=== PATIENT | male | born 1965 | race Caucasian/White ===

== ENCOUNTER 2024-12-29 23:50 | Observation (INO) | payer OTHER, SELFPAY ==
[2024-12-29 20:48] VITALS: BP 180/136
[2024-12-29 21:04] LABS: Hematocrit 30.3 % (39.0-52.0); Hemoglobin 10.1 g/dL (13.0-18.0); Mean Corp Hgb Conc. 33.3 g/dL (33.0-37.0); Mean Corpuscular Volume 93.2 fL (80.0-94.0); Nucleated Red Blood Cells % 0 % (-); Platelet Count 281 10^3/uL (130-400); Red Cell Dist. Width 13.2 % (11.5-14.5)
[2024-12-29 21:16] LABS: INR 1.17; PT 15.2 Sec (11.4-14.6)
[2024-12-29 21:17] LABS: APTT 31.5 Sec (23.4-35.0)
[2024-12-29 21:38] LABS: Troponin I 0.012 ng/ml
[2024-12-29 21:57] LABS: Blood Urea Nitrogen 38 mg/dl (9-20); Calcium 8.9 mg/dl (8.4-10.2); Carbon Dioxide 24 mmol/L (22-30); Chloride 108 mmol/L (98-107); Estimated Creatinine Clearance 27 ml/min; Glucose 206 mg/dl (70-99); Sodium 135 mmol/L (135-145); eGFR 24.46
[2024-12-29] MEDS: TYLENOL 1000 MG PO (22:20)
[2024-12-29 22:22] VITALS: BP 130/56
--- NOTE | 2024-12-29 22:23 | ED.GENMED ---
History of Present Illness
General
Chief Complaint: Weakness
Time Seen by Provider: 12/29/24 21:39
Nursing documentation reviewed up to this point in time: agreed with
History of Present Illness
History of Present Illness:
59-year-old male brought to the ER from his long-term care facility for evaluation of worsening left-sided weakness. Patient is status post CVA and has been a resident at a snf since that time. He states that he always has weakness since
the stroke but today felt generally worse. Patient has very limited mobility and is also complaining of pain in his right foot. He denies any nausea or vomiting. No chest pain. No shortness of breath but states he has been coughing today. He
denies headache but may be experiencing more blurriness to his vision.
Review of Systems
Review of Systems
Allergies reviewed?: Yes
Phy Exam
Physical Exam
Physical Exam:
Patient is awake, alert, appears in no acute distress, head is NCAT, PERRL, EOMI mucous membranes moist, conjunctiva pink, heart regular rate and rhythm without murmurs or ectopy, lungs are clear to auscultation without wheezes rales or rhonchi, no
JVD, abdomen is soft and nontender on palpation, extremities without edema, patient with weakness on handgrip left upper extremity comparison to right but no pronator drift noted, patient unable to lift his left leg off of the bed for more than 2
seconds, he has full strength right lower extremity, 2+ DP pulses present symmetric bilateral feet, there is a area of ecchymosis present on the posterior aspect of the right heel without surrounding erythema concerning for pressure wound
Course
Orders/Labs/Results
Orders:
Orders
12/29/24 20:52
Electrocardiogram (*1) Urgent
Reason for Study: Other
Other Reason for Exam: Possible Stroke
CT Head W/o Iv Contrast Urgent
Comment:
Reason For Exam: weakness to left side
Cardiac Monitoring- Treatment ONCE
EKG- Treatment ONCE
IV Insert/Care/Rem.- Treatment PRN
Vital Signs As Directed
Frequency: Other
Weight As Directed
Frequency: Once
Comment: ZERO STRETCHER SCALE FOR ACCURATE WEIGHT
O2 Therapy [RESP] Urgent
Titrate/Wean O2 to maintain O2 sat greater than (%): 93
Special Instructions: MAINTAIN CONTINUOUS O2 SATS > OR = 93%
12/29/24 20:55
Basic Metabolic Panel Urgent
Complete Blood Count/With Diff Urgent
PTT Urgent
Prothrombin Time Urgent
Troponin I Urgent
Urinalysis Reflex To Culture Urgent
Date Specimen was Collected: 12/29/24
Time Specimen was Collected: 20:52
12/29/24 21:45
Acetaminophen [Tylenol] 1,000 mg PO NOW STA
12/29/24 21:47
CR Chest - 2 Views Urgent
Comment:
Reason For Exam: cough
12/29/24 22:26
0.9% Sodium Chloride 500 ml [Nss] 500 ml IV BOLUS
12/29/24 22:38
BMP [Basic Metabolic Panel] Urgent
COVID-19 Antigen Urgent
Source: Nasal Swab
Abnormal Lab Results
12/29/24
20:55
RBC 3.25 L 10^6/uL
(4.70-6.10)
Hgb 10.1 L g/dL
(13.0-18.0)
Hct 30.3 L %
(39.0-52.0)
MCH 31.1 H pg
(27.0-31.0)
Absolute Monos (auto) 0.8 H 10^3/uL
(0.1-0.6)
Lymphocytes % 19.1 L %
(20.5-51.1)
Monocytes % 13.1 H %
(1.7-9.3)
Eosinophils % 8.4 H %
(0-6)
PT 15.2 H Sec
(11.4-14.6)
Chloride 108 H mmol/L
(98-107)
BUN 38 H mg/dl
(9-20)
Creatinine 2.9 H mg/dL
(0.7-1.3)
Glucose 206 H mg/dl
(70-99)
12/29/24 20:55
CBC shows mild anemia, no indication for blood transfusion. Creatinine is elevated at 2.9 along with elevation in BUN. No prior labs for comparison
Vital Signs
Initial and Last Documented VS:
Initial Vital Signs
Temp Pulse Resp BP Pulse Ox
98.4 F 45 16 180/136 96
12/29/24 20:48 12/29/24 20:48 12/29/24 20:48 12/29/24 20:48 12/29/24 20:48
Last Documented Vital Signs
Temp Pulse Resp BP Pulse Ox
98.4 F 43 12 180/136 99
12/29/24 20:48 12/29/24 21:15 12/29/24 21:15 12/29/24 20:48 12/29/24 22:26
MDM/Problems Addressed
Differential Diagnosis Includes:
Differential diagnosis to consider but not limited to new CVA, worsened CVA symptoms related to possible ANUP, electrolyte dyscrasia, infection along with other etiologies considered
Chronic conditions affecting care:
Poor mobility, prior stroke, congestive heart failure, hypertension, hyperlipidemia, diabetes, peripheral vascular disease
*Radiology
Radiology exam reviewed: preliminary read by ED provider (I independently viewed and interpreted two-view chest x-ray showing mild cardiomegaly, no infiltrates) and radiology read reviewed (IMPRESSION: No acute intracranial abnormalities. Small old
right frontal lobe infarct. Findings compatible with diffuse cortical atrophy with nonspecific white matter changes as described above.)
*Pulse Oximetry
SaO2: 99
Oxygen Mode of Delivery: Room air
Patient hypoxic: no
*EKG
Interpreted by ED Provider?: Yes (I independently viewed and interpreted twelve-lead EKG showing sinus bradycardia, rate 44, normal axis, nonspecific ST changes without evidence for acute ischemia, no prior for comparison)
*[employer]ing [employer]ator Interpretation
Rate: bradycardiac (I independently viewed and interpreted rhythm strip showing sinus bradycardia, no ectopy)
*Critical Care Note
Total Time (30-74mins, 75-104mins- exclusive of procedures): Not Applicable
Update Note
Update Note:
Patient resting with stable appearance throughout time in the ER. IV fluids ordered given elevation in creatinine, no prior labs for comparison. I did review medical records brought to the ER from his long-term care facility-no labs were included
but I was able to review medication list. No evidence for acute process seen on CT head. Chest x-ray is clear. I reviewed full patient presentation with the hospitalist accepts patient for admission for further hydration and evaluation in light
of new weakness
ED Attending Note
-
Portions of this chart may have been created with voice recognition software.� Occasional wrong word or��sound alike� substitutions may have occurred due to the inherent limitations of voice recognition software.
Discharge Plan
Departure
Prescriptions:
No Action
atorvastatin 40 mg Tablet
40 mg PO HS
Glucagon Emergency Kit 1 mg Kit
1 mg IM PRN PRN (Reason: bs<60)
acetaminophen 325 mg Tablet
650 mg PO Q6H PRN (Reason: pain/fever)
carvedilol 12.5 mg Tablet
25 mg PO BID
trazodone 50 mg Tablet
50 mg PO DAILY
sennosides-docusate sodium 8.6-50 mg Tablet
1 tab-cap PO HS
dextrose [Glucose Gel] 40 % Gel
10 g PO Q15M PRN (Reason: bs < 60)
clopidogrel 75 mg Tablet
75 mg PO DAILY
levothyroxine 75 mcg Tablet
75 mcg PO DAILY
isosorbide dinitrate [Isordil Titradose] 30 mg Tablet
30 mg PO DAILY
magnesium hydroxide [Milk of Magnesia] 400 mg/5 mL Suspension
5 ml PO DAILY PRN (Reason: no bm)
nifedipine 60 mg Tablet Extended Release 24hr
60 mg PO DAILY
tamsulosin 0.4 mg Capsule
0.4 mg PO HS
bisacodyl 10 mg Suppository
10 mg AR DAILY PRN (Reason: no BM)
hydralazine 100 mg Tablet
100 mg PO TID
Fleet Enema 19-7 gram/118 mL Enema
118 ml AR PRN PRN (Reason: if suppository not affective)
aspirin 81 mg Tablet,Chewable
81 mg PO DAILY
risperidone 1 mg Tablet
1 mg PO BID
nicotine 7 mg/24 hr Patch 24 Hour
1 patch TRANSDERMAL Q24H
insulin lispro 100 unit/mL Insulin Pen
8 unit SC MEALS
Lantus U-100 Insulin 100 unit/mL Cartridge
25 unit SC HS
cholecalciferol (vitamin D3) 1,250 mcg (50,000 unit) Capsule
1,250 mcg PO .MON
calcium acetate 667 mg Tablet
667 mg PO MEALS
Interventions
Interventions:
*Risk Screen - Suicide Last Done: 12/29/24 20:48
*General Assessment Last Done: 12/29/24 20:48
*Neglect/Abuse Screening Last Done: 12/29/24 20:48
*ED- Fall Risk Assessment Last Done: 12/29/24 20:48
*ED COVID-19 Vaccine History Last Done: 12/29/24 20:48
ED- Cardiac Assessment Last Done: 12/29/24 21:10
ED- Neurological Assessment Last Done: 12/29/24 21:13
Discharge Date and Time
Print Language: SAMMARINESE
[2024-12-29] MEDS: NSS 500 IV (22:41)
[2024-12-29 23:00] VITALS: BP 130/61
[2024-12-29 23:03] LABS: COVID-19 Antigen Negative (Negative)
[2024-12-29 23:25] VITALS: BMI 28.4
--- NOTE | 2024-12-29 23:42 | HPS.HSE ---
Family Physician
-
Family Physician:
Chief Complaint
-
Chest Pain
History of Present Illness
Patient is a 59y M with PMH significant for ASCVD, hypertension and CKD who presents to ED complaining of chest pain. Initial EMS paperwork and ED report states that patient presented for increased weakness. Pateint tells me that he woke from a
nap around 8PM this evening with left sided chest pain. He reports associated dizziness, nausea, SOB and diaphoresis. he states that his symptoms have since resolved. He is pain free at present. He reports feeling generally weak - but denies any
new focal weakness. He has chronic L sided weakness following prior CVA 3 years ago.
Patient notes that he is typically hospitalized at [facility] for his medical needs. He was last there about three weeks ago - also for chest pain.
Medical History
Past Medical History
Past Medical History: Reports Other
Additional Past Medical History:
ASCVD (CAD, CVA, PAD)
Multidrug Resistant Hypertension
DM-II
CKD IIIB
CVA with Left Hemiparesis
Chronic Anemia
Depression
GERD
BPH
Past Surgical History: Reports Other
Additional Past Surgical History:
CABG
Other surgeries are unknown
Social History
Tobacco: Former Smoker
Alcohol: None
Drug: None
Living: [facility]
Family History
Family History: Not pertinent
Allergies / Home Medications
Allergies reflects when Allergies were last updated in [employer].
Home Medications with original date entered in [employer]
Allergy/Medication List:
Allergies
Allergy/AdvReac Type Severity Reaction Status Date / Time
Iodinated Contrast Media Allergy Unknown Verified 12/29/24 21:04
shellfish derived Allergy Unknown Verified 12/29/24 21:04
Home Medications
acetaminophen 325 mg tablet 650 mg PO Q6H PRN pain/fever 12/29/24
aspirin 81 mg chewable tablet 81 mg PO DAILY 12/29/24
atorvastatin 40 mg tablet 40 mg PO HS 12/29/24
bisacodyl 10 mg rectal suppository 10 mg [place] DAILY PRN no BM 12/29/24
calcium acetate 667 mg tablet 667 mg PO MEALS 12/29/24
carvedilol 12.5 mg tablet 25 mg PO BID 12/29/24
cholecalciferol (vitamin D3) 1,250 mcg (50,000 unit) capsule 1,250 mcg PO .MON 12/29/24
clopidogrel 75 mg tablet 75 mg PO DAILY 12/29/24
dextrose 40 % oral gel (Glucose Gel) 10 g PO Q15M PRN bs < 60 12/29/24
glucagon 1 mg injection kit 1 mg IM PRN PRN bs<60 12/29/24
hydralazine 100 mg tablet 100 mg PO TID 12/29/24
insulin glargine 100 unit/mL subcutaneous cartridge 25 unit SC HS 12/29/24
insulin lispro 100 unit/mL subcutaneous pen 8 unit SC MEALS 12/29/24
isosorbide dinitrate 30 mg tablet 30 mg PO DAILY 12/29/24
levothyroxine 75 mcg tablet 75 mcg PO DAILY 12/29/24
magnesium hydroxide 400 mg/5 mL oral suspension (Milk of Magnesia) 5 ml PO DAILY PRN no bm 12/29/24
nicotine 7 mg/24 hr daily transdermal patch 1 patch transdermal Q24H 12/29/24
nifedipine 60 mg tablet,extended release 24 hr 60 mg PO DAILY 12/29/24
risperidone 1 mg tablet 1 mg PO BID 12/29/24
sennosides 8.6 mg-docusate sodium 50 mg tablet 1 tab-cap PO HS 12/29/24
sodium phosphates 19 gram-7 gram/118 mL enema (Fleet Enema) 118 ml [place] PRN PRN if suppository not affective 12/29/24
tamsulosin 0.4 mg capsule 0.4 mg PO HS 12/29/24
trazodone 50 mg tablet 50 mg PO DAILY 12/29/24
Review of Systems
-
History Source: Patient
Constitutional: Reports Fatigue; Denies Fever or Chills
EENT: Denies Sore Throat
Respiratory: Reports Trouble Breathing; Denies Cough
Cardiac: Reports Chest Pain and Diaphoresis; Denies Palpitations
Abdomen/GI: Reports Nausea; Denies Abdominal Pain, Vomiting or Diarrhea
: Denies Dysuria, Frequency or Flank Pain
Musculoskeletal: Denies Joint Pain or Edema
Neurological: Reports Dizzy and Weakness; Denies Headache
Psych: Denies Depression or Anxiety
Physical Exam
Vital Signs
Vital Signs
Temp Pulse Resp BP Pulse Ox
98.4 F 43 18 180/136 99
12/29/24 20:48 12/29/24 21:15 12/29/24 22:00 12/29/24 20:48 12/29/24 22:26
Physical Exam
General: Other (59y M with depressed affect is resting comfortably.)
HEENT: Moist mucous membranes and PERRLA
Respiratory: Clear; No Wheezes, Rales or Rhonchi
Cardiac: S1/S2 and Regular Rhythm; No Murmur
GI: Soft, Non Tender, Non Distended and Normal Bowel Sounds
Musculoskeletal: No Clubbing, No Cyanosis and No Edema
Neuro: AO x 3 and Other (L weakness - chronic and unchanged per patient.)
Laboratory Results
-
12/29/24 20:55
Laboratory Results
PT 15.2 Sec (11.4-14.6) H 12/29/24 20:55
INR 1.17 12/29/24 20:55
APTT 31.5 Sec (23.4-35.0) 12/29/24 20:55
Total Bilirubin Cancelled 12/29/24 20:55
AST Cancelled 12/29/24 20:55
ALT Cancelled 12/29/24 20:55
Alkaline Phosphatase Cancelled 12/29/24 20:55
Troponin I 0.012 ng/ml 12/29/24 20:55
Impression/Plan
-
A/P: Patient is a 59y M with PMH significant for ASCVD, L hemiparesis s/p prior CVA and CKD IIIB who presents to ED for evaluation of chest pain +/- weakness.
Chest Pain
ASCVD
- Observe overnight for further evaluation and treatment.
- Initial EKG without evident ischemia. Initial troponin unremarkable.
- Patient notes that he is pain-free at present.
- Monitor on telemetry.
- Follow serial troponin to peak.
- Continue current CV med regimen including DAPT, statin, etc.
- Cardiology evaluation if any recurrent chest pain or significant increase in troponin
- Obtain recent records from [facility] for review.
ANUP v CKD
- Patient has known diagnosis of CKD IIIB per [place] record.
- Current SCr = 2.9 - no prior labs to compare.
- Not clear that this is a significant change from his baseline.
- Obtain prior records as noted above.
- Follow SCr for changes.
Left Hemiparesis as Late Effect of CVA
- Patient with some generalized / global weakness - but no new focal deficits.
- CT head in the ED was unremarkable.
- Follow serial neuro exams.
- Continue current med regimen as noted above.
Multidrug Resistant Hypertension
- BP elevated in the ED.
- Continue extensive multidrug regimen and adjust as needed / able for improved BP control.
- If patient has recurrent chest pain - consider adding IV NTG for pain / BP control (pain free at present).
DM-II
- Stable. Continue basal : bolus insulin regimen.
- Follow glucose and cover with SSI as needed.
- Update A1C.
Anemia of CKD
- Unclear baseline. Obtain prior records as noted.
- Follow H&H for any changes.
Major Depression
- Patient currently with flat / depressed affect.
- Continue trazodone (which is only PRN for sleep).
- Continue risperidone.
DVT Prophylaxis: Subcut Heparin
Code Status: Full
[2024-12-29 23:43] LABS: Blood Urea Nitrogen 37 mg/dl (9-20); Calcium 8.8 mg/dl (8.4-10.2); Carbon Dioxide 24 mmol/L (22-30); Chloride 110 mmol/L (98-107); Estimated Creatinine Clearance 27 ml/min; Glucose 195 mg/dl (70-99); Potassium 4.6 mmol/L (3.5-5.1); Sodium 137 mmol/L (135-145); eGFR 24.46
[2024-12-30] VITALS (11 sets, daily range): BP systolic 111–182; BP diastolic 45–74; PULSE 44; O2SAT 98; BMI 27.6
[2024-12-30 02:05] LABS: Glucose - Point of Care 169 mg/dl (70-99)
[2024-12-30] MEDS: NICODERM TRANSDERMAL 7 MG TRANSDERM (02:27)
[2024-12-30 03:37] LABS: Troponin I 0.013 ng/ml
--- NOTE | 2024-12-30 04:22 | PTCARENOTE ---
Patient received from ED via stretcher and was pulled to bed by staff. He was drowsy with slurred speech but became more arousable. He was oriented to room and surroundings. See nursing assessment for physical findings. NIH 4. See wound care.
WOC consult placed. Call clark in reach.
[2024-12-30] MEDS: SYNTHROID 75 MCG PO (05:01)
[2024-12-30 05:19] LABS: Urine Character Clear (Clear)
[2024-12-30 05:29] LABS: Urine Squamous Cell 0-2 /LPF (Few)
[2024-12-30 05:30] LABS: Urine Red Blood Cell 0-2 /HPF (0-2); Urine White Cell 0-2 /HPF (0-5)
--- NOTE | 2024-12-30 08:07 | W.PN.HOSP.TC ---
Addendum entered and electronically signed by Emma Ravi MD 12/30/24 12:34:
Clarified with geriatric case manager, patient is a [facility] at a [facility]. Will discharge him today back to [place] after review of labs.
Original Note:
Today's Communication/Plan
-
Opponent is negative, and patient is CP free however he states his main issue was acute worsening of weakness. Follow-up PT/OT eval
Patient is on the streets. CM consult
Assessment / Plan
Assessment / Plan
59M w/ CAD, HTN and CKD p/w chest pain.
Chest Pain�resolved
- Initial EKG without evident ischemia. troponin x 3 negative.
- Patient notes that he is pain-free at present.
- Monitor on telemetry.
- Continue current CV med regimen including DAPT, statin, etc.
- Cardiology evaluation if any recurrent chest pain or significant increase in troponin
- Obtain recent records from [facility] for review.
ANUP v CKD
- Patient has known diagnosis of CKD IIIB per [place] record.
- Current SCr = 2.9 - no prior labs to compare.
- Not clear that this is a significant change from his baseline.
- Obtain prior records as noted above.
- Follow SCr for changes.
Left Hemiparesis as Late Effect of CVA
- Patient with some generalized / global weakness - but no new focal deficits.
- CT head in the ED was unremarkable.
- Follow serial neuro exams.
- Continue current med regimen as noted above.
As patient presents states he has worsening weakness, will have PT/OT eval
Multidrug Resistant Hypertension
- BP elevated in the ED. Now controlled
- Continue home multidrug regimen and adjust as needed / able for improved BP control.
- If patient has recurrent chest pain - consider adding IV NTG for pain / BP control (pain free at present).
DM-II
- Stable. Continue basal : bolus insulin regimen.
- Follow glucose and cover with SSI as needed.
- Hgb A1C -9%. Review outpatient labs to find out baseline
Anemia of CKD
- Unclear baseline. Obtain prior records as noted.
- Follow H&H for any changes.
Major Depression
- Patient currently with flat / depressed affect.
- Continue trazodone (which is only PRN for sleep).
- Continue risperidone.
DVT Prophylaxis: Subcut Heparin
Code Status: Full
Anticipated Discharge: Within 24 hours
Subjective/Interval History
-
Date of Service: December 30, 2024
Patient denies chest pain. States that came in because 'I had a stroke', says he woke up with left-sided weakness, similar to his previous stroke, right arm and right leg, and his face felt weak.
Patient states [place] on the streets.
Objective Data
-
Labs:
Laboratory Results
12/29/24 12/29/24 12/30/24
20:55 22:38 07:37
WBC 6.4 Pending
Hgb 10.1 L Pending
Hct 30.3 L Pending
Plt Count 281 Pending
PT 15.2 H
INR 1.17
APTT 31.5
Sodium 135 137 Pending
Potassium 4.6 Pending
Chloride 108 H 110 H Pending
Carbon Dioxide 24 24 Pending
BUN 38 H 37 H Pending
Creatinine 2.9 H 2.9 H Pending
Glucose 206 H 195 H Pending
Calcium 8.9 8.8 Pending
Total Bilirubin Cancelled
AST Cancelled
ALT Cancelled
Alkaline Phosphatase Cancelled
Vital Signs:
Vital Signs
Temp Pulse Resp BP Pulse Ox
97.4 F 54 18 154/64 95
12/30/24 03:24 12/30/24 03:24 12/30/24 03:24 12/30/24 03:24 12/30/24 03:24
Review of Systems
-
All other systems: Reviewed and negative
Physical Exam
-
General: No Apparent Distress
HEENT: Moist Mucous Membranes, Anicteric and PERRLA
Respiratory: Clear to Auscultation; Negative Wheezes, Rales or Rhonchi
Cardiac: Regular Rhythm and S1/S2; Negative Murmur, Rub or Gallop
GI: Soft, Nontender, Nondistended and Normal Bowel Sounds
Musculoskeletal: No Edema
Skin: Warm and Dry; Negative Rash, Ulcers or Lesions
Neuro: Awake, AO x 3 and Other (Strength 4 out of 5 bilateral upper extremity, bilateral lower extremity)
Hematologic / Lymphatic: No Lymphadenopathy
Psych: Calm
Data Reviewed
-
CT Scan: Report Reviewed by me
Labs: Labs Reviewed by me
[2024-12-30 08:30] LABS: Glucose - Point of Care 180 mg/dl (70-99)
[2024-12-30] MEDS: PROCARDIA XL (EXTENDED RELEASE) 60 MG PO (08:36)
[2024-12-30] MEDS: PLAVIX 75 MG PO (08:37)
[2024-12-30] MEDS: LOW STRENGTH ASPIRIN 81 MG PO (08:37)
[2024-12-30] MEDS: APRESOLINE 100 MG PO ×3 (08:37→21:31)
[2024-12-30] MEDS: RISPERDAL 1 MG PO ×2 (08:38→20:03)
[2024-12-30] MEDS: PHOSLO 667 MG PO ×3 (08:38→16:31)
[2024-12-30] MEDS: COREG PO ×2 (08:39→19:39)
[2024-12-30] MEDS: SORBITRATE 30 MG PO (08:39)
[2024-12-30] MEDS: HEPARIN 5000 UNITS SC ×2 (08:39→20:03)
[2024-12-30 08:40] LABS: Hematocrit 32.5 % (39.0-52.0); Hemoglobin 10.9 g/dL (13.0-18.0); Mean Corp Hgb Conc. 33.5 g/dL (33.0-37.0); Mean Corpuscular Volume 94.2 fL (80.0-94.0); Platelet Count 298 10^3/uL (130-400); Red Cell Dist. Width 13.2 % (11.5-14.5)
[2024-12-30] MEDS: CATAPRES 0.2 MG PO ×2 (08:40→20:03)
[2024-12-30] MEDS: NOVOLOG FLEXPEN-LOW RESISTANCE 1 UNITS SC (08:41)
[2024-12-30] MEDS: NOVOLOG FLEXPEN 8 UNITS SC ×3 (08:46→16:32)
[2024-12-30 09:03] LABS: Blood Urea Nitrogen 34 mg/dl (9-20); Calcium 9.2 mg/dl (8.4-10.2); Carbon Dioxide 24 mmol/L (22-30); Chloride 109 mmol/L (98-107); Estimated Creatinine Clearance 26 ml/min; Glucose 169 mg/dl (70-99); HDL Cholesterol 42 mg/dl; LDL Cholesterol, Calculated 77 mg/dl; Potassium 4.3 mmol/L (3.5-5.1); Sodium 139 mmol/L (135-145); Very Low Density Lipoprotein 35 mg/dl (0-30); eGFR 23.49
[2024-12-30 09:14] LABS: Troponin I < 0.012 ng/ml
[2024-12-30 11:15] LABS: Glycohemoglobin (HgbA1c) 9.0 % (4.0-5.6)
--- NOTE | 2024-12-30 11:15 | CM ---
CM reviewed chart, patient seen bedside, initial assessment completed.
Patient is a 59 year old male with PMH significant for ASCVD, hypertension and CKD who presents to ED complaining of chest pain.
Patient is a LTC resident at [facility]. Per Carola (Admissions [facility]) patient is typically AOx3, typically ambulatory with RW assist x1 or contact guard, feed self independently, assist X1 or contact guard for dressing/toileting. Patient
reports he uses WC at facility. PCP James Red, pharmacy [facility]. Per [facility], patient does have MA, working on obtaining LTC MA at facility, patient is currently listed as self-pay. OBS form reviewed, provided, placed in chart.
Plan; return to [facility] LT when stable
[2024-12-30 12:06] LABS: Glucose - Point of Care 254 mg/dl (70-99)
--- NOTE | 2024-12-30 12:12 | PTCARENOTE ---
attending notified pt SB on monitor HR low 40's BP 145/54, asymptomatic drowsy but easily aroused to verbal stimuli.
[2024-12-30] MEDS: NOVOLOG FLEXPEN-LOW RESISTANCE 3 UNITS SC ×2 (12:27→16:32)
[2024-12-30] MEDS: TYLENOL 650 MG PO ×2 (14:16→20:30)
[2024-12-30 16:25] LABS: Glucose - Point of Care 200 mg/dl (70-99)
[2024-12-30 21:26] LABS: Glucose - Point of Care 182 mg/dl (70-99)
[2024-12-30] MEDS: LANTUS 0.25 UNITS SC (21:29)
[2024-12-30] MEDS: FLOMAX 0.4 MG PO (21:32)
[2024-12-30] MEDS: LIPITOR 40 MG PO (21:32)
[2024-12-31] MEDS: NICODERM TRANSDERMAL 7 MG TRANSDERM ×2 (02:04→13:09)
[2024-12-31 02:09] VITALS: BP 172/68
[2024-12-31 03:09] VITALS: BP 173/68
[2024-12-31] MEDS: APRESOLINE 10 MG IV (03:23)
--- NOTE | 2024-12-31 03:25 | PTCARENOTE ---
Pt with elevated BPs throughout shift, House [employer] notified order for 10 mg IV hydralazine- given at 0323 for BP 173/68 HR 57. Rechecked BP at 0504 175/69 HR 56 [place] [employer] aware, no new orders at this time.
[2024-12-31] MEDS: TYLENOL 650 MG PO ×2 (03:48→10:11)
[2024-12-31] MEDS: SYNTHROID 75 MCG PO (04:21)
[2024-12-31 05:04] VITALS: BP 175/69
[2024-12-31 06:00] VITALS: BMI 27.5
[2024-12-31 08:12] LABS: Glucose - Point of Care 141 mg/dl (70-99)
[2024-12-31 08:26] VITALS: BP 177/71
[2024-12-31] MEDS: PHOSLO 667 MG PO ×2 (08:27→12:06)
[2024-12-31] MEDS: NOVOLOG FLEXPEN-LOW RESISTANCE SC (08:27)
[2024-12-31] MEDS: APRESOLINE 100 MG PO (08:28)
[2024-12-31] MEDS: LOW STRENGTH ASPIRIN 81 MG PO (08:28)
[2024-12-31] MEDS: COREG 25 MG PO (08:28)
[2024-12-31] MEDS: CATAPRES 0.2 MG PO (08:29)
[2024-12-31] MEDS: PROCARDIA XL (EXTENDED RELEASE) 60 MG PO (08:29)
[2024-12-31] MEDS: RISPERDAL 1 MG PO (08:29)
[2024-12-31] MEDS: PLAVIX 75 MG PO (08:29)
[2024-12-31] MEDS: HEPARIN 5000 UNITS SC (08:29)
[2024-12-31] MEDS: SORBITRATE 30 MG PO (08:29)
[2024-12-31] MEDS: FLUSH (NSS) 1 FLUSH IV (08:30)
[2024-12-31 09:04] LABS: Hematocrit 33.3 % (39.0-52.0); Hemoglobin 10.9 g/dL (13.0-18.0); Mean Corp Hgb Conc. 32.7 g/dL (33.0-37.0); Mean Corpuscular Volume 95.1 fL (80.0-94.0); Platelet Count 307 10^3/uL (130-400); Red Cell Dist. Width 13.1 % (11.5-14.5)
[2024-12-31] MEDS: NOVOLOG FLEXPEN 8 UNITS SC ×2 (09:38→12:06)
[2024-12-31 09:45] LABS: Blood Urea Nitrogen 38 mg/dl (9-20); Calcium 9.3 mg/dl (8.4-10.2); Carbon Dioxide 24 mmol/L (22-30); Chloride 108 mmol/L (98-107); Estimated Creatinine Clearance 26 ml/min; Glucose 140 mg/dl (70-99); Potassium 4.8 mmol/L (3.5-5.1); Sodium 137 mmol/L (135-145); eGFR 23.49
[2024-12-31 09:51] VITALS: BMI 27.5
[2024-12-31 11:31] LABS: Glucose - Point of Care 244 mg/dl (70-99)
[2024-12-31 11:40] VITALS: BP 166/74
--- NOTE | 2024-12-31 11:46 | W.PN.HOSP.TC ---
Today's Communication/Plan
-
d/c
Assessment / Plan
Assessment / Plan
59M w/ CAD, HTN and CKD p/w chest pain.
Chest Pain�resolved - Initial EKG without evident ischemia. troponin x 3 negative. - Continue current CV med regimen including DAPT, statin, etc.
ANUP v CKD-- Patient has known diagnosis of CKD IIIB per [place] record - Current SCr = 2.9 - no prior labs to compare - Not clear that this is a significant change from his baseline - Obtain prior records as noted above.
Left Hemiparesis as Late Effect of CVA - Patient with some generalized / global weakness - but no new focal deficits.- CT head in the ED was unremarkable.
Multidrug Resistant Hypertension - BP elevated in the ED. Now controlled - Continue home multidrug regimen and adjust as needed / able for improved BP control.
DM-II - Stable. Continue basal : bolus insulin regimen - Follow glucose and cover with SSI as needed - Hgb A1C -9%. Review outpatient labs to find out baseline
Anemia of CKD - Unclear baseline. Obtain prior records as noted - Follow H&H for any changes.
Major Depression - Patient currently with flat / depressed affect - Continue trazodone (which is only PRN for sleep) - Continue risperidone.
DVT Prophylaxis: Subcut Heparin
Code Status: Full
Anticipated Discharge: Today
Subjective/Interval History
-
Date of Service: December 31, 2024
pt is chest pain free
Objective Data
-
Labs:
Laboratory Results
12/31/24
07:31
WBC 5.7
Hgb 10.9 L
Hct 33.3 L
Plt Count 307
Sodium 137
Potassium 4.8
Chloride 108 H
Carbon Dioxide 24
BUN 38 H
Creatinine 3.0 H
Glucose 140 H
Calcium 9.3
Vital Signs:
max temp for 24 hours
12/30/24
23:24
Temp 98.4 F
Vital Signs
Temp Pulse Resp BP Pulse Ox
98 F 54 18 166/74 95
12/31/24 11:40 12/31/24 11:40 12/31/24 11:40 12/31/24 11:40 12/31/24 11:40
I&O
12/30/24 12/31/24 01/01/25
06:59 06:59 06:59
Intake Total 840 / 840 240 / 240
Output Total 1900 / 1900 500 / 500
Balance -1060 / -1060 -260 / -260
Review of Systems
-
All other systems: Reviewed and negative
Physical Exam
-
General: Well Developed, Well Nourished and No Apparent Distress
HEENT: Normocephalic and Atraumatic
Respiratory: Clear to Auscultation; Negative Wheezes or Rhonchi
Cardiac: Regular Rhythm and S1/S2; Negative Murmur
GI: Soft, Nontender, Nondistended and Normal Bowel Sounds
Musculoskeletal: No Clubbing, No Cyanosis and No Edema
Skin: Warm
Neuro: Awake
Psych: Calm
--- NOTE | 2024-12-31 11:47 | CM ---
Chart Reviewed. Met pt at beside. pt to be discharge today per Dr. Perez back to [facility].Requesting insurance info from [facility]: Medicaid number is [id number]. NO family available to transport pt. Will set-up ambulance transfer.
Plan: DC to [facility]
Report# [phone] ask for 1st floor nurses station
[2024-12-31] MEDS: NOVOLOG FLEXPEN-LOW RESISTANCE 2 UNITS SC (12:06)
--- NOTE | 2024-12-31 12:09 | WOUNDNOTE ---
[facility] RN note: Patient admitted with chest pain.
See H&P for complete history.
PMH: Patient is from [facility],Multidrug Resistant Hypertension, DM-II, CKD IIIB, CVA with Left Hemiparesis, Chronic Anemia, Depression
GERD, BPH
Wound Location and type/assessment: Patient admitted with bilateral heel wounds. Left heel is a yellow, ecchymotic DTI and right lateral heel has an unstageable lateral heel DTI. See worklist for measurement and description. No drainage or odor
noted from either heel. Patient with a small, dry linear wound that appears to be from [facility]. The surrounding skin is blanchable red. Patient said he tries to use urinal at [facility] but is often incontinent. He says he sleeps on his side and tries to stay
off of his scrum. He also mentioned that the [facility] recently ordered heel relief boots for him. He says he is able to get OOB to transfer to chair with walker and assistance.
Appetite: fair
Pressure redistribution devices in place: Static air overlay ordered and to be placed on bed. Fiber filled boots ordered. Air cushion applied to chair.
Plan: Applied no-sting barrier and silicone foam to heels and off-loaded heels with pillows under calves until boots arrive. Applied barrier ointment to buttocks, covered with silicone border foam. Encourage use of urinal, consider use of condom
cath. RN Abbey updated. Will confirm orders and update care plan and discharge. Patient should have
Updated care plan and will follow as needed.
Note to case management of equipment requested for discharge: Patient should have air surface at facility.
Recommend follow up at wound care center upon discharge.
--- NOTE | 2024-12-31 12:41 | CM ---
Chart reviewed. Met pt chairside. Pt is discharged today. [facility] aware. Made ambulance arrangement back to [facility] via ambulance at 5:30pm. Pt and primary contact Key notified re transport.
Plan: DC back to [facility] today vai ambulance
--- NOTE | 2024-12-31 14:42 | W.DCSUMMARY ---
Discharge Summary
Discharge Data
Date of Admission: 12/29/24
Date of Discharge: 12/31/24
-
Pending Results: No
Hospital Course
Primary care physician : James Red
Principal Discharge diagnosis : Chest pain
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
Hospital Course : Patient was a 59-year-old male long[facility] who presented with left-sided chest pain. Patient stated that he woke from a nap around 8 PM on the evening of admission. He denied dizziness, nausea, shortness of
breath, or diaphoresis. Symptoms have since resolved. Patient was admitted.
Problem #1: Chest pain. This was resolved prior to his admission. Initial EKG was without any evidence of ischemia and troponins were checked and were negative x 3. He was continued on his current medication regimen.
Problem #2: All other medical issues. 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
major depression. The patient has never been here before. He does have a diagnosis of chronic kidney disease stage IIIb. Creatinine has been stable here since admission (2.9, 2.9, 3.0, 3.0). These medical issues were stable during his
hospitalization. Medications were continued as able.
Patient is stable for discharge back to his [facility] at this time. If there are any questions regarding this dictation or his hospital stay, please do not hesitate to call. Our office number is [phone].
Important imaging findings :
CHEST X-RAY IMPRESSION:
Heart at least top normal in size.
No acute pulmonary process.
HEAD CT SCAN IMPRESSION:
No acute intracranial abnormalities.
Small old right frontal lobe infarct.
Findings compatible with diffuse cortical atrophy with nonspecific white matter changes
Discharge Plan
-
Patient Disposition: [facility]/SNF
Discharge Diagnosis/Procedures: chest pain and weakness
Condition: Good
Diet: Diabetic, Carb Controlled
Activity: With assistance
Driving Restrictions: No driving
Other Services: PT and OT
Activity Restrictions/Additional Instructions:
Wound Care Instructions Sacrum- Apply barrier ointment PRN
Bilateral Heels- Clean with saline. Apply no-sting barrier and silicone foam to heels. Off-load heels with fiber filled boots when in bed
Patient needs air mattress
Air cushion to chair
Encourage frequent turning and repositioning
Follow up at wound care center call for an appointment.
Referrals:
James Red DO [Family Provider, Internal Medicine]
Prescriptions:
Continued
atorvastatin 40 mg Tablet
40 mg PO HS
glucagon 1 mg Kit
1 mg IM PRN PRN (Reason: bs<60)
acetaminophen 325 mg Tablet
650 mg PO Q6H PRN (Reason: pain/fever)
carvedilol 12.5 mg Tablet
25 mg PO BID
trazodone 50 mg Tablet
50 mg PO DAILY PRN (Reason: sleep)
sennosides-docusate sodium 8.6-50 mg Tablet
1 tab-cap PO HS
dextrose [Glucose Gel] 40 % Gel
10 g PO Q15M PRN (Reason: bs < 60)
clopidogrel 75 mg Tablet
75 mg PO DAILY
levothyroxine 75 mcg Tablet
75 mcg PO DAILY
isosorbide dinitrate 30 mg Tablet
30 mg PO DAILY
magnesium hydroxide [Milk of Magnesia] 400 mg/5 mL Suspension
5 ml PO DAILY PRN (Reason: no bm)
nifedipine 60 mg Tablet Extended Release 24hr
60 mg PO DAILY
tamsulosin 0.4 mg Capsule
0.4 mg PO HS
bisacodyl 10 mg Suppository
10 mg NJ DAILY PRN (Reason: no BM)
hydralazine 100 mg Tablet
100 mg PO TID
Fleet Enema 19-7 gram/118 mL Enema
118 ml NJ PRN PRN (Reason: if suppository not affective)
aspirin 81 mg Tablet,Chewable
81 mg PO DAILY
risperidone 1 mg Tablet
1 mg PO BID
nicotine 7 mg/24 hr Patch 24 Hour
1 patch TRANSDERMAL Q24H
insulin lispro 100 unit/mL Insulin Pen
8 unit SC MEALS
insulin glargine 100 unit/mL Cartridge
25 unit SC HS
cholecalciferol (vitamin D3) 1,250 mcg (50,000 unit) Capsule
1,250 mcg PO .MON
calcium acetate 667 mg Tablet
667 mg PO MEALS
Discharge Orders:
Discharge Patient (As Directed); Ordered 12/31/24
Ordered By: Germania Perez
Discharge Date and Time
Print Language: NIGERIAN
== END 2024-12-31 15:03 ==
LOC: 4 EAST ACU 23:50
PROVIDERS: Internal Medicine; ADMITTING PHYSICIAN Hospitalist; ATTENDING PHYSICIAN Internal Medicine; EMERGENCY PHYSICIAN Emergency Medicine; FAMILY PHYSICIAN Internal Medicine
DX: N17.9 Acute kidney failure, unspecified (principal); R53.1 Weakness; I69.352 Hemiplegia and hemiparesis following cerebral infarction affecting left dominant side; M79.671 Pain in right foot; R05.9 Cough, unspecified; I1A.0 Resistant hypertension; D63.1 Anemia in chronic kidney disease; I69.354 Hemiplegia and hemiparesis following cerebral infarction affecting left non-dominant side; I50.9 Heart failure, unspecified; I13.0 Hypertensive heart and chronic kidney disease with heart failure and stage 1 through stage 4 chronic kidney disease, or unspecified chronic kidney disease; E78.5 Hyperlipidemia, unspecified; E11.51 Type 2 diabetes mellitus with diabetic peripheral angiopathy without gangrene; G31.9 Degenerative disease of nervous system, unspecified; R07.89 Other chest pain; I25.10 Atherosclerotic heart disease of native coronary artery without angina pectoris; E11.22 Type 2 diabetes mellitus with diabetic chronic kidney disease; F32.9 Major depressive disorder, single episode, unspecified; R00.1 Bradycardia, unspecified; N18.32 Chronic kidney disease, stage 3b; N40.0 Benign prostatic hyperplasia without lower urinary tract symptoms; K21.9 Gastro-esophageal reflux disease without esophagitis; Z59.02 Unsheltered homelessness; Z95.1 Presence of aortocoronary bypass graft; Z87.891 Personal history of nicotine dependence; Z79.4 Long term (current) use of insulin; Z79.82 Long term (current) use of aspirin; Z79.890 Hormone replacement therapy; Z79.899 Other long term (current) drug therapy; Z91.041 Radiographic dye allergy status; Z91.013 Allergy to seafood; Z79.02 Long term (current) use of antithrombotics/antiplatelets
CPT/HCPCS: 70450; 71046; 80048; 80061; 81003; 81015; 82962; 83036; 84484; 85025; 85027; 85610; 85730; 87070; 87811; 93005; 96360; 96361; 97163; 99285; G0378

== ENCOUNTER 2025-01-08 10:47 | Emergency (ER) | payer OTHER, SELFPAY ==
[2025-01-08 10:51] VITALS: BP 142/57
[2025-01-08 10:54] VITALS: BP 142/57
[2025-01-08 10:55] LABS: Glucose - Point of Care 306 mg/dl (70-99)
[2025-01-08 11:38] VITALS: BP 121/68
[2025-01-08 12:08] LABS: Hematocrit 33.0 % (39.0-52.0); Hemoglobin 11.4 g/dL (13.0-18.0); Mean Corp Hgb Conc. 34.5 g/dL (33.0-37.0); Mean Corpuscular Volume 89.4 fL (80.0-94.0); Nucleated Red Blood Cells % 0 % (-); Platelet Count 331 10^3/uL (130-400); Red Cell Dist. Width 12.9 % (11.5-14.5)
[2025-01-08 12:17] LABS: APTT 29.5 Sec (23.4-35.0); INR 1.17; PT 15.2 Sec (11.4-14.6)
[2025-01-08 12:22] LABS: ALT (SGPT) 13 U/L (0-50); AST (SGOT) 12 U/L (17-59); Albumin 3.4 g/dl (3.5-5.0); Alkaline Phosphatase 89 U/L (38-126); Blood Urea Nitrogen 44 mg/dl (9-20); Calcium 9.0 mg/dl (8.4-10.2); Carbon Dioxide 23 mmol/L (22-30); Chloride 105 mmol/L (98-107); Glucose 302 mg/dl (70-99); Potassium 4.9 mmol/L (3.5-5.1); Sodium 135 mmol/L (135-145); Total Protein 6.2 g/dl (6.3-8.2); eGFR 19.52
--- NOTE | 2025-01-08 12:24 | ED.CVA ---
History of Present Illness
General
Chief Complaint: CVA/TIA Symptoms
Source: patient
Exam Limitations: none
Time Seen by Provider: 01/08/25 11:03
Nursing documentation reviewed up to this point in time: agreed with
Onset of Stroke Symptoms
Onset of symptoms known: No
Time pt last seen normal is known: No
History of Present Illness
History of Present Illness:
Patient is a 59-year-old male from [facility] with past medical history of CHF hypertension hyperlipidemia stroke with left hemiparesis type 2 diabetes anemia chronic kidney disease stage IIIb presents to the ER from [facility]. He was
reported the patient was leaning over to his left side while in the shower. When EMS arrived symptoms were resolved. Patient presents awake alert oriented x 3 he is able to give full history. He has chronic left upper and left lower extremity
weakness from previous CVA he does not feel a change in his chronic weakness at this time.
I spoke to nurse who reports he was in a chair in the shower and pt was not responding to her and leaning to the right. this lasted for 10- 15 min. Patient does not recall this. He does recall being in the shower.
Patient was recently admitted here December 29 and discharged December 31. That time he complained of chest pain. Had negative workup and was discharged back to long-term
Phy Exam
General Physical Exam
General Presentation: no apparent distress
General age: appears older than age
General Skin: warm and dry
General Habitus: normal
General Mental: alert
General Hydration: dry mucous membranes
Cardiovascular Exam
Cardiovascular Exam: regular rate/rhythm and no murmur
Pulmonary Exam
Pulmonary Exam: lungs clear and no respiratory distress
Neurological Exam
Neurological Exam: alert and oriented x3
[place] Coma Scale
Eye Opening: Spontaneous
Verbal Response: Oriented
Motor Response: Obeys Commands
GCS Total Score: 15
Musculoskeletal Exam
Musculoskeletal Exam: full ROM
Course
Orders/Labs/Results
Orders:
Orders
01/08/25 11:00
EKG [Electrocardiogram (*1)] Urgent
Reason for Study: Bradycardia / Tachycardia
01/08/25 11:01
EKG- Treatment ONCE
01/08/25 11:53
Cardiac Monitoring- Treatment ONCE
Vital Signs As Directed
Frequency: Other
Weight As Directed
Frequency: Once
Comment: ZERO STRETCHER SCALE FOR ACCURATE WEIGHT
01/08/25 11:58
Complete Blood Count/With Diff Urgent
Comprehensive Metabolic Panel Urgent
PTT Urgent
Prothrombin Time Urgent
Troponin I Urgent
01/08/25 13:24
CT Head W/o Iv Contrast Urgent
Comment:
Reason For Exam: change in ms
01/08/25 16:12
UA Reflex to Culture [Urinalysis Reflex To Culture] Urgent
Date Specimen was Collected: 01/08/25
Time Specimen was Collected: 16:11
Urine Microscopic Reflex Cult Urgent
01/08/25 16:34
0.9% Sodium Chloride 500 ml [Nss] 500 ml IV BOLUS
Abnormal Lab Results
01/08/25 01/08/25 01/08/25
10:54 11:58 16:12
RBC 3.69 L 10^6/uL
(4.70-6.10)
Hgb 11.4 L g/dL
(13.0-18.0)
Hct 33.0 L %
(39.0-52.0)
Absolute Lymphs (auto) 0.9 L 10^3/uL
(1.2-3.4)
Absolute Monos (auto) 0.7 H 10^3/uL
(0.1-0.6)
Absolute Eos (auto) 0.8 H 10^3/uL
(0-0.7)
Lymphocytes % 9.7 L %
(20.5-51.1)
Eosinophils % 9.2 H %
(0-6)
PT 15.2 H Sec
(11.4-14.6)
BUN 44 H mg/dl
(9-20)
Creatinine 3.5 H mg/dL
(0.7-1.3)
Glucose 302 H mg/dl
(70-99)
AST 12 L U/L
(17-59)
Total Protein 6.2 L g/dl
(6.3-8.2)
Albumin 3.4 L g/dl
(3.5-5.0)
Urine Bacteria (Reflex) Few A
(Negative)
Urine Glucose 1+ A
(Negative)
Urine Albumin (Reflex) 4+ A
(Neg - Trace)
POC Glucose 306 H mg/dl
(70-99)
01/08/25
16:47
RBC
Hgb
Hct
Absolute Lymphs (auto)
Absolute Monos (auto)
Absolute Eos (auto)
Lymphocytes %
Eosinophils %
PT
BUN
Creatinine
Glucose
AST
Total Protein
Albumin
Urine Bacteria (Reflex)
Urine Glucose
Urine Albumin (Reflex)
POC Glucose 169 H mg/dl
(70-99)
01/08/25 11:58
01/08/25 11:58
Vital Signs
Initial and Last Documented VS:
Initial Vital Signs
BP
142/57
01/08/25 10:51
Last Documented Vital Signs
Temp Pulse Resp BP Pulse Ox
98 F 80 17 146/71 98
01/08/25 10:54 01/08/25 17:30 01/08/25 17:15 01/08/25 16:00 01/08/25 16:45
Leather Grainer consulted with Physician
Leather Grainer consulted with physician?: Yes
Name of Physician Consulted: [facility]
MDM/Problems Addressed
Differential Diagnosis Includes:
Not limited to TIA, dehydration
MDM/Problems Addressed:
Patient is a 59-year-old male history of stroke with left-sided weakness sent from [facility]. Patient was getting a shower in the wheelchair and had an episode of unresponsiveness for about 10 minutes and was leaning to the right. Patient
presented awake alert symptoms were resolved when EMS reported to the nursing care facility. He has been asymptomatic here he has chronic left upper and lower extremity weakness but that is baseline. He has good range of motion to his right upper
and lower extremity. He answers questions he is not confused. He denies any chest pain shortness of breath. His CAT scan is negative. His urine appears negative. Sugar minimally elevated will give small bolus of fluids. No acute findings or
changes on EKG. No complaints of chest pain or shortness of breath. He has been awake alert and remained neurologically intact throughout the ER stay. This possible the patient had a syncopal episode however stable for d/c back to facility. d/c
w/ ed attending
*Radiology
Radiology exam reviewed: radiology read reviewed
*Pulse Oximetry
SaO2: 98
Oxygen Mode of Delivery: Room air
Patient hypoxic: no
*EKG
Interpreted by ED Provider?: Yes
*Critical Care Note
Total Time (30-74mins, 75-104mins- exclusive of procedures): Not Applicable
ED Attending Note
-
Portions of this chart may have been created with voice recognition software.� Occasional wrong word or��sound alike� substitutions may have occurred due to the inherent limitations of voice recognition software.
Discharge Plan
Departure
Patient Disposition: Longterm/SNF
Date of Disposition: 09/30/25
Time of Disposition: 16:42
Patient with high blood pressure during this ER visit?: Yes
Condition: Fair
Covid-19: Not Applicable
Discharge Problem:
Mental status change resolved
Instructions: BLOOD PRESSURE
Prescriptions:
No Action
atorvastatin 40 mg Tablet
40 mg PO HS
acetaminophen 325 mg Tablet
650 mg PO Q6HPRN PRN (Reason: MILD pain/fever)
carvedilol 12.5 mg Tablet
25 mg PO BID
trazodone 50 mg Tablet
50 mg PO DAILYPRN PRN (Reason: sleep)
sennosides-docusate sodium 8.6-50 mg Tablet
1 tab-cap PO HS
clopidogrel 75 mg Tablet
75 mg PO DAILY
levothyroxine 75 mcg Tablet
75 mcg PO DAILY
isosorbide dinitrate 30 mg Tablet
30 mg PO DAILY
magnesium hydroxide [Milk of Magnesia] 400 mg/5 mL Suspension
2,400 mg PO DAILYPRN PRN (Reason: no bm BY 3RD DAY)
nifedipine 60 mg Tablet Extended Release 24hr
60 mg PO DAILY
tamsulosin 0.4 mg Capsule
0.4 mg PO HS
bisacodyl 10 mg Suppository
10 mg ND DAILYPRN PRN (Reason: no BM AFTR MOM)
hydralazine 100 mg Tablet
100 mg PO TID
Fleet Enema 19-7 gram/118 mL Enema
118 ml ND DAILYPRN PRN (Reason: if suppository not affective)
aspirin 81 mg Tablet,Chewable
81 mg PO DAILY
risperidone 1 mg Tablet
1 mg PO BID
nicotine 7 mg/24 hr Patch 24 Hour
1 patch TRANSDERMAL Q24H
insulin lispro 100 unit/mL Insulin Pen
8 unit SC MEALS
cholecalciferol (vitamin D3) 1,250 mcg (50,000 unit) Capsule
1,250 mcg PO MO
calcium acetate 667 mg Tablet
667 mg PO MEALS
clonidine HCl 0.2 mg Tablet
0.2 mg PO BID
sodium bicarbonate 650 mg Tablet
1,300 mg PO BID
diphenhydramine HCl [Benadryl] 25 mg Capsule
25 mg PO BID
fluoxetine [Prozac] 10 mg Capsule
10 mg PO DAILY
hydroxyzine HCl 25 mg Tablet
25 mg PO TID
insulin glargine [Lantus Solostar U-100 Insulin] 100 unit/mL (3 mL) Insulin Pen
25 unit SC HS
Referrals:
Linda Galvan MD [Family Provider]
Activity Restrictions/Additional Instructions:
Patient presented here awake and alert in no acute distress at baseline. CAT scan negative no complaints of chest pain blood sugar minimally elevated patient was given small fluid bolus. Urinalysis looks negative he is afebrile with a normal white
renal function at baseline Return if any woresning of symtpoms
Interventions
Interventions:
*Risk Screen - Suicide Last Done: 01/08/25 10:54
*General Assessment Last Done: 01/08/25 13:18
*Neglect/Abuse Screening Last Done: 01/08/25 10:54
*ED- Fall Risk Assessment Last Done: 01/08/25 11:41
*ED COVID-19 Vaccine History Last Done: 01/08/25 11:41
*ED Influenza Vaccine History Last Done: 01/08/25 11:41
*Nursing Disposition Last Done: 01/08/25 19:04
ED- Pulmonary Assessment Last Done: 01/08/25 11:41
ED- Neurological Assessment Last Done: 01/08/25 11:41
ED- Cardiac Assessment Last Done: 01/08/25 11:41
Discharge Date and Time
Discharge Date/Time: 01/08/25 19:04
Print Language: ITALIAN
[2025-01-08 12:33] LABS: Troponin I 0.017 ng/ml
[2025-01-08 14:02] VITALS: BP 113/16
[2025-01-08 15:31] VITALS: BP 141/71
[2025-01-08 16:00] VITALS: BP 146/71
[2025-01-08 16:19] LABS: Urine Character Clear (Clear)
[2025-01-08 16:27] LABS: Urine Squamous Cell 0-2 /LPF (Few)
[2025-01-08 16:28] LABS: Urine Red Blood Cell 0-2 /HPF (0-2)
[2025-01-08] MEDS: NSS 500 IV (16:45)
[2025-01-08 16:49] LABS: Glucose - Point of Care 169 mg/dl (70-99)
== END 2025-01-08 19:04 ==
LOC: EMR 10:47
PROVIDERS: Nurse Practitioner; EMERGENCY PHYSICIAN Emergency Medicine; FAMILY PHYSICIAN Internal Medicine
DX: R41.82 Altered mental status, unspecified (principal); I13.0 Hypertensive heart and chronic kidney disease with heart failure and stage 1 through stage 4 chronic kidney disease, or unspecified chronic kidney disease; E11.22 Type 2 diabetes mellitus with diabetic chronic kidney disease; I50.9 Heart failure, unspecified; D63.1 Anemia in chronic kidney disease; N18.32 Chronic kidney disease, stage 3b; E78.5 Hyperlipidemia, unspecified; I69.354 Hemiplegia and hemiparesis following cerebral infarction affecting left non-dominant side
CPT/HCPCS: 99284; 96360; 70450; 80053; 81003; 81015; 82962; 84484; 85025; 85610; 85730; 93005

== ENCOUNTER 2025-01-31 02:35 | Inpatient (IN) | payer MEDICAID, SELFPAY ==
[2025-01-30 22:30] VITALS: BP 113/58
[2025-01-30 22:33] VITALS: BP 113/58
[2025-01-30 23:00] VITALS: BP 131/57
[2025-01-30 23:49] LABS: Hematocrit 31.7 % (39.0-52.0); Hemoglobin 10.7 g/dL (13.0-18.0); Mean Corp Hgb Conc. 33.8 g/dL (33.0-37.0); Mean Corpuscular Volume 92.7 fL (80.0-94.0); Nucleated Red Blood Cells % 0 % (-); Platelet Count 241 10^3/uL (130-400); Red Cell Dist. Width 12.7 % (11.5-14.5)
[2025-01-31] VITALS (26 sets, daily range): BP systolic 63–159; BP diastolic 47–72; PULSE 42–54; O2SAT 95–98; BMI 26.2; BMI 26.3
[2025-01-31 00:01] LABS: ALT (SGPT) 25 U/L (0-50); AST (SGOT) 26 U/L (17-59); Albumin 3.1 g/dl (3.5-5.0); Alkaline Phosphatase 73 U/L (38-126); Blood Urea Nitrogen 45 mg/dl (9-20); Calcium 9.2 mg/dl (8.4-10.2); Carbon Dioxide 28 mmol/L (22-30); Chloride 103 mmol/L (98-107); Estimated Creatinine Clearance 21 ml/min; Glucose 214 mg/dl (70-99); Magnesium 2.0 mg/dl (1.6-2.3); Potassium 4.3 mmol/L (3.5-5.1); Sodium 138 mmol/L (135-145); Total Protein 5.5 g/dl (6.3-8.2); eGFR 17.69
[2025-01-31 00:13] LABS: Troponin I 0.022 ng/ml
--- NOTE | 2025-01-31 00:15 | ED.GENMED ---
History of Present Illness
<JERRY Allen Jr. Last Filed: 01/31/25 02:33>
General
Chief Complaint: Change Level of Consciousness
Source: patient
Exam Limitations: none
Time Seen by Provider: 01/30/25 22:58
Nursing documentation reviewed up to this point in time: agreed with
History of Present Illness
History of Present Illness:
59-year-old male past medical history of CHF hypertension hyperlipidemia previous CVA CKD, diabetes presenting to the emergency department today with concerns of an episode where he became lethargic at his nursing facility blood pressure in the 70s
systolic. EMS was then called blood pressure was for EMS. He claims to have some vague ongoing headedness but denies any specific chest pain shortness of breath nausea vomiting numbness focal weakness.
Review of Systems
<Gaurang Champion Jr., PA-C - Last Filed: 01/31/25 02:33>
Review of Systems
Allergies reviewed?: Yes
All Other Systems: ROS reviewed and negative except as documented in HPI and ROS
Phy Exam
<JERRY Allen Jr. Last Filed: 01/31/25 02:33>
Physical Exam
Physical Exam:
GENERAL: Alert , in no apparent distress
EYE: pupils equal and reactive
NECK: Supple, no significant adenopathy.
ENT: o/p clr, mmm.
CARDIAC: Regular rate and rhythm .
LUNGS: Clear breath sounds bilaterally, no acute respiratory distress, no wheezes/rales/rhonchi
ABDOMEN: Soft, without focal tenderness, no r/g, no cvat
NEUROLOGICAL: Alert and oriented, no focal neuro deficits
SKIN: Warm and dry, skin intact.
MUSCULOSKELETAL: No edema, well perfused.
PSYCH: Normal and appropriate interaction.
Course
<JERRY Allen Jr. Last Filed: 01/31/25 02:33>
Orders/Labs/Results
Orders:
Orders
01/30/25 22:36
EKG [Electrocardiogram (*1)] Urgent
Reason for Study: Bradycardia / Tachycardia
EKG- Treatment ONCE
01/30/25 23:28
Urinalysis Reflex To Culture Urgent
01/30/25 23:35
Complete Blood Count/With Diff Urgent
Comprehensive Metabolic Panel Urgent
Magnesium Urgent
TSH Urgent
Troponin I Urgent
01/31/25 00:50
Orthostatic VS- Treatment ONCE
01/31/25 00:52
0.9% Sodium Chloride 500 ml [Nss] 500 ml IV BOLUS
01/31/25 02:16
Admit/Transfer Patient As Directed
Co-Sign Provider:
Level of Care: Inpatient admission
Assign to:: Telemetry
Physician / Group: Geovany
Diagnosis: Bradycardia / Hypotension
Reason for Telemetry: Arrhythmia
Date to Stop Telemetry: 02/03/25
Time to Stop Telemetry: 11:00
Reason for Hospitalization: Bradycardia / Hypotension
Expected length of stay greater than two midnights?: Yes
ELOS- Estimated Length of Stay in days: 2
I certify the patient meets the requirements for IP care: Yes
01/31/25 02:17
PRN Pain Medication Management As Directed
May give lesser potent ordered pain med per pt: Yes
preference::
Protocol:: Medication orders for pain may be administered in a
manner that supports deferring to patient preference
when the pt is:
- Requesting an ordered lesser potent pain medication.
Least to most potent pain medications are defined
as: acetaminophen < NSAID < tramadol < opioids
(morphine, oxycodone, hydromorphone).
- Requesting a lesser dose of the same medication IF
ORDERED.
- Requesting a less intrusive route of administration
if both routes are prescribed by the provider (PO <
IV).
01/31/25 02:19
Code Status As Directed
Resuscitation Status: Full Code
02/03/25 11:00
DC Protocol for Telemetry ONCE
Abnormal Lab Results
01/30/25
23:35
RBC 3.42 L 10^6/uL
(4.70-6.10)
Hgb 10.7 L g/dL
(13.0-18.0)
Hct 31.7 L %
(39.0-52.0)
MCH 31.3 H pg
(27.0-31.0)
Absolute Monos (auto) 1.0 H 10^3/uL
(0.1-0.6)
Absolute Eos (auto) 1.5 H 10^3/uL
(0-0.7)
Monocytes % 12.7 H %
(1.7-9.3)
Eosinophils % 20.0 H %
(0-6)
BUN 45 H mg/dl
(9-20)
Creatinine 3.8 H mg/dL
(0.7-1.3)
Glucose 214 H mg/dl
(70-99)
Total Protein 5.5 L g/dl
(6.3-8.2)
Albumin 3.1 L g/dl
(3.5-5.0)
01/30/25 23:35
01/30/25 23:35
Vital Signs
Initial and Last Documented VS:
Initial Vital Signs
Temp Pulse Resp BP Pulse Ox
97.5 F 52 17 113/58 98
01/30/25 22:30 01/30/25 22:30 01/30/25 22:30 01/30/25 22:30 01/30/25 22:30
Last Documented Vital Signs
Temp Pulse Resp BP Pulse Ox
97.5 F 43 11 114/57 94
01/30/25 22:30 01/31/25 02:00 01/31/25 00:15 01/31/25 02:00 01/31/25 02:00
<Rubia Patiño, DO - Last Filed: 01/31/25 01:29>
Orders/Labs/Results
Orders:
Orders
01/30/25 22:36
EKG [Electrocardiogram (*1)] Urgent
Reason for Study: Bradycardia / Tachycardia
EKG- Treatment ONCE
01/30/25 23:28
Urinalysis Reflex To Culture Urgent
01/30/25 23:35
Complete Blood Count/With Diff Urgent
Comprehensive Metabolic Panel Urgent
Magnesium Urgent
TSH Urgent
Troponin I Urgent
01/31/25 00:50
Orthostatic VS- Treatment ONCE
01/31/25 00:52
0.9% Sodium Chloride 500 ml [Nss] 500 ml IV BOLUS
01/31/25 02:16
Admit/Transfer Patient As Directed
Co-Sign Provider:
Level of Care: Inpatient admission
Assign to:: Telemetry
Physician / Group: Geovany
Diagnosis: Bradycardia / Hypotension
Reason for Telemetry: Arrhythmia
Date to Stop Telemetry: 02/03/25
Time to Stop Telemetry: 11:00
Reason for Hospitalization: Bradycardia / Hypotension
Expected length of stay greater than two midnights?: Yes
ELOS- Estimated Length of Stay in days: 2
I certify the patient meets the requirements for IP care: Yes
01/31/25 02:17
PRN Pain Medication Management As Directed
May give lesser potent ordered pain med per pt: Yes
preference::
Protocol:: Medication orders for pain may be administered in a
manner that supports deferring to patient preference
when the pt is:
- Requesting an ordered lesser potent pain medication.
Least to most potent pain medications are defined
as: acetaminophen < NSAID < tramadol < opioids
(morphine, oxycodone, hydromorphone).
- Requesting a lesser dose of the same medication IF
ORDERED.
- Requesting a less intrusive route of administration
if both routes are prescribed by the provider (PO <
IV).
01/31/25 02:19
Code Status As Directed
Resuscitation Status: Full Code
02/03/25 11:00
DC Protocol for Telemetry ONCE
Abnormal Lab Results
01/30/25
23:35
RBC 3.42 L 10^6/uL
(4.70-6.10)
Hgb 10.7 L g/dL
(13.0-18.0)
Hct 31.7 L %
(39.0-52.0)
MCH 31.3 H pg
(27.0-31.0)
Absolute Monos (auto) 1.0 H 10^3/uL
(0.1-0.6)
Absolute Eos (auto) 1.5 H 10^3/uL
(0-0.7)
Monocytes % 12.7 H %
(1.7-9.3)
Eosinophils % 20.0 H %
(0-6)
BUN 45 H mg/dl
(9-20)
Creatinine 3.8 H mg/dL
(0.7-1.3)
Glucose 214 H mg/dl
(70-99)
Total Protein 5.5 L g/dl
(6.3-8.2)
Albumin 3.1 L g/dl
(3.5-5.0)
01/30/25 23:35
01/30/25 23:35
Vital Signs
Initial and Last Documented VS:
Initial Vital Signs
Temp Pulse Resp BP Pulse Ox
97.5 F 52 17 113/58 98
01/30/25 22:30 01/30/25 22:30 01/30/25 22:30 01/30/25 22:30 01/30/25 22:30
Last Documented Vital Signs
Temp Pulse Resp BP Pulse Ox
97.5 F 43 11 114/57 94
01/30/25 22:30 01/31/25 02:00 01/31/25 00:15 01/31/25 02:00 01/31/25 02:00
<Gaurang Champion Jr., PA-C - Last Filed: 01/31/25 02:33>
MDM/Problems Addressed
MDM/Problems Addressed:
59-year-old male presenting to the emergency department from nursing facility with concerns of episode of lethargy where his blood pressure was in the 70s systolic. He denies any specific symptoms other than 'wooziness'. On arrival heart rate in
the 50s blood pressure normal afebrile. Patient in no distress denies any chest pain shortness of breath nausea vomiting or any specific symptoms. Patient denies any pain. Labs were obtained showing baseline kidney function slightly elevated
sugar level hemoglobin at baseline. 12-year-old female with concerning the patient's slight elevation of creatinine and BUN patient was given fluids. Patient then had orthostatic vital signs with significant decreased and systolic blood pressure.
Considering this plan to admit for monitoring.
<Gaurang Champion Jr., PA-C - Last Filed: 01/31/25 02:33>
*Pulse Oximetry
SaO2: 95
Oxygen Mode of Delivery: Room air
Patient hypoxic: no (94)
*Critical Care Note
Total Time (30-74mins, 75-104mins- exclusive of procedures): Not Applicable
ED Attending Note
<Gaurang Champion Jr., PA-C - Last Filed: 01/31/25 02:33>
-
Portions of this chart may have been created with voice recognition software.� Occasional wrong word or��sound alike� substitutions may have occurred due to the inherent limitations of voice recognition software.
<Rubia Patiño DO - Last Filed: 01/31/25 01:29>
ED Attending Note
Patient seen and examined by attending physician: Yes
I performed a history and physical exam of patient and discussed management with resident, I reviewed resident's note and agree with documented findings and plan of care.: Yes
ED Attending Note:
59-year-old gentleman with complex past medical history including insulin dependent diabetes, CHF, multidrug resistant hypertension, chronic kidney disease stage III-IV, hyperlipidemia, prior history of CVA with left hemiparesis. He is a resident
of a local correction.
Presents from correction after an episode of lethargy with noted hypotension with systolic blood pressure in the 70s. Upon EMS arrival patient awake and alert with blood pressure 100-110.
Prior records reviewed.
Patient hospitalized December 29 to December 31 for evaluation of chest pain. Unremarkable cardiac workup. During that hospitalization noted to have some episodes of sinus bradycardia but no episodes of hypotension. No change in medications and
discharged back to [facility].
Then an ED visit January 08 when patient was noted to have an episode of unresponsiveness while seated in a shower chair taking a shower. Unremarkable cardiac as well as neurologic evaluation. Labs were stable and unchanged from previous.
Patient remains awake and alert since arrival to the ED.
Oral mucosa is minimally dry.
Heart is regular rhythm, bradycardic in the 40s.
Lungs are clear to auscultation.
Blood pressure 113-126 systolic. Monitor shows sinus bradycardia in the 40s to 60s. Similar sporadic bradycardia noted during visits in December.
Blood pressure however is much improved compared to hospitalization in December where her systolic blood pressure was in the 170s. Improved to the 140s during ED visit January 08.
Upon review of medications, patient had been maintained on Coreg 12.5 mg twice daily during hospitalization in December. Coreg currently 25 mg twice daily. At this point unclear when Coreg was titrated up.
Labs are remarkable for uptrend in creatinine, previously 2.9-3.0, now 3.8. All other labs stable and unchanged.
With episode of hypotension, concern for overcorrection of hypertension combined with an element of mild dehydration, acute on chronic kidney disease.
Will check orthostatic vital signs and plan for gentle hydration with an IV bolus of normal saline solution.
01:20
Orthostatic vital signs markedly positive with systolic blood pressure dropping to 60 with sitting up accompanied with lethargy, lightheadedness.
As such patient will require acute hospitalization for continued IV hydration, medical management/adjustment of antihypertensive medications. Would start by titrating Coreg down to 12.5 twice daily.
Discharge Plan
Departure
Patient Disposition: Admit
Date of Disposition: 01/31/25
Time of Disposition: 02:33
Admit to: Med/Surg
Admit to doctor: Geovany
Presentation/result/management discussed w/ accepting MD/DO: Hospitalist
Patient with high blood pressure during this ER visit?: No
Condition: Good
Covid-19: Not Applicable
Discharge Problem:
Hypotension, Bradycardia, Dehydration
Prescriptions:
No Action
atorvastatin 40 mg Tablet
40 mg PO HS
acetaminophen 325 mg Tablet
650 mg PO Q6HPRN PRN (Reason: MILD pain/fever)
carvedilol 12.5 mg Tablet
25 mg PO BID
trazodone 50 mg Tablet
50 mg PO DAILYPRN PRN (Reason: sleep)
sennosides-docusate sodium 8.6-50 mg Tablet
1 tab-cap PO HS
clopidogrel 75 mg Tablet
75 mg PO DAILY
levothyroxine 75 mcg Tablet
75 mcg PO DAILY
isosorbide dinitrate 30 mg Tablet
30 mg PO DAILY
magnesium hydroxide [Milk of Magnesia] 400 mg/5 mL Suspension
2,400 mg PO DAILYPRN PRN (Reason: no bm BY 3RD DAY)
nifedipine 60 mg Tablet Extended Release 24hr
60 mg PO DAILY
tamsulosin 0.4 mg Capsule
0.4 mg PO HS
bisacodyl 10 mg Suppository
10 mg AR DAILYPRN PRN (Reason: no BM AFTR MOM)
hydralazine 100 mg Tablet
100 mg PO TID
Fleet Enema 19-7 gram/118 mL Enema
118 ml AR DAILYPRN PRN (Reason: if suppository not affective)
aspirin 81 mg Tablet,Chewable
81 mg PO DAILY
risperidone 1 mg Tablet
1 mg PO BID
nicotine 7 mg/24 hr Patch 24 Hour
1 patch TRANSDERMAL Q24H
insulin lispro 100 unit/mL Insulin Pen
8 unit SC MEALS
cholecalciferol (vitamin D3) 1,250 mcg (50,000 unit) Capsule
1,250 mcg PO MO
calcium acetate 667 mg Tablet
667 mg PO MEALS
clonidine HCl 0.2 mg Tablet
0.2 mg PO BID
sodium bicarbonate 650 mg Tablet
1,300 mg PO BID
fluoxetine [Prozac] 10 mg Capsule
10 mg PO DAILY
hydroxyzine HCl 25 mg Tablet
25 mg PO TID
insulin glargine [Lantus Solostar U-100 Insulin] 100 unit/mL (3 mL) Insulin Pen
25 unit SC HS
tramadol 100 mg Tablet
100 mg PO BID PRN (Reason: moderate pain )
Patient Comments:
give 1 tablet by mouth two times a day for moderate pain.
Referrals:
Linda Galvan MD [Family Provider]
Interventions
Interventions:
*Risk Screen - Suicide Last Done: 01/30/25 22:40
*General Assessment Last Done: 01/30/25 22:39
*Neglect/Abuse Screening Last Done: 01/30/25 22:39
*ED- Fall Risk Assessment Last Done: 01/30/25 22:37
*ED COVID-19 Vaccine History Last Done: 01/30/25 22:35
*ED Influenza Vaccine History Last Done: 01/30/25 22:35
ED- Cardiac Assessment Last Done: 01/30/25 22:37
ED- Neurological Assessment Last Done: 01/30/25 22:37
ED-Psychological Assessment Last Done: 01/30/25 22:38
ED- Pulmonary Assessment Last Done: 01/30/25 22:37
Discharge Date and Time
Print Language: MARTINIQUAIS
[2025-01-31 00:33] LABS: TSH 1.34 uIU/ml (0.47-4.68)
[2025-01-31] MEDS: NSS 500 IV (01:05)
--- NOTE | 2025-01-31 02:21 | HPS.HSE ---
Family Physician
-
Family Physician: Linda Galvan
Chief Complaint
-
Lethargy
History of Present Illness
Patient is a 59y M with PMH significant for ASCVD, hypertension and CKD who presents to ED for evaluation of lethargy. Patient was noted to be sleepy / lethargic at his nursing facility today. His vitals were checked and he was noted to be
bradycardia and hypotensive. BP was reportedly in the 70s at [facility]. He was sent to the ED for further evaluation. In the ED he was noted to have heart rates in the 40s and initial BP = 112/58. He received IVFs with improvement in his BP. Patient
denies any specific complaints other than feeling tired. He states that this only started today.
Review of [place] record shows new Rx for tramadol 100mg BID that started this AM. No other new medications / changes.
Medical History
Past Medical History
Past Medical History: Reports Other
Additional Past Medical History:
ASCVD (CAD, CVA, PAD)
Multidrug Resistant Hypertension
DM-II
CKD IIIB
CVA with Left Hemiparesis
Chronic Anemia
Depression
GERD
BPH
Past Surgical History: Reports Other
Additional Past Surgical History:
CABG
Other surgeries are unknown
Social History
Tobacco: Former Smoker
Alcohol: None
Drug: None
Living: Alf
Family History
Family History: Not pertinent
Allergies / Home Medications
Allergies reflects when Allergies were last updated in [facility].
Home Medications with original date entered in [facility]
Allergy/Medication List:
Allergies
Allergy/AdvReac Type Severity Reaction Status Date / Time
Iodinated Contrast Media Allergy Unknown Verified 01/30/25 22:37
shellfish derived Allergy Unknown Verified 01/30/25 22:37
Home Medications
acetaminophen 325 mg tablet 650 mg PO Q6HPRN PRN MILD pain/fever 12/29/24
aspirin 81 mg chewable tablet 81 mg PO DAILY Blood Clot Prevention/Tx 12/29/24
atorvastatin 40 mg tablet 40 mg PO HS High Cholesterol 12/29/24
bisacodyl 10 mg rectal suppository 10 mg NE DAILYPRN PRN no BM AFTR MOM 12/29/24
calcium acetate 667 mg tablet 667 mg PO MEALS Supplement 12/29/24
carvedilol 12.5 mg tablet 25 mg PO BID Blood Pressure 12/29/24
cholecalciferol (vitamin D3) 1,250 mcg (50,000 unit) capsule 1,250 mcg PO MO Supplement 12/29/24
clopidogrel 75 mg tablet 75 mg PO DAILY Blood Clot Prevention/Tx 12/29/24
hydralazine 100 mg tablet 100 mg PO TID Blood Pressure 12/29/24
insulin lispro 100 unit/mL subcutaneous pen 8 unit SC MEALS Diabetes 12/29/24
isosorbide dinitrate 30 mg tablet 30 mg PO DAILY Blood Pressure 12/29/24
levothyroxine 75 mcg tablet 75 mcg PO DAILY Thyroid 12/29/24
magnesium hydroxide 400 mg/5 mL oral suspension (Milk of Magnesia) 2,400 mg PO DAILYPRN PRN no bm BY 3RD DAY 12/29/24
nicotine 7 mg/24 hr daily transdermal patch 1 patch transdermal Q24H Smoking Cessation 12/29/24
nifedipine 60 mg tablet,extended release 24 hr 60 mg PO DAILY Blood Pressure 12/29/24
risperidone 1 mg tablet 1 mg PO BID Mental Health/Anxiety 12/29/24
sennosides 8.6 mg-docusate sodium 50 mg tablet 1 tab-cap PO HS Constipation 12/29/24
sodium phosphates 19 gram-7 gram/118 mL enema (Fleet Enema) 118 ml NE DAILYPRN PRN if suppository not affective 12/29/24
tamsulosin 0.4 mg capsule 0.4 mg PO HS Urinary Issue 12/29/24
trazodone 50 mg tablet 50 mg PO DAILYPRN PRN sleep 12/29/24
clonidine HCl 0.2 mg tablet 0.2 mg PO BID 01/08/25
fluoxetine 10 mg capsule (Prozac) 10 mg PO DAILY 01/08/25
hydroxyzine HCl 25 mg tablet 25 mg PO TID 01/08/25
insulin glargine 100 unit/mL (3 mL) subcutaneous pen (Lantus Solostar U-100 Insulin) 25 unit SC HS 01/08/25
sodium bicarbonate 650 mg tablet 1,300 mg PO BID 01/08/25
tramadol 100 mg tablet 100 mg PO BID PRN moderate pain 01/31/25
Review of Systems
-
History Source: Patient
A 12 point ROS was completed and negative except as noted: Yes
Constitutional: Reports Fatigue; Denies Fever or Chills
Respiratory: Denies Cough or Trouble Breathing
Cardiac: Denies Chest Pain or Palpitations
Abdomen/GI: Denies Abdominal Pain, Nausea, Vomiting or Diarrhea
: Denies Dysuria, Frequency or Flank Pain
Musculoskeletal: Denies Joint Pain or Edema
Neurological: Reports Weakness (chronic L sided weakness); Denies Dizzy or Headache
Physical Exam
Vital Signs
Vital Signs
Temp Pulse Resp BP Pulse Ox
97.5 F 43 11 114/57 94
01/30/25 22:30 01/31/25 02:00 01/31/25 00:15 01/31/25 02:00 01/31/25 02:00
Physical Exam
General: Other (59y M appears lethargic - but wakes and answers questions / follows commands.)
HEENT: Other (Dry MM. Neck supple.)
Respiratory: Clear; No Wheezes, Rales or Rhonchi
Cardiac: S1/S2 and Bradycardia; No Murmur
GI: Soft, Non Tender, Non Distended and Normal Bowel Sounds
Musculoskeletal: No Clubbing, No Cyanosis and No Edema
Neuro: AO x 3 and Other (L hemiparesis from prior CVA. No new findings.)
Laboratory Results
-
01/30/25 23:35
01/30/25 23:35
Laboratory Results
Total Bilirubin 0.2 mg/dl (0.2-1.3) 01/30/25 23:35
AST 26 U/L (17-59) 01/30/25 23:35
ALT 25 U/L (0-50) 01/30/25 23:35
Alkaline Phosphatase 73 U/L (38-126) 01/30/25 23:35
Troponin I 0.022 ng/ml 01/30/25 23:35
Impression/Plan
-
A/P: Patient is a 59y M with PMH significant for ASCVD, L hemiparesis s/p prior CVA and CKD IIIB who presents to ED for evaluation of lethargy, bradycardia and hypotension.
Lethargy
Bradycardia
Hypotension
- Admit for further evaluation and treatment.
- ? med effect from tramadol 100mg BID which was started this AM.
- No other new meds / changes per [place] [facility] and prior records.
- Monitor on telemetry overnight.
- IVF support.
- Hold usual BP medications acutely and resume as BP / HR improve.
- Avoid further tramadol / opioids.
- Follow orthostatic signs.
- PT / OT evaluations.
ANUP on CKD III
- SCr = 3.8 and has gradually increased since his initial visit here (2.9).
- ? some increase due to decreased perfusion, hypotension, etc.
- Holding BP meds acutely as noted above. Holding parameters to avoid hypotension.
- IVF overnight and follow for improvement in labs / lytes.
Left Hemiparesis as Late Effect of CVA
- Patient with some generalized / global weakness - but no new focal deficits.
- Continue ASA, Plavix, statin, etc.
Multidrug Resistant Hypertension
- Currently relatively hypotensive.
- Follow for changes overnight with holding meds, IVFs, etc.
- Resume usual med regimen gradually as BP improves.
DM-II
- Stable. Continue basal : bolus insulin regimen.
- Follow glucose and cover with SSI as needed.
- A1C last month was 9%.
Anemia of CKD
- Stable. Hgb is at / near known baseline.
- Follow H&H for any changes.
Major Depression
- Continue current psychotropic med regimen.
- Holding parameters to avoid excessive sedation.
DVT Prophylaxis: Subcut heparin
Code Status: Full
[2025-01-31] MEDS: LR 1000 IV ×2 (03:46→16:49)
[2025-01-31 05:19] LABS: Urine Character Clear (Clear)
[2025-01-31] MEDS: SYNTHROID 75 MCG PO (06:25)
[2025-01-31 06:35] LABS: Hematocrit 31.8 % (39.0-52.0); Hemoglobin 10.7 g/dL (13.0-18.0); Mean Corp Hgb Conc. 33.6 g/dL (33.0-37.0); Mean Corpuscular Volume 93.0 fL (80.0-94.0); Platelet Count 238 10^3/uL (130-400); Red Cell Dist. Width 12.8 % (11.5-14.5)
[2025-01-31 07:01] LABS: Blood Urea Nitrogen 46 mg/dl (9-20); Calcium 8.9 mg/dl (8.4-10.2); Carbon Dioxide 25 mmol/L (22-30); Chloride 106 mmol/L (98-107); Estimated Creatinine Clearance 22 ml/min; Glucose 154 mg/dl (70-99); Potassium 4.8 mmol/L (3.5-5.1); Sodium 137 mmol/L (135-145); eGFR 18.87
--- NOTE | 2025-01-31 07:46 | W.PN.HOSP.TC ---
Today's Communication/Plan
-
Please continue to monitor on telemetry
Continue IV fluids
Assessment / Plan
Assessment / Plan
Physical Exam
General: Not in acute distress
HEENT: Normocephalic
Respiratory: Clear to Auscultation Bilaterally
Cardiac: S1/S2 and Bradycardia
GI: Soft, Non Tender, Non Distended and Normal Bowel Sounds
Musculoskeletal: No Cyanosis and No Edema
Neuro: AAO x 3 and Other (L hemiparesis from prior CVA. No new findings.)
Assessment/Plan
59 y/o male with past medical history significant for ASCVD, hypertension and CKD who presented to [facility] ED for evaluation of lethargy. Patient was noted to be sleepy/lethargic at his nursing facility on 01/30/25. His vitals were checked and he was
noted to be bradycardic and hypotensive. Systolic Blood Pressure was reportedly in the 70s mmHg at [facility]. Patient was sent to the emergency department for further evaluation. In the ED, he was noted to have heart rates in the 40s bpm and
initial blood pressure = 112/58. He received intravenous fluids with improvement in his blood pressure. At the time of admission, patient denied any specific complaints other than feeling tired. Review of [facility] showed new prescription
for Tramadol 100 mg BID that started on 01/30/25 morning. There were no other new medications / changes.
Lethargy Secondary to Bradycardia and Hypotension
Bradycardia
Hypotension
- ? med effect from tramadol 100mg BID which was started this AM.
- No other new meds / changes per [place] [facility] and prior records.
- Monitor on telemetry
- IVF support.
- Hold usual BP medications acutely and resume as BP / HR improve.
- Suspected prerenal ANUP in setting of dehydration also playing a role since Cr improving as of 01/31/25 and blood pressure also improving
- Avoid further tramadol / opioids.
- Follow orthostatic signs.
- PT / OT evaluations.
ANUP on CKD IIIb
- SCr = 3.8-->3.6 and has gradually increased since his initial visit here (2.9).
- ? some increase due to decreased perfusion, hypotension, etc.
- Holding BP meds acutely as noted above. Holding parameters to avoid hypotension.
- IV fluids
ASCVD
Left Hemiparesis as Late Effect of CVA
- Patient with some generalized / global weakness - but no new focal deficits.
- Continue ASA, Plavix, statin, etc.
Multidrug Resistant Hypertension
- Relatively hypotension is improving significantly
- Follow for changes overnight with holding meds, IVFs, etc.
- Resume usual med regimen gradually as BP improves.
DM-II
- Stable. Continue basal : bolus insulin regimen -- except reduce home Lantus by half as not sure how reliable patient's oral intake is
- Follow glucose and cover with SSI as needed.
- A1C last month was 9%.
Anemia of CKD
- Stable. Hgb is at / near known baseline.
- Follow H&H for any changes.
Major Depression
- Continue current psychotropic med regimen.
- Holding parameters to avoid excessive sedation.
DVT Prophylaxis: Subcut heparin
Code Status: Full Code
This is a non-billable note.
Anticipated Discharge: 24 - 48 hours
Subjective/Interval History
-
Date of Service: January 31, 2025
Patient was seen and examined. He reported feeling okay and denied any new symptoms or complaints.
Objective Data
-
Labs:
Laboratory Results
01/30/25 01/31/25
23:35 06:22
WBC 7.5 7.6
Hgb 10.7 L 10.7 L
Hct 31.7 L 31.8 L
Plt Count 241 238
Sodium 138 137
Potassium 4.3 4.8
Chloride 103 106
Carbon Dioxide 28 25
BUN 45 H 46 H
Creatinine 3.8 H 3.6 H
Glucose 214 H 154 H
Calcium 9.2 8.9
Total Bilirubin 0.2
AST 26
ALT 25
Alkaline Phosphatase 73
Vital Signs:
Vital Signs
Temp Pulse Resp BP Pulse Ox
97.6 F 42 12 124/56 96
01/31/25 06:15 01/31/25 06:15 01/31/25 06:15 01/31/25 06:15 01/31/25 06:15
I&O
01/30/25 01/31/25 02/01/25
06:59 06:59 06:59
Output Total 1000 / 1000
Balance -1000 / -1000
[2025-01-31 08:10] LABS: Urine Squamous Cell 0-2 /LPF (Few)
[2025-01-31 08:16] LABS: Glucose - Point of Care 156 mg/dl (70-99)
[2025-01-31] MEDS: PROZAC 10 MG PO (08:31)
[2025-01-31] MEDS: SODIUM BICARBONATE 1300 MG PO ×2 (08:31→21:21)
[2025-01-31] MEDS: PLAVIX 75 MG PO (08:31)
[2025-01-31] MEDS: LOW STRENGTH ASPIRIN 81 MG PO (08:31)
[2025-01-31] MEDS: PHOSLO 667 MG PO ×2 (08:31→17:09)
[2025-01-31] MEDS: HEPARIN 5000 UNITS SC ×2 (08:32→21:21)
[2025-01-31] MEDS: RISPERDAL 1 MG PO (08:32)
[2025-01-31] MEDS: SORBITRATE 30 MG PO (08:32)
[2025-01-31] MEDS: NOVOLOG FLEXPEN-LOW RESISTANCE 1 UNITS SC (09:42)
[2025-01-31] MEDS: NOVOLOG FLEXPEN 8 UNITS SC ×2 (09:43→17:36)
--- NOTE | 2025-01-31 10:31 | EDCM ---
CM reviewed chart and met with pt bedside in ED. Pt resides at [facility] in LTC, he has been there about 3 weeks.
Needs assistance with ADLs and personal care, can ambulate with RW short distances but prefers to use wheelchair.
PCP: James Red
Pharmacy: [facility]
Anticipate return to [facility] when medically stable, CM will continue to follow.
[2025-01-31 13:12] LABS: Glucose - Point of Care 158 mg/dl (70-99)
[2025-01-31] MEDS: NOVOLOG FLEXPEN SC (14:18)
[2025-01-31] MEDS: PHOSLO PO (14:18)
[2025-01-31] MEDS: NOVOLOG FLEXPEN-LOW RESISTANCE SC ×2 (14:18→17:37)
[2025-01-31 16:54] LABS: Glucose - Point of Care 142 mg/dl (70-99)
[2025-01-31] MEDS: TYLENOL 650 MG PO (17:32)
[2025-01-31] MEDS: LIPITOR 40 MG PO (21:20)
[2025-01-31] MEDS: RISPERDAL PO ×2 (21:21→22:14)
[2025-01-31] MEDS: FLOMAX 0.4 MG PO (21:21)
[2025-01-31 22:14] LABS: Glucose - Point of Care 218 mg/dl (70-99)
[2025-01-31] MEDS: LANTUS 0.1 UNITS SC (22:14)
[2025-02-01] VITALS (9 sets, daily range): BP systolic 101–193; BP diastolic 48–85; PULSE 56–57; BMI 26.3
[2025-02-01] MEDS: SYNTHROID 75 MCG PO (05:31)
[2025-02-01] MEDS: LR 1000 IV ×2 (05:31→13:54)
[2025-02-01 08:34] LABS: Glucose - Point of Care 163 mg/dl (70-99)
[2025-02-01] MEDS: PROZAC 10 MG PO (08:50)
[2025-02-01] MEDS: PHOSLO 667 MG PO ×3 (08:50→18:12)
[2025-02-01] MEDS: HEPARIN 5000 UNITS SC ×2 (08:50→21:12)
[2025-02-01] MEDS: SORBITRATE 30 MG PO (08:50)
[2025-02-01] MEDS: PLAVIX 75 MG PO (08:50)
[2025-02-01] MEDS: SODIUM BICARBONATE 1300 MG PO ×2 (08:50→21:12)
[2025-02-01] MEDS: NOVOLOG FLEXPEN-LOW RESISTANCE 1 UNITS SC ×2 (08:51→18:12)
[2025-02-01] MEDS: LOW STRENGTH ASPIRIN 81 MG PO (08:51)
[2025-02-01] MEDS: RISPERDAL 1 MG PO ×2 (08:51→21:12)
[2025-02-01] MEDS: NOVOLOG FLEXPEN 8 UNITS SC ×3 (08:51→18:12)
[2025-02-01 10:10] LABS: Blood Urea Nitrogen 43 mg/dl (9-20); Calcium 8.7 mg/dl (8.4-10.2); Carbon Dioxide 26 mmol/L (22-30); Chloride 108 mmol/L (98-107); Estimated Creatinine Clearance 24 ml/min; Glucose 146 mg/dl (70-99); Potassium 4.7 mmol/L (3.5-5.1); Sodium 134 mmol/L (135-145); eGFR 20.95
--- NOTE | 2025-02-01 12:59 | WOUNDNOTE ---
LEFT HEEL DTI 1967, [id number]
--- NOTE | 2025-02-01 12:59 | WOUNDNOTE ---
RIGHT HEEL UNSTAGEABLE WOUND
[2025-02-01 13:03] LABS: Glucose - Point of Care 237 mg/dl (70-99)
[2025-02-01] MEDS: NOVOLOG FLEXPEN-LOW RESISTANCE 2 UNITS SC (13:04)
--- NOTE | 2025-02-01 13:12 | WOUNDNOTE ---
[facility] RN note: Patient admitted with lethargy from [facility]
See H&P for complete history.
PMH: ASCVD (CAD, CVA, PAD)
Multidrug Resistant Hypertension
DM-II
CKD IIIB
CVA with Left Hemiparesis
Chronic Anemia
Depression
GERD
BPH
Wound Location and type/assessment: Patient admitted with right heel unstageable PI and left heel DTI. Right heel unstageable is dry and no drainage or purulence noted. Left heel with small red ecchymotic area. See worklist fot additional details
and measurements. Patient reports pain in the right heel where unstageable wound is located. Faint pulses are audible by doppler. Dr. Myers TT with findings wound and doppler assessment. Sacrum intact and patient turns but needs encouragement.
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
Plan: Fiber filled boot ordered for offloading of bilateral heels. Static air overlay recommended for bed as patient exhibits poor mobility and has PI upon admission. Local wound care provided to both heels with no-sting barrier and silicone border
foam. Per Dr. Myers, will check SHANELLE. Will confirm orders with hospitalist and update nurse. Updated care plan and will follow as needed.
Note to case management of equipment requested for discharge:
Recommend follow up at wound care center upon discharge.
--- NOTE | 2025-02-01 13:13 | W.PN.HOSP.TC ---
Today's Communication/Plan
-
See plan
Assessment / Plan
Assessment / Plan
Physical Exam
General: Not in acute distress
HEENT: Normocephalic
Respiratory: Clear to Auscultation Bilaterally
Cardiac: S1/S2 and Bradycardia
GI: Soft, Non Tender, Non Distended and Normal Bowel Sounds
Musculoskeletal: No Cyanosis and No Edema
Neuro: AAO x 3 and Other (L hemiparesis from prior CVA. No new findings.)
Assessment/Plan
59 y/o male with past medical history significant for ASCVD, hypertension and CKD who presented to [facility] ED for evaluation of lethargy. Patient was noted to be sleepy/lethargic at his nursing facility on 01/30/25. His vitals were checked and he was
noted to be bradycardic and hypotensive. Systolic Blood Pressure was reportedly in the 70s mmHg at [facility]. Patient was sent to the emergency department for further evaluation. In the ED, he was noted to have heart rates in the 40s bpm and
initial blood pressure = 112/58. He received intravenous fluids with improvement in his blood pressure. At the time of admission, patient denied any specific complaints other than feeling tired. Review of [facility] records showed new prescription
for Tramadol 100 mg BID that started on 01/30/25 morning. There were no other new medications / changes.
Lethargy Secondary to Bradycardia and Hypotension
Bradycardia
Suspected Orthostatic Hypotension
- ? med effect from tramadol 100mg BID which was started this AM.
- No other new meds / changes per [place] [facility] and prior records.
- Monitor on telemetry
- IVF support -- patient still very orthostatic as of 02/01/25 -- continue IV fluids
- Hold usual BP medications acutely and resume as BP / HR improve.
- Suspected prerenal ANUP in setting of dehydration also playing a role since Cr improving as of 02/01/25 and blood pressure also improving
- Avoid further tramadol / opioids or AV parker blockers
- Follow orthostatic signs.
- PT / OT evaluations.
ANUP on CKD IIIb
- SCr = 3.8-->3.6-->3.3 and has gradually increased since his initial visit here (2.9).
- ? some increase due to decreased perfusion, hypotension, etc.
- Holding BP meds acutely as noted above. Holding parameters to avoid hypotension.
- IV fluids
ASCVD
Left Hemiparesis as Late Effect of CVA
- Patient with some generalized / global weakness - but no new focal deficits.
- Continue ASA, Plavix, statin, etc.
Multidrug Resistant Hypertension
- Relatively hypotension is improving significantly
- Follow for changes overnight with holding meds, IVFs, etc.
- Resume usual med regimen gradually as BP improves.
DM-II
- Stable. Continue basal : bolus insulin regimen -- except reduce home Lantus by about half as not sure how reliable patient's oral intake is
- Follow glucose and cover with SSI as needed.
- A1C last month was 9%.
Anemia of CKD
- Stable. Hgb is at / near known baseline.
- Follow H&H for any changes.
Major Depression
- Continue current psychotropic med regimen.
- Holding parameters to avoid excessive sedation.
Right heel unstageable
Left heel with small red ecchymotic area
-Patient reported pain in the right heel where unstageable wound is located
-Per wound care, faint pulses present
-Check SHANELLE either inpatient or outpatient
-Recommend follow up at wound care center upon discharge.
DVT Prophylaxis: Subcut heparin
Code Status: Full Code
Anticipated Discharge: 24 - 48 hours
Subjective/Interval History
-
Date of Service: February 01, 2025
Patient was seen and examined. He was still very orthostatic as per patient's nurse.
Objective Data
-
Labs:
Laboratory Results
02/01/25
09:35
Sodium 134 L
Potassium 4.7
Chloride 108 H
Carbon Dioxide 26
BUN 43 H
Creatinine 3.3 H
Glucose 146 H
Calcium 8.7
Vital Signs:
Vital Signs
Temp Pulse Resp BP Pulse Ox
97.7 F 57 18 127/59 98
02/01/25 11:22 02/01/25 11:22 02/01/25 11:22 02/01/25 11:22 02/01/25 11:22
I&O
01/31/25 02/01/25 02/02/25
06:59 06:59 06:59
Intake Total 1080 / 1080
Output Total 1000 / 1000 1700 / 1700 510 / 510
Balance -1000 / -1000 -620 / -620 -510 / -510
--- NOTE | 2025-02-01 14:05 | PN.CDI ---
CDI
- -
CDI:
Physician Documentation Request
Admit Date: 01/31/25 02:35
Dear Doctor Louis,
WOCN note states 'Patient admitted with right heel unstageable PI and left heel DTI, Right heel unstageable is dry and no drainage or purulence noted. Left heel with small red ecchymotic area'
Physician documentation of the type and location of wounds is required for compliant documentation. Based on the above clinical findings and your assessment, please provide the following in your progress note:
1. Location of the ulcer/wound, including laterality.
2. Type (etiology) of ulcer/wound:
- Diabetic ulcer
- Arterial (ischemic) ulcer
- Traumatic wound
- Venous stasis ulcer
- Pressure (decubitus) ulcer
- Other
Use of terms such as suspected, likely, concern for, or probable (associated with a specific diagnosis that is being evaluated, monitored, or treated as if it exists) are acceptable and can be coded in the inpatient setting, when documented at the
time of discharge.
Thank you,
Sariah Garcia RN, BSN
CDI Specialist
tiger text
Please use your independent medical judgment in providing your response.
*Source: National Pressure Ulcer Advisory Panel (NPUAP)
[2025-02-01 17:46] LABS: Glucose - Point of Care 155 mg/dl (70-99)
[2025-02-01 20:17] LABS: Glucose - Point of Care 191 mg/dl (70-99)
[2025-02-01] MEDS: LIPITOR 40 MG PO (21:12)
[2025-02-01] MEDS: FLOMAX 0.4 MG PO (21:12)
[2025-02-01] MEDS: LANTUS 0.1 UNITS SC (21:40)
[2025-02-02] MEDS: LR 1000 IV ×2 (02:59→12:52)
[2025-02-02 03:17] VITALS: BP 166/78
[2025-02-02] MEDS: SYNTHROID 75 MCG PO (05:05)
[2025-02-02 07:57] LABS: Glucose - Point of Care 107 mg/dl (70-99)
[2025-02-02] MEDS: SODIUM BICARBONATE 1300 MG PO (08:07)
[2025-02-02] MEDS: PROZAC 10 MG PO (08:07)
[2025-02-02] MEDS: PHOSLO 667 MG PO ×2 (08:07→12:52)
[2025-02-02] MEDS: SORBITRATE 30 MG PO (08:07)
[2025-02-02] MEDS: HEPARIN 5000 UNITS SC (08:07)
[2025-02-02] MEDS: RISPERDAL 1 MG PO (08:08)
[2025-02-02] MEDS: PLAVIX 75 MG PO (08:08)
[2025-02-02] MEDS: LOW STRENGTH ASPIRIN 81 MG PO (08:08)
[2025-02-02] MEDS: NOVOLOG FLEXPEN-LOW RESISTANCE SC (08:18)
--- NOTE | 2025-02-02 08:23 | W.PN.HOSP.TC ---
Addendum entered and electronically signed by Isidro Myers MD 02/05/25 10:16:
Suspected ANUP on CKD 3b was present and is a clinical diagnosis based on initial Cr 3.8 dropping to 3.0 (more than 0.3) later in the admission after intravenous fluids were given
Original Note:
Today's Communication/Plan
-
Discharge today
Assessment / Plan
Assessment / Plan
Physical Exam
General: Not in acute distress
HEENT: Normocephalic
Respiratory: Clear to Auscultation Bilaterally
Cardiac: S1/S2 and Bradycardia
GI: Soft, Non Tender, Non Distended and Normal Bowel Sounds
Musculoskeletal: No Cyanosis and No Edema
Neuro: AAO x 3 and Other (L hemiparesis from prior CVA. No new findings.)
Assessment/Plan
59 y/o male with past medical history significant for ASCVD, hypertension and CKD who presented to [facility] ED for evaluation of lethargy. Patient was noted to be sleepy/lethargic at his nursing facility on 01/30/25. His vitals were checked and he was
noted to be bradycardic and hypotensive. Systolic Blood Pressure was reportedly in the 70s mmHg at [facility]. Patient was sent to the emergency department for further evaluation. In the ED, he was noted to have heart rates in the 40s bpm and
initial blood pressure = 112/58. He received intravenous fluids with improvement in his blood pressure. At the time of admission, patient denied any specific complaints other than feeling tired. [facility] showed [facility]
for Tramadol 100 mg BID that started on 01/30/25 morning. There were no other new medications / changes.
Lethargy Secondary to Bradycardia and Hypotension
Bradycardia
Suspected Orthostatic Hypotension
- ? med effect from tramadol 100mg BID which was started this AM.
- No other new meds / changes per [place] [facility] and prior records.
- Monitor on telemetry
- IVF support -- patient still very orthostatic as of 02/01/25
- Hold usual BP medications acutely and resume as BP / HR improve.
- Suspected prerenal ANUP in setting of dehydration also playing a role since Cr improving as of 02/01/25 and blood pressure also improving
- Avoid further tramadol/opioids
- Avoid atrioventricular parker blockers
- Follow orthostatic signs.
- PT / OT evaluations.
QTc prolongation on electrocardiogram
- Stop Risperisone and Prozac
- Recheck EKG outpatient
- Monitor labs outpatient
- Recheck EKG outpatient
ANUP on CKD IIIb
- SCr = 3.8-->3.6-->3.3-->3.0 and has gradually increased since his initial visit here (2.9).
- ? some increase due to decreased perfusion, hypotension, etc.
- Holding BP meds acutely as noted above. Holding parameters to avoid hypotension.
- IV fluids
ASCVD
Left Hemiparesis as Late Effect of CVA
- Patient with some generalized / global weakness - but no new focal deficits.
- Continue ASA, Plavix, statin, etc.
Multidrug Resistant Hypertension
- Relative hypotension is improving significantly
- Resume usual med regimen gradually as BP improves.
DM-II
- Stable. Continue basal : bolus insulin regimen -- except reduce home Lantus by about half as not sure how reliable patient's oral intake is
- Follow glucose and cover with SSI as needed.
- A1C last month was 9%.
Anemia of CKD
- Stable. Hgb is at / near known baseline.
- Follow H&H for any changes.
Major Depression
- Continue current psychotropic med regimen.
- Holding parameters to avoid excessive sedation.
Right heel unstageable
Left heel with small red ecchymotic area
-Patient reported pain in the right heel where unstageable wound is located
-Per wound care, faint pulses present
-Check SHANELLE either inpatient or outpatient
-Recommend follow up at wound care center upon discharge.
DVT Prophylaxis: Subcut heparin
Code Status: Full Code
More than 30 minutes spent in discharge including
Final examination of the patient
Summarizing hospital stay
Instructions for continuing care to all relevant caregivers
Preparation of discharge records, prescriptions, and referral forms
Total time spent (in minutes): 41
Anticipated Discharge: Today
Subjective/Interval History
-
Date of Service: February 02, 2025
Patient was seen and examined. He denied any new symptoms or complaints.
Objective Data
-
Labs:
Laboratory Results
02/02/25
07:38
Sodium Pending
Potassium Pending
Chloride Pending
Carbon Dioxide Pending
BUN Pending
Creatinine Pending
Glucose Pending
Calcium Pending
Vital Signs:
Vital Signs
Temp Pulse Resp BP Pulse Ox
98.1 F 69 18 166/78 98
02/02/25 03:17 02/02/25 03:17 02/02/25 03:17 02/02/25 03:17 02/02/25 03:17
I&O
02/01/25 02/02/25 02/03/25
06:59 06:59 06:59
Intake Total 1080 / 1080 480 / 480
Output Total 1700 / 1700 2965 / 2965
Balance -620 / -620 -2485 / -2485
[2025-02-02 08:34] VITALS: BP 191/90
[2025-02-02 09:18] VITALS: BP 156/78
[2025-02-02 09:20] LABS: Blood Urea Nitrogen 36 mg/dl (9-20); Calcium 8.9 mg/dl (8.4-10.2); Carbon Dioxide 25 mmol/L (22-30); Chloride 109 mmol/L (98-107); Estimated Creatinine Clearance 26 ml/min; Glucose 114 mg/dl (70-99); Potassium 5.0 mmol/L (3.5-5.1); Sodium 140 mmol/L (135-145); eGFR 23.49
[2025-02-02] MEDS: NOVOLOG FLEXPEN 8 UNITS SC ×2 (10:02→12:51)
[2025-02-02 12:12] LABS: Glucose - Point of Care 188 mg/dl (70-99)
[2025-02-02] MEDS: NOVOLOG FLEXPEN-LOW RESISTANCE 1 UNITS SC (12:51)
[2025-02-02 13:00] VITALS: BP 197/75
[2025-02-02 13:01] VITALS: BP 177/69; BP 197/75; PULSE 97; PULSE 99
[2025-02-02] MEDS: APRESOLINE 100 MG PO (13:56)
--- NOTE | 2025-02-02 14:51 | W.DCSUMMARY ---
Addendum entered and electronically signed by Isidro Myers MD 02/04/25 07:43:
Correction to below: '.......therefore his home Hydralazine was resumed with good antihypertensive response prior to discharge.'
Original Note:
Discharge Summary
Discharge Data
Date of Admission: 01/31/25
Date of Discharge: 02/02/25
Total time spent discharging patient (in min): 41
-
Pending Results: No
Hospital Course
59 y/o male with past medical history significant for ASCVD, hypertension, insulin dependent diabetes mellitus, CHF, multidrug resistant hypertension, chronic kidney disease stage III-IV, hyperlipidemia and prior history of CVA with left
hemiparesis, who presented to the [facility] emergency room for evaluation of lethargy. Patient was noted to be sleepy/lethargic at his nursing facility on the day of presentation. His vital signs were checked and he was noted to be bradycardic and
hypotensive. SBP was reportedly in the 70s mmHg at his [facility]. In the ED, he was noted to have heart rates in the 40s bpm and initial BP = 112/58. Patient was also found to have significant orthostatic hypotension. He received intravenous
fluids with improvement in his blood pressure. [facility] record showed new prescription for tramadol 100mg BID that started on the morning of presentation. At the time of admission, patient's Tramadol, Clonidine, Hydralazine, Coreg and
Nifedipine were all held given his severe symptomatic hypotension and bradycardia. Patient had creatinine of 3.8, which improved to 2.9 with IV fluids. Patient's blood pressure gradually improved to normal and started becoming elevated, therefore
his home Hydralazine was resumed with good antihypertensive prior to discharge. On discharge, patient's Nifedipine was also continued, in addition to the hydralazine. Coreg and Clonidine were held due to persistent bradycardia and given that patient
had severe hypotension and bradycardia on presentation. Patient would need close monitoring of his blood pressure outpatient and titrating blood pressure meds as appropriate.
Discharge Plan
-
Patient Disposition: Assisted/SNF
Discharge Diagnosis/Procedures: Lethargy Secondary to Bradycardia and Hypotension
Bradycardia
Suspected Orthostatic Hypotension
QTc prolongation on electrocardiogram
ANUP on CKD IIIb
ASCVD
Left Hemiparesis as Late Effect of CVA
Multidrug Resistant Hypertension
Type 2 Diabetes Mellitus
Anemia of CKD
Major Depression
Right heel unstageable
Left heel with small red ecchymotic area
Condition: Fair
Diet: Low Sodium
Blood Work: Check CBC, BMP and Magnesium in 2 to 3 days
Activity Restrictions/Additional Instructions:
Patient needs arterial brachial index checked in both of his lower extremities within 1 week, as he was found to have faint pulses in his feet with right heel wound.
Patient should follow-up at [facility] wound care center upon discharge.
Avoid atrioventricular parker janneth type of medications and also avoid clonidine, since patient came in with hypotension and bradycardia.
Avoid tramadol/opioids.
Risperidone and Prozac have been stopped given that patient was found to have QTc prolongation (QTc was 506 ms) on EKG in the hospital. Patient's electrocardiogram needs to be checked again as outpatient in 3 to 4 days.
Patient's serum potassium needs to be kept at 4 mmol/L and serum magnesium needs to be kept at 2.0 mg/dL.
Wound Care Instructions Right Heel- No-sting barrier wipe to dried eschar on right heel daily. May cover with silicone border foam and change foam Q 48 hours.
Left Heel- No sting barrier wipe to DTI of left heel. May cover with silicone border foam and change foam Q 48 hours.
Air overlay
Turning schedule
Fiber filled boots
Referrals:
Linda Galvan MD [Family Provider]
Additional Discharge Medication Instructions: Risperidone and Prozac have been stopped given that patient was found to have QTc prolongation on EKG in the hospital.
Prescriptions:
Continued
atorvastatin 40 mg Tablet
40 mg PO HS
acetaminophen 325 mg Tablet
650 mg PO Q6HPRN PRN (Reason: MILD pain/fever)
sennosides-docusate sodium 8.6-50 mg Tablet
1 tab-cap PO HS
clopidogrel 75 mg Tablet
75 mg PO DAILY
levothyroxine 75 mcg Tablet
75 mcg PO DAILY
isosorbide dinitrate 30 mg Tablet
30 mg PO DAILY
nifedipine 60 mg Tablet Extended Release 24hr
60 mg PO DAILY
tamsulosin 0.4 mg Capsule
0.4 mg PO HS
bisacodyl 10 mg Suppository
10 mg NV DAILYPRN PRN (Reason: no BM AFTR MOM)
hydralazine 100 mg Tablet
100 mg PO TID
Fleet Enema 19-7 gram/118 mL Enema
118 ml NV DAILYPRN PRN (Reason: if suppository not affective)
aspirin 81 mg Tablet,Chewable
81 mg PO DAILY
nicotine 7 mg/24 hr Patch 24 Hour
1 patch TRANSDERMAL Q24H
insulin lispro 100 unit/mL Insulin Pen
8 unit SC MEALS
cholecalciferol (vitamin D3) 1,250 mcg (50,000 unit) Capsule
1,250 mcg PO MO
calcium acetate 667 mg Tablet
667 mg PO AC
sodium bicarbonate 650 mg Tablet
1,300 mg PO BID
Changed
insulin glargine [Lantus Solostar U-100 Insulin] 100 unit/mL (3 mL) Insulin Pen
10 unit SC HS Qty: 0 0RF
Discontinued
carvedilol 12.5 mg Tablet
25 mg PO BID
trazodone 50 mg Tablet
50 mg PO DAILYPRN PRN (Reason: sleep)
magnesium hydroxide [Milk of Magnesia] 400 mg/5 mL Suspension
2,400 mg PO DAILYPRN PRN (Reason: no bm BY 3RD DAY)
risperidone 1 mg Tablet
1 mg PO BID
clonidine HCl 0.2 mg Tablet
0.2 mg PO BID
fluoxetine [Prozac] 10 mg Capsule
10 mg PO DAILY
hydroxyzine HCl 25 mg Tablet
25 mg PO TID
tramadol 100 mg Tablet
100 mg PO BID PRN (Reason: moderate pain )
Patient Comments:
give 1 tablet by mouth two times a day for moderate pain.
No Action
magnesium hydroxide [Milk of Magnesia] 400 mg/5 mL Suspension
30 ml PO [id number] PRN (Reason: constipation)
Discharge Orders:
Discharge Patient (As Directed); Ordered 02/02/25
Ordered By: Isidro Myers
Discharge Date and Time
Discharge Date/Time: 02/02/25 16:50
Print Language: PRYDEINIG
--- NOTE | 2025-02-02 15:21 | CM ---
Patient has been medically cleared to return to [facility] for resumption of LTC. Therapy recommendation for skilled services. DARRYL RN included in report. Transport scheduled for 4:30PM.
Nurse to Nurse Report #: [phone]
Fax#: [phone]
[2025-02-02 15:35] VITALS: BP 172/64
--- NOTE | 2025-02-04 10:22 | PN.CDI ---
CDI
- -
CDI:
Physician Documentation Request
Admit Date: 01/31/25 02:35
Dear Doctor Louis,
Patient presented with lethargy secondary to suspected orthostatic hypotension and bradycardia.
Progress notes include a diagnosis of ANUP.
'ANUP on CKD IIIb - SCr = 3.8-->3.6-->3.3-->3.0 and has gradually increased since his initial visit here (2.9)'
Criteria for ANUP*
1 Increase in serum creatinine by > or = to 0.3 mg/dL (> or = to 26.5 micromol/L) within 48 hours, OR
2 Increase in serum creatinine to > or = to 1.5 times baseline, which is known or presumed to have occurred within 7 days, OR
3 Urine volume < 0.5 nL/kg/hour for six hours
Based on the above information and the recognized standard for ANUP could you please verify this diagnoses is still accurate and reflective of the patient�s condition to ensure quality of the medical record.
Please clarify in the Progress Notes:
�ANUP is/was present and is a clinical diagnosis based on (please include this additional support in the medical record)
�After study ANUP has been ruled out
�Other
Use of terms such as suspected, likely, concern for, or probable (associated with a specific diagnosis that is being evaluated, monitored, or treated as if it exists) are acceptable and can be coded in the inpatient setting, when documented at the
time of discharge.
Thank you,
Sariah Garcia RN, BSN
CDI Specialist
tiger text
Please use your independent medical judgment in providing your response.
== END 2025-02-02 16:50 | DRG 312 ==
LOC: 3 WEST ACU 02:35
PROVIDERS: Physician Assistant; ADMITTING PHYSICIAN Hospitalist; ATTENDING PHYSICIAN Hospitalist; EMERGENCY PHYSICIAN Emergency Medicine; FAMILY PHYSICIAN Internal Medicine
DX: I95.1 Orthostatic hypotension (principal); I13.0 Hypertensive heart and chronic kidney disease with heart failure and stage 1 through stage 4 chronic kidney disease, or unspecified chronic kidney disease; N17.9 Acute kidney failure, unspecified; I69.354 Hemiplegia and hemiparesis following cerebral infarction affecting left non-dominant side; R00.1 Bradycardia, unspecified; E86.0 Dehydration; N18.32 Chronic kidney disease, stage 3b; I25.10 Atherosclerotic heart disease of native coronary artery without angina pectoris; D63.1 Anemia in chronic kidney disease; F32.9 Major depressive disorder, single episode, unspecified; K21.9 Gastro-esophageal reflux disease without esophagitis; N40.0 Benign prostatic hyperplasia without lower urinary tract symptoms; I1A.0 Resistant hypertension; E78.5 Hyperlipidemia, unspecified; E11.22 Type 2 diabetes mellitus with diabetic chronic kidney disease; I50.9 Heart failure, unspecified; S91.302A Unspecified open wound, left foot, initial encounter; X58.XXXA Exposure to other specified factors, initial encounter; Z95.1 Presence of aortocoronary bypass graft; Z87.891 Personal history of nicotine dependence; Z91.041 Radiographic dye allergy status; Z79.4 Long term (current) use of insulin
CPT/HCPCS: 80048; 80053; 81003; 81015; 82962; 83735; 84443; 84484; 85025; 85027; 93005; 97167

== ENCOUNTER 2025-02-03 15:57 | Inpatient (IN) | payer MEDICAID, SELFPAY ==
[2025-02-03] VITALS (32 sets, daily range): BP systolic 129–242; BP diastolic 60–205; BMI 27.9
[2025-02-03 05:30] LABS: Hematocrit 34.2 % (39.0-52.0); Hemoglobin 11.6 g/dL (13.0-18.0); Mean Corp Hgb Conc. 33.9 g/dL (33.0-37.0); Mean Corpuscular Volume 91.0 fL (80.0-94.0); Nucleated Red Blood Cells % 0 % (-); Platelet Count 273 10^3/uL (130-400); Red Cell Dist. Width 13.0 % (11.5-14.5)
[2025-02-03 06:10] LABS: ALT (SGPT) 22 U/L (0-50); AST (SGOT) 19 U/L (17-59); Albumin 3.2 g/dl (3.5-5.0); Alkaline Phosphatase 76 U/L (38-126); Blood Urea Nitrogen 34 mg/dl (9-20); Calcium 8.9 mg/dl (8.4-10.2); Carbon Dioxide 25 mmol/L (22-30); Chloride 111 mmol/L (98-107); Estimated Creatinine Clearance 26 ml/min; Glucose 109 mg/dl (70-99); Potassium 5.0 mmol/L (3.5-5.1); Sodium 140 mmol/L (135-145); Total Protein 6.0 g/dl (6.3-8.2); eGFR 23.34
--- NOTE | 2025-02-03 07:25 | EDRN ---
EKG ordered was not performed, EKG being performed now
--- NOTE | 2025-02-03 08:04 | ED.GENMED ---
Addendum entered and electronically signed by Ed Salgado DO 02/03/25 14:51:
I reviewed and agree with history treatment plan by Mayo Vuong PA-C. My exam revealed
Physical Exam
General: Hypertensive
Neck: supple. no meningeal signs. normal posterior pharynx
Heart: s1/s2 regular rate and rhythm, no murmur. equal radial
pulses.
HEENT: Pupils equal round reactive to light, EOMI
Lungs: no acute respiratory distress. clear bilaterally
Abdomen: normal bowel sounds. not tender. no CVAT
Neuro: alert and oriented. no focal neurological deficits cranial nerves II through XII intact
Skin: no rash
Psychiatric: well kept. interactive and cooperative
Extremities: no edema. no calf tenderness. negative homans. good distal pulses
60-year-old male with continued hypertensive urgency. Will admit patient for labile hypertension. Chronic renal failure.
Addendum entered and electronically signed by Ramiro Vuong PA-C 02/03/25 14:47:
Reassessment of patient. Blood pressure remains elevated. Family in room with concern that his management of blood pressure is not well controlled at the facility. Given the slightly elevated troponins in the setting of persistently elevated
blood pressure which is now 230s over 80s will keep in hospital for hypertensive urgency.
Original Note:
History of Present Illness
General
Chief Complaint: Blood Pressure Problem
Source: patient
Exam Limitations: none
Time Seen by Provider: 02/03/25 07:59
History of Present Illness
History of Present Illness:
60-year-old male with history of stroke, CHF, chronic renal failure, insulin-dependent diabetes presents from nursing facility with elevated blood pressure readings. Patient did complain that he had chest pain 2 days ago but currently does not have
chest pain. He denies headache. No other complaints at this time
Phy Exam
Physical Exam
Physical Exam:
General: Chronically ill-appearing male in no acute respiratory distress
HEENT normal cephalic atraumatic
Heart: Regular rate and rhythm
Lungs: Clear no wheeze
Abdomen is soft nontender
Neurologic exam: Alert responsive verbal stimuli answering questions appropriately
Course
Orders/Labs/Results
Orders:
Orders
02/03/25 05:06
Electrocardiogram (*1) Urgent
Reason for Study: Other
Other Reason for Exam: hypertension
EKG- Treatment ONCE
02/03/25 05:16
CMP [Comprehensive Metabolic Panel] Urgent
Complete Blood Count/With Diff Urgent
02/03/25 08:29
Troponin I Urgent
02/03/25 11:55
Troponin I Urgent
02/03/25 12:38
HydrALAZINE [Apresoline] 100 mg PO NOW STA
Abnormal Lab Results
02/03/25 02/03/25 02/03/25
05:16 08:29 11:55
RBC 3.76 L 10^6/uL
(4.70-6.10)
Hgb 11.6 L g/dL
(13.0-18.0)
Hct 34.2 L %
(39.0-52.0)
Absolute Monos (auto) 0.9 H 10^3/uL
(0.1-0.6)
Absolute Eos (auto) 1.2 H 10^3/uL
(0-0.7)
Monocytes % 11.0 H %
(1.7-9.3)
Eosinophils % 15.2 H %
(0-6)
Chloride 111 H mmol/L
(98-107)
BUN 34 H mg/dl
(9-20)
Creatinine 3.0 H mg/dL
(0.7-1.3)
Glucose 109 H mg/dl
(70-99)
Troponin I 0.052 H* ng/ml 0.048 H* ng/ml
Total Protein 6.0 L g/dl
(6.3-8.2)
Albumin 3.2 L g/dl
(3.5-5.0)
02/03/25 05:16
02/03/25 05:16
Vital Signs
Initial and Last Documented VS:
Initial Vital Signs
Pulse Resp
64 18
02/03/25 05:04 02/03/25 05:04
Last Documented Vital Signs
Temp Pulse Resp BP Pulse Ox
98.6 F 74 13 213/84 99
02/03/25 13:22 02/03/25 13:49 02/03/25 13:49 02/03/25 13:55 02/03/25 13:22
MDM/Problems Addressed
Differential Diagnosis Includes:
Patient sent here for elevated blood pressure readings most recent blood pressure check in the room was 155/64. He currently has no complaints but did have chest pain 2 days ago. EKG shows sinus bradycardia here will add a troponin. Continue to
monitor blood pressure.
*Pulse Oximetry
SaO2: 100
Oxygen Mode of Delivery: Room air
Patient hypoxic: no
*Critical Care Note
Total Time (30-74mins, 75-104mins- exclusive of procedures): Not Applicable
Update Note
Update Note:
Patient given his hydralazine as he was due for initial troponin slightly elevated patient does not have any chest pain. 3 hours later repeat troponin was improved. Still with no chest pain. No indication for admission at this point. Recommended
continued blood pressure management. Stable for discharge back to facility
ED Attending Note
-
Portions of this chart may have been created with voice recognition software.� Occasional wrong word or��sound alike� substitutions may have occurred due to the inherent limitations of voice recognition software.
Discharge Plan
Departure
Patient Disposition: Home (Routine Discharge)
Date of Disposition: 02/03/25
Time of Disposition: 14:10
Patient with high blood pressure during this ER visit?: No
Discharge Problem:
Elevated blood pressure reading
Prescriptions:
No Action
atorvastatin 40 mg Tablet
40 mg PO HS
acetaminophen 325 mg Tablet
650 mg PO Q6HPRN PRN (Reason: MILD pain/fever)
sennosides-docusate sodium 8.6-50 mg Tablet
1 tab-cap PO HS
clopidogrel 75 mg Tablet
75 mg PO DAILY
levothyroxine 75 mcg Tablet
75 mcg PO DAILY
isosorbide dinitrate 30 mg Tablet
30 mg PO DAILY
nifedipine 60 mg Tablet Extended Release 24hr
60 mg PO DAILY
tamsulosin 0.4 mg Capsule
0.4 mg PO HS
bisacodyl 10 mg Suppository
10 mg DC DAILYPRN PRN (Reason: no BM AFTR MOM)
hydralazine 100 mg Tablet
100 mg PO TID
Fleet Enema 19-7 gram/118 mL Enema
118 ml DC DAILYPRN PRN (Reason: if suppository not affective)
aspirin 81 mg Tablet,Chewable
81 mg PO DAILY
nicotine 7 mg/24 hr Patch 24 Hour
1 patch TRANSDERMAL Q24H
insulin lispro 100 unit/mL Insulin Pen
8 unit SC MEALS
cholecalciferol (vitamin D3) 1,250 mcg (50,000 unit) Capsule
1,250 mcg PO MO
calcium acetate 667 mg Tablet
667 mg PO AC
sodium bicarbonate 650 mg Tablet
1,300 mg PO BID
insulin glargine [Lantus Solostar U-100 Insulin] 100 unit/mL (3 mL) Insulin Pen
10 unit SC HS Qty: 0 0RF
magnesium hydroxide [Milk of Magnesia] 400 mg/5 mL Suspension
30 ml PO [id number] PRN (Reason: constipation)
Referrals:
Linda Galvan MD [Family Provider]
Activity Restrictions/Additional Instructions:
Continue current blood pressure regimen. Return if worse otherwise
Interventions
Interventions:
*Risk Screen - Suicide Last Done: 02/03/25 05:06
*General Assessment Last Done: 02/03/25 05:06
*Neglect/Abuse Screening Last Done: 02/03/25 05:06
*ED- Fall Risk Assessment Last Done: 02/03/25 05:09
*ED COVID-19 Vaccine History Last Done: 02/03/25 05:09
*ED Influenza Vaccine History Last Done: 02/03/25 05:09
ED- Cardiac Assessment Last Done: 02/03/25 05:13
ED- Neurological Assessment Last Done: 02/03/25 05:09
ED- Pulmonary Assessment Last Done: 02/03/25 05:13
Discharge Date and Time
Print Language: SAUDI ARABIAN
[2025-02-03 09:06] LABS: Troponin I 0.052 ng/ml
--- NOTE | 2025-02-03 12:03 | EDRN ---
provider Mayo [place] notified of hypertension
[2025-02-03 12:39] LABS: Troponin I 0.048 ng/ml
[2025-02-03] MEDS: APRESOLINE 100 MG PO ×2 (13:21→20:35)
--- NOTE | 2025-02-03 14:37 | EDRN ---
the pts family is at the pts bedside and requested to speak to the provider, this RN notified Mayo Vuong, the pt is currently still hypertensive
--- NOTE | 2025-02-03 14:43 | ED.GENMED ---
History of Present Illness
General
Chief Complaint: Blood Pressure Problem
Source: patient
Exam Limitations: none
Time Seen by Provider: 02/03/25 07:59
History of Present Illness
History of Present Illness:
60-year-old male from [facility] with complaints of elevated blood pressure reading at the facility. He states 2 days ago he had chest discomfort. His blood pressure remains elevated and I sent him here. Currently he does not
have chest pain. He denies shortness of breath. No other complaints at this time
Phy Exam
Physical Exam
Physical Exam:
General: Well-appearing male no acute respiratory distress
Course
Orders/Labs/Results
Orders:
Orders
02/03/25 05:06
Electrocardiogram (*1) Urgent
Reason for Study: Other
Other Reason for Exam: hypertension
EKG- Treatment ONCE
02/03/25 05:16
CMP [Comprehensive Metabolic Panel] Urgent
Complete Blood Count/With Diff Urgent
02/03/25 08:29
Troponin I Urgent
02/03/25 11:55
Troponin I Urgent
02/03/25 12:38
HydrALAZINE [Apresoline] 100 mg PO NOW STA
Abnormal Lab Results
02/03/25 02/03/25 02/03/25
05:16 08:29 11:55
RBC 3.76 L 10^6/uL
(4.70-6.10)
Hgb 11.6 L g/dL
(13.0-18.0)
Hct 34.2 L %
(39.0-52.0)
Absolute Monos (auto) 0.9 H 10^3/uL
(0.1-0.6)
Absolute Eos (auto) 1.2 H 10^3/uL
(0-0.7)
Monocytes % 11.0 H %
(1.7-9.3)
Eosinophils % 15.2 H %
(0-6)
Chloride 111 H mmol/L
(98-107)
BUN 34 H mg/dl
(9-20)
Creatinine 3.0 H mg/dL
(0.7-1.3)
Glucose 109 H mg/dl
(70-99)
Troponin I 0.052 H* ng/ml 0.048 H* ng/ml
Total Protein 6.0 L g/dl
(6.3-8.2)
Albumin 3.2 L g/dl
(3.5-5.0)
02/03/25 05:16
02/03/25 05:16
Vital Signs
Initial and Last Documented VS:
Initial Vital Signs
Pulse Resp
64 18
02/03/25 05:04 02/03/25 05:04
Last Documented Vital Signs
Temp Pulse Resp BP Pulse Ox
98.6 F 74 13 230/88 99
02/03/25 13:22 02/03/25 13:49 02/03/25 13:49 02/03/25 14:37 02/03/25 13:22
*Pulse Oximetry
SaO2: 99
Oxygen Mode of Delivery: Room air
ED Attending Note
-
Portions of this chart may have been created with voice recognition software.� Occasional wrong word or��sound alike� substitutions may have occurred due to the inherent limitations of voice recognition software.
Discharge Plan
Departure
Patient Disposition: Admit
Date of Disposition: 02/03/25
Time of Disposition: 14:10
Presentation/result/management discussed w/ accepting MD/DO: Hospitalist
Patient with high blood pressure during this ER visit?: No
Discharge Problem:
Elevated blood pressure reading, Hypertensive urgency
Prescriptions:
No Action
atorvastatin 40 mg Tablet
40 mg PO HS
acetaminophen 325 mg Tablet
650 mg PO Q6HPRN PRN (Reason: MILD pain/fever)
sennosides-docusate sodium 8.6-50 mg Tablet
1 tab-cap PO HS
clopidogrel 75 mg Tablet
75 mg PO DAILY
levothyroxine 75 mcg Tablet
75 mcg PO DAILY
isosorbide dinitrate 30 mg Tablet
30 mg PO DAILY
nifedipine 60 mg Tablet Extended Release 24hr
60 mg PO DAILY
tamsulosin 0.4 mg Capsule
0.4 mg PO HS
bisacodyl 10 mg Suppository
10 mg HI DAILYPRN PRN (Reason: no BM AFTR MOM)
hydralazine 100 mg Tablet
100 mg PO TID
Fleet Enema 19-7 gram/118 mL Enema
118 ml HI DAILYPRN PRN (Reason: if suppository not affective)
aspirin 81 mg Tablet,Chewable
81 mg PO DAILY
nicotine 7 mg/24 hr Patch 24 Hour
1 patch TRANSDERMAL Q24H
insulin lispro 100 unit/mL Insulin Pen
8 unit SC MEALS
cholecalciferol (vitamin D3) 1,250 mcg (50,000 unit) Capsule
1,250 mcg PO MO
calcium acetate 667 mg Tablet
667 mg PO AC
sodium bicarbonate 650 mg Tablet
1,300 mg PO BID
insulin glargine [Lantus Solostar U-100 Insulin] 100 unit/mL (3 mL) Insulin Pen
10 unit SC HS Qty: 0 0RF
magnesium hydroxide [Milk of Magnesia] 400 mg/5 mL Suspension
30 ml PO [id number] PRN (Reason: constipation)
Referrals:
Linda Galvan MD [Family Provider]
Activity Restrictions/Additional Instructions:
Continue current blood pressure regimen. Return if worse otherwise
Interventions
Interventions:
*Risk Screen - Suicide Last Done: 02/03/25 05:06
*General Assessment Last Done: 02/03/25 05:06
*Neglect/Abuse Screening Last Done: 02/03/25 05:06
*ED- Fall Risk Assessment Last Done: 02/03/25 05:09
*ED COVID-19 Vaccine History Last Done: 02/03/25 05:09
*ED Influenza Vaccine History Last Done: 02/03/25 05:09
ED- Cardiac Assessment Last Done: 02/03/25 05:13
ED- Neurological Assessment Last Done: 02/03/25 05:09
ED- Pulmonary Assessment Last Done: 02/03/25 05:13
Discharge Date and Time
Print Language: KIS[place]HIL[place]
--- NOTE | 2025-02-03 14:46 | ED.GENMED ---
History of Present Illness
General
Chief Complaint: Blood Pressure Problem
Time Seen by Provider: 02/03/25 07:59
Course
Orders/Labs/Results
Orders:
Orders
02/03/25 05:06
Electrocardiogram (*1) Urgent
Reason for Study: Other
Other Reason for Exam: hypertension
EKG- Treatment ONCE
02/03/25 05:16
CMP [Comprehensive Metabolic Panel] Urgent
Complete Blood Count/With Diff Urgent
02/03/25 08:29
Troponin I Urgent
02/03/25 11:55
Troponin I Urgent
02/03/25 12:38
HydrALAZINE [Apresoline] 100 mg PO NOW STA
Abnormal Lab Results
02/03/25 02/03/25 02/03/25
05:16 08:29 11:55
RBC 3.76 L 10^6/uL
(4.70-6.10)
Hgb 11.6 L g/dL
(13.0-18.0)
Hct 34.2 L %
(39.0-52.0)
Absolute Monos (auto) 0.9 H 10^3/uL
(0.1-0.6)
Absolute Eos (auto) 1.2 H 10^3/uL
(0-0.7)
Monocytes % 11.0 H %
(1.7-9.3)
Eosinophils % 15.2 H %
(0-6)
Chloride 111 H mmol/L
(98-107)
BUN 34 H mg/dl
(9-20)
Creatinine 3.0 H mg/dL
(0.7-1.3)
Glucose 109 H mg/dl
(70-99)
Troponin I 0.052 H* ng/ml 0.048 H* ng/ml
Total Protein 6.0 L g/dl
(6.3-8.2)
Albumin 3.2 L g/dl
(3.5-5.0)
02/03/25 05:16
02/03/25 05:16
Vital Signs
Initial and Last Documented VS:
Initial Vital Signs
Pulse Resp
64 18
02/03/25 05:04 02/03/25 05:04
Last Documented Vital Signs
Temp Pulse Resp BP Pulse Ox
98.6 F 74 13 230/88 99
02/03/25 13:22 02/03/25 13:49 02/03/25 13:49 02/03/25 14:37 02/03/25 13:22
*Pulse Oximetry
SaO2: 99
Oxygen Mode of Delivery: Room air
ED Attending Note
ED Attending Note
Patient seen and examined by attending physician: Yes
ED Attending Note:
I reviewed and agree with history treatment plan by Mayo Vuong PA-C. My exam revealed
Physical Exam
General: Hypertensive
Neck: supple. no meningeal signs. normal posterior pharynx
Heart: s1/s2 regular rate and rhythm, no murmur. equal radial
pulses.
HEENT: Pupils equal round reactive to light, EOMI
Lungs: no acute respiratory distress. clear bilaterally
Abdomen: normal bowel sounds. not tender. no CVAT
Neuro: alert and oriented. no focal neurological deficits cranial nerves II through XII intact
Skin: no rash
Psychiatric: well kept. interactive and cooperative
Extremities: no edema. no calf tenderness. negative homans. good distal pulses
60-year-old male with continued hypertensive urgency. Will admit patient for labile hypertension. Chronic renal failure.
-
Portions of this chart may have been created with voice recognition software.� Occasional wrong word or��sound alike� substitutions may have occurred due to the inherent limitations of voice recognition software.
Discharge Plan
Departure
Patient Disposition: Admit
Date of Disposition: 02/03/25
Time of Disposition: 14:10
Presentation/result/management discussed w/ accepting MD/DO: Hospitalist
Patient with high blood pressure during this ER visit?: No
Discharge Problem:
Elevated blood pressure reading, Hypertensive urgency
Prescriptions:
No Action
atorvastatin 40 mg Tablet
40 mg PO HS
acetaminophen 325 mg Tablet
650 mg PO Q6HPRN PRN (Reason: MILD pain/fever)
sennosides-docusate sodium 8.6-50 mg Tablet
1 tab-cap PO HS
clopidogrel 75 mg Tablet
75 mg PO DAILY
levothyroxine 75 mcg Tablet
75 mcg PO DAILY
isosorbide dinitrate 30 mg Tablet
30 mg PO DAILY
nifedipine 60 mg Tablet Extended Release 24hr
60 mg PO DAILY
tamsulosin 0.4 mg Capsule
0.4 mg PO HS
bisacodyl 10 mg Suppository
10 mg LA DAILYPRN PRN (Reason: no BM AFTR MOM)
hydralazine 100 mg Tablet
100 mg PO TID
Fleet Enema 19-7 gram/118 mL Enema
118 ml LA DAILYPRN PRN (Reason: if suppository not affective)
aspirin 81 mg Tablet,Chewable
81 mg PO DAILY
nicotine 7 mg/24 hr Patch 24 Hour
1 patch TRANSDERMAL Q24H
insulin lispro 100 unit/mL Insulin Pen
8 unit SC MEALS
cholecalciferol (vitamin D3) 1,250 mcg (50,000 unit) Capsule
1,250 mcg PO MO
calcium acetate 667 mg Tablet
667 mg PO AC
sodium bicarbonate 650 mg Tablet
1,300 mg PO BID
insulin glargine [Lantus Solostar U-100 Insulin] 100 unit/mL (3 mL) Insulin Pen
10 unit SC HS Qty: 0 0RF
magnesium hydroxide [Milk of Magnesia] 400 mg/5 mL Suspension
30 ml PO [id number] PRN (Reason: constipation)
Referrals:
Linda Galvan MD [Family Provider]
Activity Restrictions/Additional Instructions:
Continue current blood pressure regimen. Return if worse otherwise
Interventions
Interventions:
*Risk Screen - Suicide Last Done: 02/03/25 05:06
*General Assessment Last Done: 02/03/25 05:06
*Neglect/Abuse Screening Last Done: 02/03/25 05:06
*ED- Fall Risk Assessment Last Done: 02/03/25 05:09
*ED COVID-19 Vaccine History Last Done: 02/03/25 05:09
*ED Influenza Vaccine History Last Done: 02/03/25 05:09
ED- Cardiac Assessment Last Done: 02/03/25 05:13
ED- Neurological Assessment Last Done: 02/03/25 05:09
ED- Pulmonary Assessment Last Done: 02/03/25 05:13
Discharge Date and Time
Print Language: MALAYSIAN
[2025-02-03] MEDS: APRESOLINE 10 MG IV (14:57)
--- NOTE | 2025-02-03 15:08 | HPS.HSE ---
Family Physician
-
Family Physician: Linda Galvan
Chief Complaint
-
htn
History of Present Illness
60-year-old male from [facility] with asymptomatic hypertension. He reportedly returned to [facility] yesterday from the hospital however blood pressure medications were not resumed given hypertension that developed. Patient denies
headache, blurred vision, fever, chills, chest pain, palpitations, cough, shortness breath, abdominal pain, nausea, vomiting, diarrhea. He is complaining of urinary retention that required straight cath 4 times yesterday 02/02/2025. His sisters at
bedside state he has on and off urinary retention due to prior urethral meatus tear.
He had a recent admission due to ANUP, hypotension with BP in the 70s and bradycardia heart rate in the 40s. He received IV fluids all BP meds were held and to be resumed when blood pressure stabilized. He did have new recent
prescription for tramadol 100 mg twice daily started on 01/30/2025 just recommended being stopped. His Prozac and risperidone were also stopped due to QTc prolongation
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
Medical History
Past Medical History
Past Medical History: Reports Other
Additional Past Medical History:
ASCVD (CAD, CVA, PAD)
Multidrug Resistant Hypertension
DM-II
CKD IIIB
CVA with Left Hemiparesis
Memory impairment due to CVA
Chronic ambulatory dysfunction
Chronic Anemia
Depression
GERD
BPH
Past Surgical History: Reports Other
Additional Past Surgical History:
CABG
Other surgeries are unknown
Social History
Tobacco: Former Smoker
Alcohol: None
Drug: None
Living: Alf
Employment: Disabled
Family History
Family History: Not pertinent
Allergies / Home Medications
Allergies reflects when Allergies were last updated in [employer].
Home Medications with original date entered in [employer]
Allergy/Medication List:
Allergies
Allergy/AdvReac Type Severity Reaction Status Date / Time
Iodinated Contrast Media Allergy Unknown Verified 02/03/25 05:13
shellfish derived Allergy Unknown Verified 02/03/25 05:13
Home Medications
acetaminophen 325 mg tablet 650 mg PO Q6HPRN PRN MILD pain/fever 12/29/24
aspirin 81 mg chewable tablet 81 mg PO DAILY Blood Clot Prevention/Tx 12/29/24
atorvastatin 40 mg tablet 40 mg PO HS High Cholesterol 12/29/24
bisacodyl 10 mg rectal suppository 10 mg MN DAILYPRN PRN no BM AFTR MOM 12/29/24
calcium acetate 667 mg tablet 667 mg PO AC Supplement 12/29/24
cholecalciferol (vitamin D3) 1,250 mcg (50,000 unit) capsule 1,250 mcg PO MO Supplement 12/29/24
clopidogrel 75 mg tablet 75 mg PO DAILY Blood Clot Prevention/Tx 12/29/24
hydralazine 100 mg tablet 100 mg PO TID Blood Pressure 12/29/24
insulin lispro 100 unit/mL subcutaneous pen 8 unit SC MEALS Diabetes 12/29/24
isosorbide dinitrate 30 mg tablet 30 mg PO DAILY Blood Pressure 12/29/24
levothyroxine 75 mcg tablet 75 mcg PO DAILY Thyroid 12/29/24
nicotine 7 mg/24 hr daily transdermal patch 1 patch transdermal Q24H Smoking Cessation 12/29/24
nifedipine 60 mg tablet,extended release 24 hr 60 mg PO DAILY Blood Pressure 12/29/24
sennosides 8.6 mg-docusate sodium 50 mg tablet 1 tab-cap PO HS Constipation 12/29/24
sodium phosphates 19 gram-7 gram/118 mL enema (Fleet Enema) 118 ml MN DAILYPRN PRN if suppository not affective 12/29/24
tamsulosin 0.4 mg capsule 0.4 mg PO HS Urinary Issue 12/29/24
sodium bicarbonate 650 mg tablet 1,300 mg PO BID Supplement 01/08/25
insulin glargine 100 unit/mL (3 mL) subcutaneous pen (Lantus Solostar U-100 Insulin) 10 unit (0.1 mL) SC HS Diabetes #0 mL 02/02/25
magnesium hydroxide 400 mg/5 mL oral suspension (Milk of Magnesia) 30 ml PO [id number] PRN constipation 02/03/25
Review of Systems
-
History Source: Patient and Family (Sisters at bedside)
A 12 point ROS was completed and negative except as noted: Yes
Constitutional: Denies Fever or Chills
EENT: Denies Sore Throat or Runny Nose
Respiratory: Denies Cough or Trouble Breathing
Cardiac: Denies Chest Pain, Diaphoresis, Palpitations or Syncope
Abdomen/GI: Denies Abdominal Pain, Nausea, Vomiting, Diarrhea, Constipated or Bloody Stools
: Reports Urgency; Denies Dysuria, Frequency or Flank Pain
Musculoskeletal: Denies Joint Pain or Edema
Skin: Denies Itching or Rash
Neurological: Denies Dizzy, Headache or Weakness
Endocrine: Reports No Symptoms
Hematologic/Lymphatic: Reports No Symptoms
Psych: Reports Calm
Physical Exam
Vital Signs
Vital Signs
Temp Pulse Resp BP Pulse Ox
98.6 F 98 13 230/88 99
02/03/25 13:22 02/03/25 14:57 02/03/25 13:49 02/03/25 14:57 02/03/25 14:48
Physical Exam
General: Conversant; No Fever or Chills
HEENT: NormoCephalic, Anicteric, Moist mucous membranes, PERRLA, [place] Conjunctivae and No Ptosis
Respiratory: Clear; No Wheezes, Rales or Rhonchi
Cardiac: S1/S2 and Bradycardia; No Murmur, Rub, Gallop or Peripheral Edema
Breast: Deferred by me
GI: Soft, Non Tender, Non Distended, Normal Bowel Sounds and No Hepatosplenomegaly
Rectal: Deferred by Provider
Genito-urinary: Deferred by me
Musculoskeletal: No Clubbing, No Cyanosis and No Edema
Skin: Warm, Dry and Other (Multi-Podus boots in place)
Neuro: Awake, Alert and Oriented (To name, place, sisters but not history); No Slurred Speech, Facial Droop, Tremors or Sedated
Psych: Calm
Laboratory Results
-
02/03/25 05:16
02/03/25 05:16
Laboratory Results
APTT Cancelled 02/03/25 12:40
Total Bilirubin 0.4 mg/dl (0.2-1.3) 02/03/25 05:16
AST 19 U/L (17-59) 02/03/25 05:16
ALT 22 U/L (0-50) 02/03/25 05:16
Alkaline Phosphatase 76 U/L (38-126) 02/03/25 05:16
Troponin I 0.048 ng/ml H* 02/03/25 11:55
Impression/Plan
-
Impression/plan:
Admit to telemetry
#Hypertensive urgency due to BP meds held recent hypotension bradycardia admission
#Multidrug Resistant Hypertension
Admitted Hypotension/ANUP systolic 70s/bradycardia 40s all BP meds were held
BP 230/88
-Patient was on hydralazine 100 mg 3 times daily, Imdur 30 mg daily, nifedipine 60 mg daily prior to 01/30/2025
IV hydralazine 10 mg given in ER BP 179/81
-Will resume hydralazine 100 mg p.o. 3 times daily
-hold imdur, nifedipine may slowly add back medications if blood pressure tolerates
#Acute on chronic bradycardia unclear
Heart rate currently 58 bpm >92 post iv hydralazine
TSH within normal limits
# Elevated troponin
0.052> 0.048 will trend
Follow EKG
#History urinary retention due to prior trauma urethral meatus
Patient reports needed bladder scan with straight cath 4 times yesterday 02/02/2025
Will BladderScan and straight cath if needed according to protocol
-Bladder scan in ER 350 cc
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
#CKD 4
-Creatinine 3 appears baseline since DC 02/02/2025
--Continue sodium bicarb 1300 mg twice daily, calcium acetate 667 p.o. with meals
#Recent QTc prolongation 01/30/2025/current QTc prolongation
Acute on chronic cognitive impairment, restlessness, depression due to CVA
-Patient's Prozac and risperidone were stopped on 01/30/2025
Do to prolong QTc will give IV Valium now and as needed
-Consult placed to psychiatry Dr. Anguiano aware need for replacement medication
QTc 506 MS
- Follow QTc
-
EKG sinus bradycardia 58 bpm with prolonged QTc otherwise normal
#Hypothyroidism
-Continue levothyroxine 75 mcg p.o. daily
#Cognitive impairment due to CVA
#Left Hemiparesis as Late Effect of CVA
Patient is oriented to name, sister, place but not to past history or years of occurrence
- Continue ASA, Plavix, statin, etc.
# DM-II
-Accu-Cheks with SSI, Hgb last month 9%
-Continue Lantus 10 units SQ at bedtime
#Anemia of CKD
- Stable. Hgb is at / near known baseline.
#Major Depression
- Continue current psychotropic med regimen.
- Holding parameters to avoid excessive sedation
#Right heel unstageable wound POA recent admission
Left heel small ecchymotic area POA recent admission
Was advised outpatient follow-up with wound care
- Continue Multi-Podus boots
#Former smoker
Continue nicotine patch
DVT Prophylaxis: Subcut heparin
Code Status: Full
--- NOTE | 2025-02-03 15:09 | W.PN.UPDATE ---
Update Note
Progress Note Update
This note serves as an addendum to the H&P by clinical assistant professor Nathalia Jenkins
HPI�
60M sent from [facility], HX HTN ( Hydralazine) IDDM ( Lantus and Lispro) s ASCVD, , CKD seen at ER
- he was sent from [facility] with elevated BP 230s/80 - IV Hydralazine 10mg plus PO 100mg at ER
- Report CP 2 days ago, No CP on arrival
- admission TPNI 0.052
- DC'd on 02/02/25 - holding anti HTN Meds due to ANUP, Hypotension and bradycardia
PHX
02/03/25
12:02 02/03/25
13:22
Temp 98.6 F
Pulse 60 69
Resp Rate 16
Blood pressure 204/74 174/92
SaO2 98 99
Oxygen Mode of Delivery Room air Room air
PE:
Gen:NAD
HEENT: anicteric
Neck: supple
Lungs:CTA
Cor: RRR S1 S2
Abdomen:� Soft, Non Tender, Non Distended
CHEMICAL MANAGER: AAO3 - chr L motor hemiparesis from prior CVA
MS:no edema
Psych:
Relevant Data
01/31/25 02/02/25 02/03/25
06:22 07:38 05:16
WBC 7.6 8.2
Hgb 10.7 L 11.6 L
Potassium 5.0 5.0
Carbon Dioxide
BUN 36 H 34 H
Creatinine 3.0 H 3.0 H
eGFR 23.49 23.34
01/30/25 02/03/25 02/03/25
23:35 08:29 11:55
Troponin I 0.022 0.052 H* 0.048 H*
Last hospitalist admission: 01/31/25 - 02/02/25
ASSESSMENT & PLAN
Pending Rx reconciliation
HTN urgency due to holding Anti HTN Meds due to ANUP, hypotension on last admission
Bradycardia
HX multidrug resistant HTN
- Improved BP s/p PO Hydralazine PO and IV
- To resume IMN as BP tolerates
- add IV Hydralazine PRN
Bradycardia
Suspected Orthostatic Hypotension
- check TSH
- TL monitor
HX QTc prolongation on EKG
QTc 506
- DC' d Risperidone and Prozac on last admission
- TLM monitor
[place] Cr at 3
Recent ANUP
HX CKD3b/4
HX Anemia of CKD
- Trend Cr
- Observe Cr and BP while reintroducing BP Meds
- Hgb near known baseline
- Follow H&H
ASCVD HX
Left Hemiparesis a s/p CVA
- Continue ASA, Plavix, statin, etc.
IDDM
- c/w basal bolus regimen -
- add SSI low
- A1C last month was 9%.
Major Depression
- c/w current psychotropic med regimen.
- Holding parameters to avoid excessive sedation.
Right heel unstageable
Left heel with small red ecchymotic area
- wound care consult
DVT Px - SQH
Full code
IP TLM
--- NOTE | 2025-02-03 17:08 | EDRN ---
the pt had an episode of incontinence, this RN and PCT cleaned the pt up and repositioned the pt for comfort, this RN provided a new gown and linens and covidian for the pt, the pt is still hypertensive however when blood pressure goes off the pt
will not be still the pt will move his arm
--- NOTE | 2025-02-03 17:14 | EDRN ---
this RN called the receiving unit and notified them that paper report was going to be tubed up
--- NOTE | 2025-02-03 17:16 | EDRN ---
this RN spoke to Jeanie Jenkins STEEL FABRICATING SUPERVISOR regarding the pts continued hypertension, no new orders received at this time
[2025-02-03] MEDS: VALIUM INJECTION 2 MG IV ×2 (17:36→23:27)
--- NOTE | 2025-02-03 17:45 | EDRN ---
the pt started to attempt to climb out of bed and continued to yell out and kept scratching his forehead which caused an abrasion, this RN cleansed the forehead and placed a band aid over the abrasion, this RN attempted to calm the pt down with
therapeutic communication and a relaxation video and the pt continued to scream out 'help someone help me', this RN notified Jeanie Jenkins FUR REPAIRER and per her orders this RN administered Valium IV
[2025-02-03 19:48] LABS: Glucose - Point of Care 327 mg/dl (70-99)
[2025-02-03] MEDS: HEPARIN 5000 UNITS SC (20:35)
[2025-02-03] MEDS: NOVOLOG FLEXPEN 8 UNITS SC (20:35)
[2025-02-03] MEDS: PHOSLO 667 MG PO (20:37)
[2025-02-03] MEDS: NICODERM TRANSDERMAL 7 MG TRANSDERM (20:37)
[2025-02-03] MEDS: SODIUM BICARBONATE 1300 MG PO (20:37)
[2025-02-03 21:41] LABS: Urine Character Clear (Clear)
[2025-02-03 21:51] LABS: Urine Squamous Cell 0-2 /LPF (Few)
[2025-02-03 22:04] LABS: Glucose - Point of Care 291 mg/dl (70-99)
[2025-02-03] MEDS: FLOMAX 0.4 MG PO (22:28)
[2025-02-03] MEDS: LIPITOR 40 MG PO (22:28)
[2025-02-03] MEDS: LANTUS 0.1 UNITS SC (22:28)
[2025-02-03] MEDS: SENOKOT-S 1 TABLET PO (22:28)
[2025-02-04] VITALS (8 sets, daily range): BP systolic 135–189; BP diastolic 66–93; PULSE 74; O2SAT 99; BMI 27.9
[2025-02-04] MEDS: DESYREL 25 MG PO ×2 (02:00→22:29)
[2025-02-04] MEDS: APRESOLINE 10 MG IV (02:27)
[2025-02-04] MEDS: SYNTHROID 75 MCG PO (05:47)
[2025-02-04 06:28] LABS: Hematocrit 33.3 % (39.0-52.0); Hemoglobin 11.5 g/dL (13.0-18.0); Mean Corp Hgb Conc. 34.5 g/dL (33.0-37.0); Mean Corpuscular Volume 89.3 fL (80.0-94.0); Nucleated Red Blood Cells % 0 % (-); Platelet Count 309 10^3/uL (130-400); Red Cell Dist. Width 12.7 % (11.5-14.5)
[2025-02-04 06:54] LABS: ALT (SGPT) 20 U/L (0-50); AST (SGOT) 15 U/L (17-59); Albumin 3.6 g/dl (3.5-5.0); Alkaline Phosphatase 95 U/L (38-126); Blood Urea Nitrogen 31 mg/dl (9-20); Calcium 9.1 mg/dl (8.4-10.2); Carbon Dioxide 23 mmol/L (22-30); Chloride 107 mmol/L (98-107); Estimated Creatinine Clearance 27 ml/min; Glucose 138 mg/dl (70-99); Potassium 4.4 mmol/L (3.5-5.1); Sodium 134 mmol/L (135-145); Total Protein 6.5 g/dl (6.3-8.2); eGFR 24.31
[2025-02-04] MEDS: PLAVIX 75 MG PO (08:54)
[2025-02-04] MEDS: SODIUM BICARBONATE 1300 MG PO ×2 (08:54→19:39)
[2025-02-04] MEDS: LOW STRENGTH ASPIRIN 81 MG PO (08:54)
[2025-02-04] MEDS: HEPARIN 5000 UNITS SC ×2 (08:55→19:40)
[2025-02-04] MEDS: DRISDOL (VITAMIN D2) 50000 UNITS PO (09:00)
[2025-02-04] MEDS: APRESOLINE 100 MG PO ×3 (09:04→22:27)
[2025-02-04 09:21] LABS: Glucose - Point of Care 162 mg/dl (70-99)
[2025-02-04] MEDS: NOVOLOG FLEXPEN 8 UNITS SC ×2 (09:21→17:23)
[2025-02-04] MEDS: PHOSLO 667 MG PO ×2 (09:27→16:34)
[2025-02-04 11:59] LABS: Glucose - Point of Care 159 mg/dl (70-99)
--- NOTE | 2025-02-04 12:13 | W.PN.HOSP.TC ---
Today's Communication/Plan
-
see plan
Assessment / Plan
Assessment / Plan
Gen: NAD, Awake and alert
Eyes: EOMI, PERRLA, no scleral icterus.
Neck: supple.
CV: RRR, +S1/S2, no m/r/g.
Resp: CTAB, no rales, wheezes, or rhonchi.
Abd: +BS, soft, NT, ND
Skin: B/L boots in place, otherwise no rashed
Hypertensive urgency:
-due to antihypertensive medications being held due to hypotension and bradycardia
-BP as high as 242/205 on admission
-appreciate renal, discussed with renal
-cont Procardia XL/hydralazine
Depression:
-Prozac/Risperdal stopped 01/30 due to prolonged QTc
-psych to see
Other problems:
Elevated troponin due to nonischemic myocardial injury
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
CKD4: Cont NaHCO3
Hypothyroidism: cont Levoxyl
Chronic cognitive impairment due to CVA
h/o CVA with L-hemiparesis: cont ASA/statin/Plavix
DM2: cont Lantus/premeal Novolog/SSI/accuchecks
Anemia of CKD: Hb stable
Former smoker: cont nicotine patch
Wounds, POA:
Right heel unstageable wound
Left heel small ecchymotic area
-Continue Multi-Podus boots
FULL/heparin
Dispo: Monitor BP another 24 hours, hopefully d/c tomorrow
Total time spent on today's encounter was 50 minutes which included time spent in counseling the patient/family regarding diagnosis and treatment plan as listed above, goals of care, and symptom management. Case was discussed with nursing staff,
specialists, and care coordinators/case management. All labs and imaging personally reviewed by me. Remainder the time spent in detailed review of previous records, lab data, imaging, and other medical provider documentation.
Anticipated Discharge: Within 24 hours
Subjective/Interval History
-
Date of Service: February 04, 2025
No new complaints. Complains of chronic lower extremity pain.
Objective Data
-
Labs:
Laboratory Results
02/04/25
05:59
WBC 10.0
Hgb 11.5 L
Hct 33.3 L
Plt Count 309
Sodium 134 L
Potassium 4.4
Chloride 107
Carbon Dioxide 23
BUN 31 H
Creatinine 2.9 H
Glucose 138 H
Calcium 9.1
Total Bilirubin 0.5
AST 15 L
ALT 20
Alkaline Phosphatase 95
Vital Signs:
Vital Signs
Temp Pulse Resp BP Pulse Ox
97.6 F 78 16 169/91 96
02/04/25 11:21 02/04/25 11:21 02/04/25 11:21 02/04/25 11:21 02/04/25 11:21
I&O
02/03/25 02/04/25 02/05/25
06:59 06:59 06:59
Intake Total 2400 / 2400
Output Total 2074 / 2074
Balance 325 / 325
[2025-02-04] MEDS: PHOSLO PO (13:04)
[2025-02-04] MEDS: PROCARDIA XL (EXTENDED RELEASE) 60 MG PO (13:05)
[2025-02-04 13:41] LABS: Microalb - Urine Creatinine 48.100 mg/dl
--- NOTE | 2025-02-04 13:58 | CM ---
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 Pt will return to [facility] when he is medically cleared.
Plan: Return to [facility]. Will need ambulance transport.
[facility] Report: [phone] or [phone]
[facility]
[2025-02-04 14:04] LABS: Microalbumin, Random Urine > 57.0 mg/dl (0.6-1.7)
--- NOTE | 2025-02-04 15:15 | WOUNDNOTE ---
[facility] RN note: Patient admitted with hypertensive urgency.
See H&P for complete history[facility]
PMH: He has past medical history of CAD/CABG, CVA, PAD, multidrug-resistant hypertension, DM 2, CKD 3B, memory impairment due to CVA with left hemiparesis, chronic anemia, depression, GERD, BPH, former smoker, b/l heel pressure injuries, healed PI
on buttock.
Wound Location and type/assessment: Patient admitted with: Healing PI's on heels. Patient known to service, last seen 02/01/25 for L heel DTI and R heel unstageable PI. L heel with tiny dry hernandez eschar, nearly healed. R heel edges lifting up, dry
brown eschar in center, suspect stage 3 PI. Healed PI on R buttock, blanchable light purple. Patient able to turn self to sides with minimal assist. TruVue lite heel boots in use and pillow under calves.
Appetite: Good, encouraged protein in diet, states he knows he needs to eat protein, likes to eat chicken and beef. Patient reports he wears sneakers when getting oob to wheelchair, uses walker to ambulate.
Pressure redistribution devices in place: On Accumax, offloading heels with pillow and heel boots.
Plan: Local wound care done to heels, will order Santyl to start tomorrow for R heel. Protective foam applied to buttocks. Encouraged turning while in bed. Air chair cushion when sitting and offload heels.
Will confirm orders with hospitalist and updated nurse Rommel. Updated care plan and will follow as needed.
Note to case management of equipment requested for discharge: None.
Recommend follow up at wound care center upon discharge.
--- NOTE | 2025-02-04 15:37 | CM ---
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 Pt will return to [facility] when he is medically cleared.
Plan: Return to [facility]. Will need ambulance transport.
[facility] Report: [phone] or [phone]
[facility]
[2025-02-04] MEDS: NOVOLOG FLEXPEN SC (15:55)
--- NOTE | 2025-02-04 16:52 | W.CON.NEPH ---
Consultation
-
Date/Time Consultation Requested: 02/04/2025 11 AM
Date/Time Consultation Performed: 02/04/2025 11 AM
Requesting Provider: Dr. Mojcia
Performing Provider: Dr. Mac
Reason for Consultation: Hypertension
Medical History
-
Chief Complaint: Hypertension
History of Present Illness:
This is a 60-year-old gentleman who resides at [facility] who has hypertension on a multidrug regimen. This has been difficult to control over time. He also has diabetes which is poorly controlled on insulin therapy. His last known A1c was
9.0. He also has hyperlipidemia which is stable on statin therapy. He had a marble cutter in the past though he has not seen them for several years as this was back when he lived in [place] and now he resides at [facility] likely for the
foreseeable future. He has not had any renal follow-up since that point. He was in the hospital last week with acute kidney injury and hypotension and bradycardia. IV fluids were given with improvement of his renal failure. His antihypertensives
were held at that time. He was subsequently returned to [facility]. He returns today because of blood pressures greater than 200. He also has urinary retention requiring straight catheterization.
His baseline creatinine appears to be close to 3.0 representing CKD 4.
Past Medical History
ASCVD (CAD, CVA, PAD)
Multidrug Resistant Hypertension
DM-II
CKD 4
CVA with Left Hemiparesis
Memory impairment due to CVA
Chronic ambulatory dysfunction
Chronic Anemia
Depression
GERD
BPH
CABG
Social History
Tobacco: Former Smoker
Alcohol: None
Family History
Family History: Not Pertinent
Allergies / Home Medications
Allergy/AdvReac Type Severity Reaction Status Date / Time
Iodinated Contrast Media Allergy Unknown Verified 02/03/25 05:13
shellfish derived Allergy Unknown Verified 02/03/25 05:13
�Medication �Instructions �Recorded �Confirmed �Type
acetaminophen 325 mg tablet 650 mg PO Q6HPRN PRN MILD 12/29/24 02/03/25 History
pain/fever
aspirin 81 mg chewable tablet 81 mg PO DAILY Blood Clot 12/29/24 02/03/25 History
Prevention/Tx
atorvastatin 40 mg tablet 40 mg PO HS High Cholesterol 12/29/24 02/03/25 History
bisacodyl 10 mg rectal suppository 10 mg [place] DAILYPRN PRN no BM AFTR 12/29/24 02/03/25 History
MOM
calcium acetate 667 mg tablet 667 mg PO AC Supplement 12/29/24 02/03/25 History
cholecalciferol (vitamin D3) 1,250 1,250 mcg PO MO Supplement 12/29/24 02/03/25 History
mcg (50,000 unit) capsule
clopidogrel 75 mg tablet 75 mg PO DAILY Blood Clot 12/29/24 02/03/25 History
Prevention/Tx
hydralazine 100 mg tablet 100 mg PO TID Blood Pressure 12/29/24 02/03/25 History
insulin lispro 100 unit/mL 8 unit SC MEALS Diabetes 12/29/24 02/03/25 History
subcutaneous pen
isosorbide dinitrate 30 mg tablet 30 mg PO DAILY Blood Pressure 12/29/24 02/03/25 History
levothyroxine 75 mcg tablet 75 mcg PO DAILY Thyroid 12/29/24 02/03/25 History
nicotine 7 mg/24 hr daily 1 patch transdermal Q24H Smoking 12/29/24 02/03/25 History
transdermal patch Cessation
nifedipine 60 mg tablet,extended 60 mg PO DAILY Blood Pressure 12/29/24 02/03/25 History
release 24 hr
sennosides 8.6 mg-docusate sodium 1 tab-cap PO HS Constipation 12/29/24 02/03/25 History
50 mg tablet
sodium phosphates 19 gram-7 118 ml W[place] DAILYPRN PRN if 12/29/24 02/03/25 History
gram/118 mL enema (Fleet Enema) suppository not affective
tamsulosin 0.4 mg capsule 0.4 mg PO HS Urinary Issue 12/29/24 02/03/25 History
sodium bicarbonate 650 mg tablet 1,300 mg PO BID Supplement 01/08/25 02/03/25 History
insulin glargine 100 unit/mL (3 10 unit (0.1 mL) SC HS Diabetes #0 02/02/25 02/03/25 Rx
mL) subcutaneous pen (Lantus mL
Solostar U-100 Insulin)
magnesium hydroxide 400 mg/5 mL 30 ml PO [id number] PRN constipation 02/03/25 02/03/25 History
oral suspension (Milk of Magnesia)
Review of Systems
-
No headache chest pain or shortness of breath
Physical Exam
Vital Signs
Vital Signs
Temp Pulse Resp BP Pulse Ox
98.1 F 73 16 154/69 98
02/04/25 15:34 02/04/25 16:34 02/04/25 15:34 02/04/25 16:34 02/04/25 15:34
Lab Results
WBC 10.0 10^3/uL (4.8-10.8) 02/04/25 05:59
RBC 3.73 10^6/uL (4.70-6.10) L 02/04/25 05:59
Hgb 11.5 g/dL (13.0-18.0) L 02/04/25 05:59
Hct 33.3 % (39.0-52.0) L 02/04/25 05:59
Plt Count 309 10^3/uL (130-400) 02/04/25 05:59
Sodium 134 mmol/L (135-145) L 02/04/25 05:59
Potassium 4.4 mmol/L (3.5-5.1) 02/04/25 05:59
Chloride 107 mmol/L (98-107) 02/04/25 05:59
Carbon Dioxide 23 mmol/L (22-30) 02/04/25 05:59
BUN 31 mg/dl (9-20) H 02/04/25 05:59
Creatinine 2.9 mg/dL (0.7-1.3) H 02/04/25 05:59
eGFR 24.31 02/04/25 05:59
Glucose 138 mg/dl (70-99) H 02/04/25 05:59
Calcium 9.1 mg/dl (8.4-10.2) 02/04/25 05:59
Albumin 3.6 g/dl (3.5-5.0) 02/04/25 05:59
Physical Exam
Patient is awake alert oriented and in no distress. Mood and affect were pleasant. Pupils are equal round and reactive to light, extraocular movements are intact, sclera were anicteric. Hearing was normal, ears and nose are intact. Oropharynx was
clear. Neck was supple with trachea midline and no thyromegaly. Heart was regular rate and rhythm without rubs. Lower extremities without edema. Lungs were clear to auscultation bilaterally and with normal excursion. Abdomen was soft, nontender,
with normal active bowel sounds, and no hepatosplenomegaly. Skin was without rash and with normal turgor.
Data Reviewed
-
Radiology: Image Personally Visualized and interpreted (EKG 02/03/2025 by my read sinus bradycardia prolonged QT nonspecific ST abnormality)
Medical Tests (Nuc Med, Echo etc): Report Reviewed by me (Renal artery duplex on 02/04/2025 shows no renal artery stenosis)
Labs: Labs Reviewed by me
Old Records: Reviewed
Assessment/Plan
-
Assessment
Hypertensive urgency
CKD 4
Hyponatremia
Metabolic acidosis
Elevated troponin
Urinary retention
Plan
Restart nifedipine
Increase tamsulosin
Follow bladder scan
Follow BMP
Secondary hypertensive workup ordered
Check urine protein creatinine ratio, he likely has diabetic kidney disease along with hypertensive nephropathy
He would likely benefit from RAAS and admission as well as SGLT2 inhibitor therapy but will need to watch creatinine carefully. Unfortunately this may likely not be able to be done safely at [facility]
[2025-02-04 16:56] LABS: Glucose - Point of Care 117 mg/dl (70-99)
[2025-02-04] MEDS: NICODERM TRANSDERMAL 7 MG TRANSDERM (17:24)
[2025-02-04] MEDS: DESENEX/MITRAZOL/ZEASORB 1 APPLIC TOPICAL (19:42)
[2025-02-04 22:06] LABS: Glucose - Point of Care 151 mg/dl (70-99)
[2025-02-04] MEDS: LIPITOR 40 MG PO (22:28)
[2025-02-04] MEDS: FLOMAX 0.8 MG PO (22:29)
[2025-02-04] MEDS: LANTUS 0.1 UNITS SC (22:36)
[2025-02-04] MEDS: SENOKOT-S 1 TABLET PO (22:36)
--- NOTE | 2025-02-04 22:44 | CS.PSYCHR ---
Consult Summary - Psychiatry
-
pt seen this afternoon in consultation for medication management
60 yo man with hx of CVA living in SNF. admitted due to hypertension uncontrolled. Has history of ASCVD, DM, hemiplegia. Carries diagnosis of major depression, had been treated with trazodone and risperdal in the past. QTc prolonged, so
psychotropics need to be used with caution.
Difficult to get history from charts, pt limited historian.
Born and raised in [place], attended [employer], older brother, never , no children. has aunts whom he feels close to.
Denies depression, denies all psychiatric symptoms
MSE lying in bed, calm, cooperative, pleasant. Able to give history of recent decline in functioning but remains interested in living even in reduced circumstances. No signs of psychosis, no gross cognitive impariemtn, oriented x3 and to situation.
Impression; No current psychiatric needs, OK to hold all psychotropic agents for now. Please contact service if symptoms develop
[2025-02-05] VITALS (8 sets, daily range): BP systolic 136–207; BP diastolic 60–106; BMI 25.6
[2025-02-05] MEDS: APRESOLINE 10 MG IV ×2 (03:47→22:56)
[2025-02-05] MEDS: SYNTHROID 75 MCG PO (05:14)
[2025-02-05 06:33] LABS: Hematocrit 33.4 % (39.0-52.0); Hemoglobin 11.5 g/dL (13.0-18.0); Mean Corp Hgb Conc. 34.4 g/dL (33.0-37.0); Mean Corpuscular Volume 89.5 fL (80.0-94.0); Nucleated Red Blood Cells % 0 % (-); Platelet Count 329 10^3/uL (130-400); Red Cell Dist. Width 12.9 % (11.5-14.5)
[2025-02-05 07:19] LABS: ALT (SGPT) 18 U/L (0-50); AST (SGOT) 13 U/L (17-59); Albumin 3.5 g/dl (3.5-5.0); Alkaline Phosphatase 98 U/L (38-126); Blood Urea Nitrogen 27 mg/dl (9-20); Calcium 9.4 mg/dl (8.4-10.2); Carbon Dioxide 25 mmol/L (22-30); Chloride 108 mmol/L (98-107); Estimated Creatinine Clearance 26 ml/min; Glucose 119 mg/dl (70-99); Potassium 4.7 mmol/L (3.5-5.1); Sodium 136 mmol/L (135-145); Total Protein 6.4 g/dl (6.3-8.2); eGFR 23.34
[2025-02-05 08:03] LABS: Glucose - Point of Care 132 mg/dl (70-99)
[2025-02-05] MEDS: APRESOLINE 100 MG PO ×3 (08:34→21:16)
[2025-02-05] MEDS: PLAVIX 75 MG PO (08:34)
[2025-02-05] MEDS: SODIUM BICARBONATE 1300 MG PO ×2 (08:34→19:40)
[2025-02-05] MEDS: PHOSLO 667 MG PO ×3 (08:34→16:18)
[2025-02-05] MEDS: PROCARDIA XL (EXTENDED RELEASE) 60 MG PO (08:35)
[2025-02-05] MEDS: HEPARIN 5000 UNITS SC ×2 (08:36→19:40)
[2025-02-05] MEDS: LOW STRENGTH ASPIRIN 81 MG PO (08:36)
[2025-02-05] MEDS: DESENEX/MITRAZOL/ZEASORB 1 APPLIC TOPICAL ×2 (08:37→19:47)
[2025-02-05] MEDS: HYDROPHOR 1 APPLIC TOPICAL (08:38)
--- NOTE | 2025-02-05 09:04 | W.PN.HOSP.TC ---
Today's Communication/Plan
-
see plan
Assessment / Plan
Assessment / Plan
Gen: NAD, Awake and alert
Eyes: EOMI, PERRLA, no scleral icterus.
Neck: supple.
CV: remains RRR, +S1/S2, no m/r/g.
Resp: remains CTAB, no rales, wheezes, or rhonchi.
Abd: +BS, soft, NT, ND
Skin: B/L boots in place, otherwise no rashes
Neuro: CN2-12 intact
Hypertensive urgency:
-due to antihypertensive medications being held due to hypotension and bradycardia
-BP as high as 242/205 on admission
-appreciate renal, discussed with renal
-cont Procardia XL/hydralazine
-flomax increased
-secondary hypertension workup underway including serum catecholamines/renin/aldosterone
Depression:
-Prozac/Risperdal stopped 01/30 due to prolonged QTc
-psych saw in c/s, will not restart psychotropic medications at this time
Other problems:
Elevated troponin due to nonischemic myocardial injury
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
CKD4: Cont NaHCO3
Hypothyroidism: cont Levoxyl
Chronic cognitive impairment due to CVA
h/o CVA with L-hemiparesis: cont ASA/statin/Plavix
DM2: cont Lantus/premeal Novolog/SSI/accuchecks
Anemia of CKD: Hb stable
Former smoker: cont nicotine patch
Wounds, POA:
Right heel unstageable wound
Left heel small ecchymotic area
-Continue Multi-Podus boots
FULL/heparin
Dispo: likely d/c tomorrow after further BP med adjustments by renal today
Anticipated Discharge: Within 24 hours
Subjective/Interval History
-
Date of Service: February 05, 2025
Objective Data
-
Labs:
Laboratory Results
02/05/25
05:52
WBC 8.8
Hgb 11.5 L
Hct 33.4 L
Plt Count 329
Sodium 136
Potassium 4.7
Chloride 108 H
Carbon Dioxide 25
BUN 27 H
Creatinine 3.0 H
Glucose 119 H
Calcium 9.4
Total Bilirubin 0.6
AST 13 L
ALT 18
Alkaline Phosphatase 98
Vital Signs:
Vital Signs
Temp Pulse Resp BP Pulse Ox
97.9 F 84 16 178/76 96
02/05/25 07:59 02/05/25 08:34 02/05/25 07:59 02/05/25 08:34 02/05/25 07:59
I&O
02/04/25 02/05/25 02/06/25
06:59 06:59 06:59
Intake Total 2400 / 2400 1140 / 1140
Output Total 2074 / 2074 880 / 880
Balance 325 / 325 260 / 260
--- NOTE | 2025-02-05 10:12 | CM ---
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 Pt will return to [facility] when he is medically cleared.
Plan: Return to [facility]. Will need ambulance transport.
[facility] Report: [phone] or [phone]
[facility]
[2025-02-05] MEDS: NOVOLOG FLEXPEN 8 UNITS SC ×3 (10:16→18:12)
--- NOTE | 2025-02-05 11:44 | W.PN.NEPH.PH ---
Today's Communication / Plan
-
follow BMP
Assessment/Plan
-
Assessment
Hypertensive urgency
CKD 4
Hyponatremia
Metabolic acidosis
Elevated troponin
Urinary retention
Plan
back on nifedipine
Increased tamsulosin
Follow bladder scan
Follow BMP
Secondary hypertensive workup ordered, no ARELY
Check urine protein creatinine ratio, he likely has diabetic kidney disease along with hypertensive nephropathy
He would likely benefit from RAAS and admission as well as SGLT2 inhibitor therapy but will need to watch creatinine carefully. Unfortunately this may likely not be able to be done safely at [facility]
-
-
Date of Service: February 05, 2025
CC / HPI / ROS
-
Chief Complaint:
HTN
History of Present Illness:
BP better this am
Cr unchanged at 3.0
Na normal
high PVR still with prn straight cath
Review of Systems:
no CP/SOB
Labs
-
Labs:
WBC 8.8 10^3/uL (4.8-10.8) 02/05/25 05:52
RBC 3.73 10^6/uL (4.70-6.10) L 02/05/25 05:52
Hgb 11.5 g/dL (13.0-18.0) L 02/05/25 05:52
Hct 33.4 % (39.0-52.0) L 02/05/25 05:52
Plt Count 329 10^3/uL (130-400) 02/05/25 05:52
Sodium 136 mmol/L (135-145) 02/05/25 05:52
Potassium 4.7 mmol/L (3.5-5.1) 02/05/25 05:52
Chloride 108 mmol/L (98-107) H 02/05/25 05:52
Carbon Dioxide 25 mmol/L (22-30) 02/05/25 05:52
BUN 27 mg/dl (9-20) H 02/05/25 05:52
Creatinine 3.0 mg/dL (0.7-1.3) H 02/05/25 05:52
eGFR 23.34 02/05/25 05:52
Glucose 119 mg/dl (70-99) H 02/05/25 05:52
Calcium 9.4 mg/dl (8.4-10.2) 02/05/25 05:52
Albumin 3.5 g/dl (3.5-5.0) 02/05/25 05:52
Physical Exam
-
Vital Signs:
Vital Signs
Temp Pulse Resp BP Pulse Ox
97.9 F 77 17 136/60 98
02/05/25 10:28 02/05/25 10:28 02/05/25 10:28 02/05/25 10:28 02/05/25 10:28
Cardiovascular:: Regular rate and rhythm
Respiratory:: Bilateral: Coarse
Lung Excursion:: Normal
Abdomen:: Nontender and Soft
Bowel Sounds:: Normal
Extremity Edema:: +1: Bilateral:
[2025-02-05] MEDS: PHOSLO PO (12:00)
[2025-02-05] MEDS: NOVOLOG FLEXPEN SC (14:20)
[2025-02-05 14:41] LABS: Glucose - Point of Care 124 mg/dl (70-99)
[2025-02-05 17:11] LABS: Glucose - Point of Care 141 mg/dl (70-99)
[2025-02-05] MEDS: NICODERM TRANSDERMAL 7 MG TRANSDERM (18:12)
[2025-02-05 21:01] LABS: Glucose - Point of Care 183 mg/dl (70-99)
[2025-02-05] MEDS: LIPITOR 40 MG PO (21:17)
[2025-02-05] MEDS: DESYREL 25 MG PO (21:18)
[2025-02-05] MEDS: SENOKOT-S 1 TABLET PO (21:19)
[2025-02-05] MEDS: FLOMAX 0.8 MG PO (21:19)
[2025-02-05] MEDS: LANTUS 0.1 UNITS SC (21:19)
[2025-02-06] MEDS: SYNTHROID 75 MCG PO (05:03)
[2025-02-06 06:00] VITALS: BMI 25.3
[2025-02-06 07:51] VITALS: BP 204/99
[2025-02-06 08:08] LABS: Glucose - Point of Care 147 mg/dl (70-99)
[2025-02-06 08:37] VITALS: BP 200/100
[2025-02-06] MEDS: PROCARDIA XL (EXTENDED RELEASE) 60 MG PO (08:40)
[2025-02-06] MEDS: PHOSLO 667 MG PO ×3 (08:40→17:08)
[2025-02-06] MEDS: APRESOLINE 100 MG PO ×3 (08:40→22:32)
[2025-02-06] MEDS: LOW STRENGTH ASPIRIN 81 MG PO (08:41)
[2025-02-06] MEDS: PLAVIX 75 MG PO (08:41)
[2025-02-06] MEDS: SODIUM BICARBONATE 1300 MG PO ×2 (08:41→20:07)
[2025-02-06] MEDS: HEPARIN 5000 UNITS SC ×2 (08:42→20:08)
[2025-02-06] MEDS: APRESOLINE 10 MG IV (08:42)
[2025-02-06] MEDS: DESENEX/MITRAZOL/ZEASORB 1 APPLIC TOPICAL ×2 (08:43→21:57)
[2025-02-06] MEDS: HYDROPHOR 1 APPLIC TOPICAL (08:43)
[2025-02-06] MEDS: NOVOLOG FLEXPEN 8 UNITS SC ×3 (08:44→17:09)
--- NOTE | 2025-02-06 09:32 | W.PN.HOSP.TC ---
Today's Communication/Plan
-
see bold
Assessment / Plan
Assessment / Plan
Gen: NAD, Awake and alert
Eyes: EOMI, PERRLA, no scleral icterus.
Neck: supple.
CV: continues to remain RRR, +S1/S2, no m/r/g.
Resp: continues to remain CTAB, no rales, wheezes, or rhonchi.
Abd: remains +BS, soft, NT, ND
Skin: B/L boots in place, otherwise no rashes
Neuro: CN2-12 intact
Hypertensive urgency:
-due to antihypertensive medications being held due to hypotension and bradycardia
-BP as high as 242/205 on admission
-cont Procardia XL/hydralazine
-flomax increased
-secondary hypertension workup underway including serum catecholamines/renin/aldosterone
-renal following, discussed with Dr. Temple, will need to adjust/increase antihypertensives
Depression:
-Prozac/Risperdal stopped 01/30 due to prolonged QTc
-psych saw in c/s, will not restart psychotropic medications at this time
Other problems:
Elevated troponin due to nonischemic myocardial injury
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
CKD4: Cont NaHCO3
Hypothyroidism: cont Levoxyl
Chronic cognitive impairment due to CVA
h/o CVA with L-hemiparesis: cont ASA/statin/Plavix
DM2: cont Lantus/premeal Novolog/SSI/accuchecks
Anemia of CKD: Hb stable
Former smoker: cont nicotine patch
Wounds, POA:
Right heel unstageable wound
Left heel small ecchymotic area
-Continue Multi-Podus boots
FULL/heparin
Anticipated Discharge: Within 24 hours
Subjective/Interval History
-
Date of Service: February 06, 2025
No new complaints.
Objective Data
-
Vital Signs:
Vital Signs
Temp Pulse Resp BP Pulse Ox
98 F 96 16 200/100 96
02/06/25 07:51 02/06/25 07:51 02/06/25 07:51 02/06/25 08:37 02/06/25 07:51
I&O
02/05/25 02/06/25 02/07/25
06:59 06:59 06:59
Intake Total 1140 / 1140 900 / 900
Output Total 880 / 880
Balance 260 / 260 900 / 900
[2025-02-06 10:13] LABS: Blood Urea Nitrogen 30 mg/dl (9-20); Calcium 9.5 mg/dl (8.4-10.2); Carbon Dioxide 25 mmol/L (22-30); Chloride 107 mmol/L (98-107); Estimated Creatinine Clearance 25 ml/min; Glucose 138 mg/dl (70-99); Potassium 4.5 mmol/L (3.5-5.1); Sodium 136 mmol/L (135-145); eGFR 22.44
[2025-02-06 11:10] LABS: Glucose - Point of Care 155 mg/dl (70-99)
[2025-02-06 11:34] VITALS: BP 150/78
[2025-02-06 15:16] VITALS: BP 150/77
--- NOTE | 2025-02-06 16:42 | PTCARENOTE ---
Assumed care of patient at 1645. Assessment remains the same. Will continue with plan of care.
[2025-02-06 16:48] LABS: Glucose - Point of Care 179 mg/dl (70-99)
--- NOTE | 2025-02-06 16:48 | W.PN.NEPH.PH ---
Today's Communication / Plan
-
add PM procardia
cont other home meds same
Assessment/Plan
-
Assessment
Hypertensive urgency
CKD 4
Hyponatremia
Metabolic acidosis
Elevated troponin
Urinary retention
DM on insulin
Plan
stable CKD cr at 3.1
HTN-pt reports BPs always high at 160s
AM readings are high, will add procardia 30mg and cont Am 60mg
cont hydralazine, high dose flomax
Follow bladder scan, last one 94cc
Follow BMP
Secondary hypertensive workup pending, no ARELY
Check urine protein creatinine ratio, he likely has diabetic kidney disease along with hypertensive nephropathy
He would likely benefit from RAAS and admission as well as SGLT2 inhibitor therapy but will need to watch creatinine carefully. Unfortunately this may likely not be able to be done safely at [facility]
met acidosis is stable on po bicarb
-
-
Date of Service: February 06, 2025
CC / HPI / ROS
-
Chief Complaint:
HTN
History of Present Illness:
BP high in ams
Cr unchanged at 3.1
Na normal
high PVR still with prn straight cath, last scan 98cc
Review of Systems:
no CP/SOB
Labs
-
Labs:
WBC 8.8 10^3/uL (4.8-10.8) 02/05/25 05:52
RBC 3.73 10^6/uL (4.70-6.10) L 02/05/25 05:52
Hgb 11.5 g/dL (13.0-18.0) L 02/05/25 05:52
Hct 33.4 % (39.0-52.0) L 02/05/25 05:52
Plt Count 329 10^3/uL (130-400) 02/05/25 05:52
Sodium 136 mmol/L (135-145) 02/06/25 09:51
Potassium 4.5 mmol/L (3.5-5.1) 02/06/25 09:51
Chloride 107 mmol/L (98-107) 02/06/25 09:51
Carbon Dioxide 25 mmol/L (22-30) 02/06/25 09:51
BUN 30 mg/dl (9-20) H 02/06/25 09:51
Creatinine 3.1 mg/dL (0.7-1.3) H 02/06/25 09:51
eGFR 22.44 02/06/25 09:51
Glucose 138 mg/dl (70-99) H 02/06/25 09:51
Calcium 9.5 mg/dl (8.4-10.2) 02/06/25 09:51
Albumin 3.5 g/dl (3.5-5.0) 02/05/25 05:52
Physical Exam
-
Vital Signs:
Vital Signs
Temp Pulse Resp BP Pulse Ox
97.8 F 87 16 150/77 97
02/06/25 15:16 02/06/25 15:16 02/06/25 15:16 02/06/25 15:16 02/06/25 15:16
Cardiovascular:: Regular rate and rhythm
Respiratory:: Bilateral: CTA
Lung Excursion:: Normal
Abdomen:: Nontender and Soft
Bowel Sounds:: Normal
Extremity Edema:: +1: Bilateral:
Ruiz Catheter: No
[2025-02-06] MEDS: NICODERM TRANSDERMAL 7 MG TRANSDERM (17:13)
[2025-02-06] MEDS: TYLENOL 650 MG PO ×2 (18:19→22:26)
[2025-02-06 21:12] LABS: Glucose - Point of Care 263 mg/dl (70-99)
[2025-02-06] MEDS: LANTUS 0.1 UNITS SC (21:57)
[2025-02-06] MEDS: PROCARDIA XL (EXTENDED RELEASE) 30 MG PO (22:28)
[2025-02-06] MEDS: DESYREL 25 MG PO (22:29)
[2025-02-06] MEDS: SENOKOT-S 1 TABLET PO (22:31)
[2025-02-06] MEDS: FLOMAX 0.8 MG PO (22:31)
[2025-02-06] MEDS: LIPITOR 40 MG PO (22:32)
[2025-02-06 23:14] VITALS: BP 186/94
[2025-02-07 02:12] VITALS: BP 151/82
[2025-02-07] MEDS: SYNTHROID 75 MCG PO (05:43)
[2025-02-07 06:00] VITALS: BMI 25.7
[2025-02-07 07:23] LABS: Blood Urea Nitrogen 32 mg/dl (9-20); Calcium 9.3 mg/dl (8.4-10.2); Carbon Dioxide 23 mmol/L (22-30); Chloride 105 mmol/L (98-107); Estimated Creatinine Clearance 25 ml/min; Glucose 196 mg/dl (70-99); Potassium 4.2 mmol/L (3.5-5.1); Sodium 134 mmol/L (135-145); eGFR 22.44
[2025-02-07 07:36] VITALS: BP 193/101
[2025-02-07] MEDS: SODIUM BICARBONATE 1300 MG PO ×2 (08:27→21:04)
[2025-02-07] MEDS: PROCARDIA XL (EXTENDED RELEASE) 60 MG PO ×2 (08:27→21:10)
[2025-02-07] MEDS: PHOSLO 667 MG PO ×3 (08:27→17:58)
[2025-02-07] MEDS: HEPARIN 5000 UNITS SC ×2 (08:28→21:03)
[2025-02-07] MEDS: LOW STRENGTH ASPIRIN 81 MG PO (08:28)
[2025-02-07] MEDS: APRESOLINE 100 MG PO ×3 (08:28→21:05)
[2025-02-07] MEDS: PLAVIX 75 MG PO (08:28)
[2025-02-07] MEDS: APRESOLINE 10 MG IV ×2 (08:43→18:03)
[2025-02-07] MEDS: DESENEX/MITRAZOL/ZEASORB 1 APPLIC TOPICAL (08:49)
--- NOTE | 2025-02-07 09:29 | W.PN.HOSP.TC ---
Today's Communication/Plan
-
see plan
Assessment / Plan
Assessment / Plan
Gen: NAD, Awake and alert
Eyes: EOMI, PERRLA, no scleral icterus.
Neck: supple.
CV: RRR, +S1/S2, no m/r/g.
Resp: CTAB, no rales, wheezes, or rhonchi.
Abd: continues to remain +BS, soft, NT, ND
Skin: B/L boots in place, otherwise no rashes
Neuro: CN2-12 intact
Hypertensive urgency:
-due to antihypertensive medications being held due to hypotension and bradycardia
-BP as high as 242/205 on admission
-cont Procardia XL (PM dose added and will increase to 60mg)/hydralazine
-flomax increased
-secondary hypertension workup underway including serum catecholamines/renin/aldosterone
-renal following, discussed with Dr. Temple
Depression:
-Prozac/Risperdal stopped 01/30 due to prolonged QTc
-psych saw in c/s, will not restart psychotropic medications at this time
Other problems:
Elevated troponin due to nonischemic myocardial injury
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
CKD4: Cont NaHCO3
Hypothyroidism: cont Levoxyl
Chronic cognitive impairment due to CVA
h/o CVA with L-hemiparesis: cont ASA/statin/Plavix
DM2: cont Lantus/premeal Novolog/SSI/accuchecks
Anemia of CKD: Hb stable
Former smoker: cont nicotine patch
Wounds, POA:
Right heel unstageable wound
Left heel small ecchymotic area
-Continue Multi-Podus boots
FULL/heparin
Anticipated Discharge: Within 24 hours
Subjective/Interval History
-
Date of Service: February 07, 2025
No new complaints.
Objective Data
-
Labs:
Laboratory Results
02/07/25
06:18
Sodium 134 L
Potassium 4.2
Chloride 105
Carbon Dioxide 23
BUN 32 H
Creatinine 3.1 H
Glucose 196 H
Calcium 9.3
Vital Signs:
Vital Signs
Temp Pulse Resp BP Pulse Ox
98.5 F 101 16 193/110 96
02/07/25 07:36 02/07/25 07:36 02/07/25 07:36 02/07/25 08:43 02/07/25 07:36
I&O
02/06/25 02/07/25 02/08/25
06:59 06:59 06:59
Intake Total 900 / 900 720 / 720
Output Total 375 / 375
Balance 900 / 900 345 / 345
[2025-02-07 09:30] VITALS: BP 148/80
[2025-02-07 09:41] LABS: Glucose - Point of Care 233 mg/dl (70-99)
[2025-02-07] MEDS: HYDROPHOR 1 APPLIC TOPICAL (09:46)
[2025-02-07] MEDS: NOVOLOG FLEXPEN 8 UNITS SC ×3 (09:46→18:45)
[2025-02-07 11:59] LABS: Glucose - Point of Care 168 mg/dl (70-99)
--- NOTE | 2025-02-07 12:13 | W.PN.NEPH.PH ---
Today's Communication / Plan
-
increase procardia to 60 BID
Assessment/Plan
-
Assessment
Hypertensive urgency
CKD 4
Hyponatremia
Metabolic acidosis
Elevated troponin
Urinary retention
DM on insulin
Plan
stable CKD cr at 3.1
HTN-pt reports BPs always high at 160s
AM readings are high still, will increase procardia 60mg and cont Am 60mg
cont hydralazine, high dose flomax
Follow bladder scan, last one 94cc
Follow BMP
Secondary hypertensive workup pending, no ARELY
urine protein creatinine ratio high at 6.4gm/gm of cr, he likely has diabetic kidney disease along with hypertensive nephropathy
He would likely benefit from RAAS and admission as well as SGLT2 inhibitor therapy but will need to watch creatinine carefully. Unfortunately this may likely not be able to be done safely at [facility]
met acidosis is stable on po bicarb
-
-
Date of Service: February 07, 2025
CC / HPI / ROS
-
Chief Complaint:
HTN
History of Present Illness:
BP high in ams
Cr unchanged at 3.1
Na normal
high PVR still with prn straight cath, last scan 98cc
Review of Systems:
no CP/SOB
Labs
-
Labs:
WBC 8.8 10^3/uL (4.8-10.8) 02/05/25 05:52
RBC 3.73 10^6/uL (4.70-6.10) L 02/05/25 05:52
Hgb 11.5 g/dL (13.0-18.0) L 02/05/25 05:52
Hct 33.4 % (39.0-52.0) L 02/05/25 05:52
Plt Count 329 10^3/uL (130-400) 02/05/25 05:52
Sodium 134 mmol/L (135-145) L 02/07/25 06:18
Potassium 4.2 mmol/L (3.5-5.1) 02/07/25 06:18
Chloride 105 mmol/L (98-107) 02/07/25 06:18
Carbon Dioxide 23 mmol/L (22-30) 02/07/25 06:18
BUN 32 mg/dl (9-20) H 02/07/25 06:18
Creatinine 3.1 mg/dL (0.7-1.3) H 02/07/25 06:18
eGFR 22.44 02/07/25 06:18
Glucose 196 mg/dl (70-99) H 02/07/25 06:18
Calcium 9.3 mg/dl (8.4-10.2) 02/07/25 06:18
Albumin 3.5 g/dl (3.5-5.0) 02/05/25 05:52
Physical Exam
-
Vital Signs:
Vital Signs
Temp Pulse Resp BP Pulse Ox
98.5 F 101 16 193/110 96
02/07/25 07:36 02/07/25 07:36 02/07/25 07:36 02/07/25 08:43 02/07/25 07:36
Cardiovascular:: Regular rate and rhythm
Respiratory:: Bilateral: CTA
Lung Excursion:: Normal
Abdomen:: Nontender and Soft
Bowel Sounds:: Normal
Extremity Edema:: +1: Bilateral:
Ruiz Catheter: No
[2025-02-07 15:30] VITALS: BP 167/81
[2025-02-07] MEDS: NICODERM TRANSDERMAL 7 MG TRANSDERM (17:58)
--- NOTE | 2025-02-07 18:23 | PTCARENOTE ---
patient medicated twice for elevated SBP >160 with PRN Hydralazine per parameters. medicated this am for b/p of 193/101 that responded to 148/80 at 0855 and medicated again this evening for b/p 161/90 (see MAR for administration times), turns with
assist x2, will continue to monitor.
[2025-02-07 18:39] LABS: Glucose - Point of Care 101 mg/dl (70-99)
[2025-02-07] MEDS: FLOMAX 0.8 MG PO (21:08)
[2025-02-07] MEDS: SENOKOT-S 1 TABLET PO (21:09)
[2025-02-07] MEDS: LIPITOR 40 MG PO (21:10)
[2025-02-07] MEDS: DESYREL 25 MG PO (21:14)
[2025-02-07] MEDS: DESENEX/MITRAZOL/ZEASORB TOPICAL (21:15)
[2025-02-07 21:16] LABS: Glucose - Point of Care 143 mg/dl (70-99)
[2025-02-07] MEDS: LANTUS 0.1 UNITS SC (21:16)
[2025-02-07 23:00] VITALS: BP 160/82
[2025-02-08 00:40] VITALS: BP 154/74
[2025-02-08] MEDS: SYNTHROID 75 MCG PO (06:23)
[2025-02-08 06:26] LABS: Hematocrit 34.4 % (39.0-52.0); Hemoglobin 11.5 g/dL (13.0-18.0); Mean Corp Hgb Conc. 33.4 g/dL (33.0-37.0); Mean Corpuscular Volume 94.0 fL (80.0-94.0); Platelet Count 340 10^3/uL (130-400); Red Cell Dist. Width 12.6 % (11.5-14.5)
[2025-02-08 06:50] LABS: Blood Urea Nitrogen 33 mg/dl (9-20); Calcium 9.5 mg/dl (8.4-10.2); Carbon Dioxide 25 mmol/L (22-30); Chloride 103 mmol/L (98-107); Estimated Creatinine Clearance 25 ml/min; Glucose 138 mg/dl (70-99); Potassium 4.4 mmol/L (3.5-5.1); Sodium 134 mmol/L (135-145); eGFR 22.44
[2025-02-08 07:30] VITALS: BP 166/86
[2025-02-08 08:02] LABS: Aldosterone/Renin Activ Ratio 10.1 ratio (<=25.0); Renin Activity Results 0.8 ng/mL/hr
[2025-02-08 08:03] LABS: Glucose - Point of Care 162 mg/dl (70-99)
--- NOTE | 2025-02-08 08:13 | W.PN.HOSP.TC ---
Addendum entered and electronically signed by Nick Mojica MD 02/08/25 10:21:
Total time spent on d/c = 32 min. This included today's physical exam, progress note, review of laboratory and diagnostic data, preparation of discharge documents and prescriptions, and discussions about the pt's hospital course and discharge plan
with the patient and other medical manager involved in the patient's care.
Original Note:
Today's Communication/Plan
-
see plan
Assessment / Plan
Assessment / Plan
Gen: NAD, Awake and alert
Eyes: EOMI, PERRLA, no scleral icterus.
Neck: supple.
CV: remains RRR, +S1/S2, no m/r/g.
Resp: remains CTAB, no rales, wheezes, or rhonchi.
Abd: +BS, soft, NT, ND
Skin: B/L boots in place, otherwise no rashes
Neuro: CN2-12 intact
Hypertensive urgency:
-due to antihypertensive medications being held due to hypotension and bradycardia
-BP as high as 242/205 on admission
-cont Procardia XL (increased dose)/hydralazine
-flomax increased
-secondary hypertension workup: RAA normal, plasma normetanephrine slightly elevated but not high enough to suggest pheochromocytoma
-renal following, discussed with Dr. Mac and he has cleared the pt for d/c today
Depression:
-Prozac/Risperdal stopped 01/30 due to prolonged QTc
-psych saw in c/s, will not restart psychotropic medications at this time
Other problems:
Elevated troponin due to nonischemic myocardial injury
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
CKD4: Cont NaHCO3
Hypothyroidism: cont Levoxyl
Chronic cognitive impairment due to CVA
h/o CVA with L-hemiparesis: cont ASA/statin/Plavix
DM2: cont Lantus/premeal Novolog/SSI/accuchecks
Anemia of CKD: Hb stable
Former smoker: cont nicotine patch
Wounds, POA:
Right heel unstageable wound
Left heel small ecchymotic area
-Continue Multi-Podus boots
FULL/heparin
Medically cleared for d/c, case management aware.
Anticipated Discharge: Today
Subjective/Interval History
-
Date of Service: February 08, 2025
No new complaints.
Objective Data
-
Labs:
Laboratory Results
02/08/25
05:59
WBC 8.2
Hgb 11.5 L
Hct 34.4 L
Plt Count 340
Sodium 134 L
Potassium 4.4
Chloride 103
Carbon Dioxide 25
BUN 33 H
Creatinine 3.1 H
Glucose 138 H
Calcium 9.5
Vital Signs:
Vital Signs
Temp Pulse Resp BP Pulse Ox
98.9 F 101 16 166/86 97
02/08/25 07:30 02/08/25 07:30 02/08/25 07:30 02/08/25 07:30 02/08/25 07:30
I&O
02/07/25 02/08/25 02/09/25
06:59 06:59 06:59
Intake Total 720 / 720 1440 / 1440
Output Total 375 / 375 1850 / 1850
Balance 345 / 345 -410 / -410
[2025-02-08] MEDS: APRESOLINE 100 MG PO (08:18)
[2025-02-08] MEDS: PROCARDIA XL (EXTENDED RELEASE) 60 MG PO (08:18)
[2025-02-08] MEDS: LOW STRENGTH ASPIRIN 81 MG PO (08:18)
[2025-02-08] MEDS: PLAVIX 75 MG PO (08:18)
[2025-02-08] MEDS: SODIUM BICARBONATE 1300 MG PO (08:18)
[2025-02-08] MEDS: HEPARIN 5000 UNITS SC (08:18)
[2025-02-08] MEDS: PHOSLO 667 MG PO ×2 (08:20→12:34)
[2025-02-08] MEDS: NOVOLOG FLEXPEN 8 UNITS SC (08:21)
[2025-02-08] MEDS: DESENEX/MITRAZOL/ZEASORB 1 APPLIC TOPICAL (08:22)
[2025-02-08] MEDS: HYDROPHOR 1 APPLIC TOPICAL (08:23)
--- NOTE | 2025-02-08 11:03 | CM ---
Addendum entered by Zoila Mueller 02/08/25 11:43:
1530 pick up operator scheduled for pt's return to [facility] today. Family notified (Aunt Meaagn) provided verbal consent for IMM, declined email of IMM.
Original Note:
Pt is cleared for discharge back to [facility] today. Ambulance transport requested and forms provided to the [employer].
Report: [phone] or [phone]
[2025-02-08 12:02] LABS: Glucose - Point of Care 87 mg/dl (70-99)
[2025-02-08] MEDS: NOVOLOG FLEXPEN SC (12:11)
--- NOTE | 2025-02-08 13:27 | W.DCSUMMARY ---
Discharge Summary
Discharge Data
Date of Admission: 02/03/25
Date of Discharge: 02/08/25
-
Pending Results: Yes
Additional Pending Results:
Plasma catecholamines
Hospital Course
Primary diagnoses:
Hypertensive emergency
Secondary diagnoses:
Depression
Elevated troponin due to nonischemic myocardial injury
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
Chronic kidney disease stage IV
Hypothyroidism
h/o CVA with with resulting L-hemiparesis and chronic cognitive impairment
Type 2 diabetes mellitus
Anemia of chronic kidney disease stage IV
Former smoker
Wounds, POA:
Right heel unstageable wound
Left heel small ecchymotic area
Consultants:
Nephrology
Psychiatry
Imaging:
B/L Renal artery U/S: Severely limited study due to overlying bowel gas and inability for patient to breath hold. Proximal renal arteries not visualized. No stenosis noted in the limited visualization of bilateral distal renal arteries. Consider
alternative enhanced imaging (CTA or MRA) for more accurate assessment as clinically warranted.
60-year-old male presented with hypertensive emergency (asymptomatic) as outlined in the H&P done on admission. Hospital course per problem list:
Hypertensive emergency (POA): This was due to antihypertensive medications being held due to hypotension and bradycardia during the patient's prior admission. His BP was as high as 242/205 on admission. His Flomax was increased. Procardia XL was
added and increased. Hydralazine was continued. Overall the patient's blood pressure improved. Secondary hypertension workup: RAA normal, plasma normetanephrine slightly elevated but not high enough to suggest pheochromocytoma, remainder of serum
catecholamines pending. The patient was cleared for discharge by nephrology.
Depression: The patient's Prozac/Risperdal stopped 01/30 due to prolonged QTc.psychiatry saw in in consult and did not recommend restarting psychotropic medications at this time.
Discharge Plan
-
Patient Disposition: Shelter/SNF
Discharge Diagnosis/Procedures: Hypertensive emergency
Condition: Good
Diet: 2 Gram Sodium, Diabetic, Carb Controlled and Other diet
Additional Diets: renal diet
Activity: With assistance
Driving Restrictions: No driving
Blood Work: BMP and CBC in 1 week, script from PCP
Specialty Instructions: Weigh Daily- Call MD for wt gain/loss 3 lbs overnight/5 lbs in 1 week
Activity Restrictions/Additional Instructions:
Wound Care Instructions
Buttocks: clean with soap and water, silicone foam change q 3 days and prn soilage
R heel: clean with saline, skin prep periwound, Santyl to edges of wound, adaptic and dry dressing. Change daily and prn drainage.
L heel: clean with saline, silicone foam change q 3 days and prn soilage (*Can assess under foam daily)
Fiber filled offloading heel boots when in bed
pillow under calves
increase protein in diet
Follow up at wound care center call for an appointment.
Referrals:
Linda Galvan MD [Family Provider] - in less than 1 week
Prescriptions:
New
trazodone 50 mg Tablet
25 mg PO HS Qty: 0 0RF
tamsulosin 0.4 mg Capsule
0.8 mg PO HS Qty: 0 0RF
nifedipine 60 mg Tablet Extended Release
60 mg PO BID@0800,2200 Qty: 0 0RF
Continued
atorvastatin 40 mg Tablet
40 mg PO HS
acetaminophen 325 mg Tablet
650 mg PO Q6HPRN PRN (Reason: MILD pain/fever)
sennosides-docusate sodium 8.6-50 mg Tablet
1 tab-cap PO HS
clopidogrel 75 mg Tablet
75 mg PO DAILY
levothyroxine 75 mcg Tablet
75 mcg PO DAILY
bisacodyl 10 mg Suppository
10 mg CO DAILYPRN PRN (Reason: no BM AFTR MOM)
hydralazine 100 mg Tablet
100 mg PO TID
Fleet Enema 19-7 gram/118 mL Enema
118 ml CO DAILYPRN PRN (Reason: if suppository not affective)
aspirin 81 mg Tablet,Chewable
81 mg PO DAILY
nicotine 7 mg/24 hr Patch 24 Hour
1 patch TRANSDERMAL Q24H
insulin lispro 100 unit/mL Insulin Pen
8 unit SC MEALS
cholecalciferol (vitamin D3) 1,250 mcg (50,000 unit) Capsule
1,250 mcg PO MO
calcium acetate 667 mg Tablet
667 mg PO AC
sodium bicarbonate 650 mg Tablet
1,300 mg PO BID
insulin glargine [Lantus Solostar U-100 Insulin] 100 unit/mL (3 mL) Insulin Pen
10 unit SC HS Qty: 0 0RF
magnesium hydroxide [Milk of Magnesia] 400 mg/5 mL Suspension
30 ml PO [id number] PRN (Reason: constipation)
Discontinued
isosorbide dinitrate 30 mg Tablet
30 mg PO DAILY
nifedipine 60 mg Tablet Extended Release 24hr
60 mg PO DAILY
tamsulosin 0.4 mg Capsule
0.4 mg PO HS
Discharge Orders:
Discharge Patient (As Directed); Ordered 02/08/25
Ordered By: Nick Mojica
Discharge Date and Time
Print Language: [id number]
[2025-02-08 15:09] VITALS: BP 145/70
[2025-02-08 15:29] VITALS: BP 150/80
== END 2025-02-08 15:51 | DRG 305 ==
LOC: 3 WEST ACU 15:57
PROVIDERS: Clinical Nurse Specialist Family Health; Emergency Medicine; Internal Medicine; Physician Assistant; Student in an Organized Health Care Education/Training Program; ADMITTING PHYSICIAN Internal Medicine; ATTENDING PHYSICIAN Internal Medicine; CONSULT PHYSICIAN Specialist; EMERGENCY PHYSICIAN Emergency Medicine; FAMILY PHYSICIAN Internal Medicine; OTHER PHYSICIAN Psychiatry & Neurology Psychiatry
DX: I16.1 Hypertensive emergency (principal); N18.4 Chronic kidney disease, stage 4 (severe); I5A Non-ischemic myocardial injury (non-traumatic); I69.354 Hemiplegia and hemiparesis following cerebral infarction affecting left non-dominant side; E87.1 Hypo-osmolality and hyponatremia; E87.20 Acidosis, unspecified; N17.9 Acute kidney failure, unspecified; Z16.24 Resistance to multiple antibiotics; E11.22 Type 2 diabetes mellitus with diabetic chronic kidney disease; I13.0 Hypertensive heart and chronic kidney disease with heart failure and stage 1 through stage 4 chronic kidney disease, or unspecified chronic kidney disease; E03.9 Hypothyroidism, unspecified; I69.319 Unspecified symptoms and signs involving cognitive functions following cerebral infarction; E11.65 Type 2 diabetes mellitus with hyperglycemia; Z87.891 Personal history of nicotine dependence; D63.1 Anemia in chronic kidney disease; N40.1 Benign prostatic hyperplasia with lower urinary tract symptoms; R33.8 Other retention of urine; I25.10 Atherosclerotic heart disease of native coronary artery without angina pectoris; K21.9 Gastro-esophageal reflux disease without esophagitis; Z95.1 Presence of aortocoronary bypass graft; Z91.041 Radiographic dye allergy status; Z79.82 Long term (current) use of aspirin; Z79.890 Hormone replacement therapy; Z79.899 Other long term (current) drug therapy; Z79.4 Long term (current) use of insulin; Z79.02 Long term (current) use of antithrombotics/antiplatelets; E78.00 Pure hypercholesterolemia, unspecified; F32.9 Major depressive disorder, single episode, unspecified; I1A.0 Resistant hypertension
CPT/HCPCS: 80048; 80053; 81003; 81015; 82043; 82088; 82384; 82570; 82962; 83835; 84156; 84244; 84484; 85025; 85027; 87070; 93005; 93975; 96374; 97163; 99285